=== PATIENT | female | born 1955 | race Caucasian/White ===

== ENCOUNTER 2022-01-27 00:52 | Day surgery (SDC) | payer MEDICARE, SELFPAY ==
[2022-01-13 12:48] VITALS: BMI 32.5
[2022-01-27 12:08] VITALS: BP 142/48; PULSE 66; RESP 18; TEMP 35.9; O2SAT 100; BMI 33.1
[2022-01-27] MEDS: LACTATED RINGERS 1,000 ML 150 ML IV CONT (12:32)
--- NOTE | 2022-01-27 12:32 | P.PNAN_ITS ---
Anes - Initial Pre Proc Eval Procedure: Operation Date: 01/27/22 13:30 Proposed Procedures p Screening Colonoscopy - Kehinde Broussard MD Date/Time: 01/27/22 12:32 Surgeon: Kehinde Broussard MD Pre Op Diagnosis: hx of colon polyps Patient Data Age: 66 Gender: F Height: 1.65 m Weight: 90.3 kg Last Vital Signs Temp 96.7 F L 01/27/22 12:08 Pulse 66 01/27/22 12:08 Resp 18 01/27/22 12:08 BP 142/48 H 01/27/22 12:08 Pulse Ox 100 01/27/22 12:08 O2 Del Method Room Air 01/27/22 12:08 Allergies Allergy/AdvReac Type Severity Reaction Status Date / Time nitrofurantoin Allergy Severe Swelling Verified 01/27/22 12:15 [From Macrodantin] of Lip/Tongue/Throat Sulfa (Sulfonamide Allergy Severe Swelling Verified 01/27/22 12:15 Antibiotics) of Lip/Tongue/Throat Home Medications Medication Instructions Recorded Confirmed Type alendronate 70 mg tablet 70 mg PO WEEKLY 01/13/22 01/27/22 History atorvastatin 10 mg tablet 10 mg PO DAILY 01/13/22 01/27/22 History brimonidine 0.2 % eye drops 1 drp EACH EYE BID 01/13/22 01/27/22 History bupropion HCl 300 mg 24 hr tablet, 300 mg PO DAILY 01/13/22 01/27/22 History extended release empagliflozin 25 mg tablet 25 mg PO DAILY 01/13/22 01/27/22 History (Jardiance) latanoprost 0.005 % eye drops 1 drp EACH EYE HS 01/13/22 01/27/22 History lisinopril 10 0.5 tablet PO DAILY 01/13/22 01/27/22 History mg-hydrochlorothiazide 12.5 mg tablet metformin 1,000 mg tablet 1,000 mg PO DAILY 01/13/22 01/27/22 History omega-3 fatty acids 1,000 mg PO DAILY 01/13/22 01/27/22 History omeprazole 40 mg capsule,delayed 40 mg PO DAILY 01/13/22 01/27/22 History release timolol maleate 0.5 % eye drops 1 drp EACH EYE BID 01/13/22 01/27/22 History trazodone 50 mg tablet 25 - 50 mg PO HS 01/13/22 01/27/22 History vitamin B complex 1 cap PO DAILY 01/13/22 01/27/22 History Patient hx anesthesia problems: none Family hx anesthesia problems: none Results Review: All pre-operative results and documents have been reviewed as part of the pre- operative evaluation. [facility] Social History Social History Smoking status: Never smoker Alcohol intake: never Substance use: never Substance use type: does not use Living arrangements: with family Spiritual care concerns: No Anes - Eval Final PreProcedure Day of Procedure 01/27/22 12:32 Patient weight: obese Heart: regular rate and rhythm Lungs: clear to auscultation Airway: Mallampati scale class II Neurological: alert and oriented Last oral intake: >/= 8 hours ASA classification: II Emergent: no Anesthetic plan: proceed Anesthesia type and monitoring: general GIVS and standard monitoring Results Review: All pre-operative results and documents have been reviewed as part of the pre- operative evaluation. Informed Consent: The patient's anesthetic plan and its attendant risks and benefits were discussed with the patient/family/POA. Questions were solicited and answers provided to the satisfaction of the patient/family/POA.
[2022-01-27 12:34] LABS: Glucose Point of Care 221 mg/dl (65-105)
--- NOTE | 2022-01-27 12:46 | PM.HPGS ---
History of Present Illness History of Present Illness Consent: Risks, benefits, and alternatives have been discussed and questions answered. Patient agrees to proceed with procedure. Chief complaint: hx of colon polyps Narrative: Maine Calvo is a 66 year old female referred for colon cancer screening. She had a polyp removed about 5 years ago. Review of Systems Review of Systems: All systems reviewed & are unremarkable except as noted in HPI and below PMFSH Social History Social History Smoking status: Never smoker Alcohol intake: never Substance use: never Substance use type: does not use Living arrangements: with family Spiritual care concerns: No Meds Home Medications and Allergies Home Medications Medication Instructions Recorded Confirmed Type alendronate 70 mg tablet 70 mg PO WEEKLY 01/13/22 01/27/22 History atorvastatin 10 mg tablet 10 mg PO DAILY 01/13/22 01/27/22 History brimonidine 0.2 % eye drops 1 drp EACH EYE BID 01/13/22 01/27/22 History bupropion HCl 300 mg 24 hr tablet, 300 mg PO DAILY 01/13/22 01/27/22 History extended release empagliflozin 25 mg tablet 25 mg PO DAILY 01/13/22 01/27/22 History (Jardiance) latanoprost 0.005 % eye drops 1 drp EACH EYE HS 01/13/22 01/27/22 History lisinopril 10 0.5 tablet PO DAILY 01/13/22 01/27/22 History mg-hydrochlorothiazide 12.5 mg tablet metformin 1,000 mg tablet 1,000 mg PO DAILY 01/13/22 01/27/22 History omega-3 fatty acids 1,000 mg PO DAILY 01/13/22 01/27/22 History omeprazole 40 mg capsule,delayed 40 mg PO DAILY 01/13/22 01/27/22 History release timolol maleate 0.5 % eye drops 1 drp EACH EYE BID 01/13/22 01/27/22 History trazodone 50 mg tablet 25 - 50 mg PO HS 01/13/22 01/27/22 History vitamin B complex 1 cap PO DAILY 01/13/22 01/27/22 History Allergies Allergy/AdvReac Type Severity Reaction Status Date / Time nitrofurantoin Allergy Severe Swelling Verified 01/27/22 12:15 [From Macrodantin] of Lip/Tongue/Throat Sulfa (Sulfonamide Allergy Severe Swelling Verified 01/27/22 12:15 Antibiotics) of Lip/Tongue/Throat Vital Signs Vital Signs - 24 hr 01/27/22 12:08 Temperature 35.9 C L Pulse Rate 66 Respiratory Rate 18 Blood Pressure 142/48 H Pulse Oximetry 100 Oxygen Delivery Room Air Exam Const: General: alert Orientation/consciousness: patient oriented x3 Resp: Auscultation: clear to auscultation bilaterally Cardio: Rhythm: regular rhythm GI: GI Palp: Yes Soft to palpation and No Tenderness to palpation present (GI) Neuro: General: patient oriented x3 Assessment and Plan Assessment and plan (1) Colon cancer screening: Code(s): Z12.11 - Encounter for screening for malignant neoplasm of colon Status: Acute Assessment and Plan: Colonoscopy with possible biopsy or polypectomy or cautery or injection of substances.
[2022-01-27] MEDS: SIMETHICONE ORAL SUSPENSION 20 MG/0.3 ML 30 ML BOTTLE 0.6 ML IRRIGATION (13:03)
[2022-01-27 13:13] VITALS: BP 130/53; PULSE 62; RESP 21; O2SAT 100
[2022-01-27 13:23] VITALS: BP 131/63; PULSE 60; RESP 17; O2SAT 100
[2022-01-27 13:33] VITALS: BP 135/54; PULSE 57; RESP 16; O2SAT 100
== END 2022-01-27 13:40 | disposition home or self-care (01) ==
PROVIDERS: Visit Provider Internal Medicine Gastroenterology
PROC: 0DJD8ZZ Inspection of Lower Intestinal Tract, Via Natural or Artificial Opening Endoscopic (ICD-10-PCS; CPT 45378; principal; 2022-01-27 13:30)
DX: Z12.11 Encounter for screening for malignant neoplasm of colon (principal); Z86.010 Personal history of colon polyps; E66.9 Obesity, unspecified; Z68.33 Body mass index [BMI] 33.0-33.9, adult
CPT/HCPCS: G0105; 82948; J2704; J7120

== ENCOUNTER 2022-11-23 13:50 | Emergency (ER) | payer MEDICARE, SELFPAY ==
--- NOTE | ~2022-11-23 | XR_ITS ---
EXAMINATION: XR lumbar spine 2-3V DATE: 11/23/2022 14:50 INDICATION: Low back pain. TECHNIQUE: 3 views of lumbar spine including standing views were obtained. COMPARISON: CT abdomen and pelvis 09/14/2006. FINDINGS: There is 5 mm anterolisthesis of L4 on L5. There is a compression fracture of L2 with less than 1/5 loss of height. There is mildly decreased disc height at L1-L2, L3-L4, and L4-L5. There is m ultilevel facet joint osteoarthritis, severe bilaterally at L4-L5 and L5-S1. IMPRESSION: 1. Age-indeterminate L2 compression fracture. 2. Moderate lumbar spondylosis. Reviewed, dictated and finalized at location A.
--- NOTE | ~2022-11-23 | CT_ITS ---
EXAMINATION: CT lumbar spine wo con DATE: 11/23/2022 15:46 INDICATION: Fall. Low back pain. TECHNIQUE: Computed tomography (CT) of the lumbar spine was performed without intravenous contrast. A utomated exposure control and iterative reconstruction technique were employed. The dose-length produ ct was 1193.86 mGy-cm. COMPARISON: Lumbar spine radiographs 11/23/2022 FINDINGS: There is 3 degrees levocurvature of lumbar spine. There is 5 mm anterolisthesis of L4 on L5 . There is an acute compression fracture of L2 with 1/5 loss of height. There is mildly decreased dis c height at L3-L4 and L4-L5. The following disc levels are specifically discussed: L1-L2: The disc does not extend beyond the endplate margin. There is severe right and moderate left f acet joint osteoarthritis. There is no neural foraminal stenosis. There is no central canal stenosis. L2-L3: The disc is bulging. There is severe bilateral facet joint osteoarthritis. There is mild bilat eral neural foraminal stenosis. There is mild central canal stenosis. L3-L4: The disc is bulging. There is severe bilateral facet joint osteoarthritis. There is mild bilat eral neural foraminal stenosis. There is mild central canal stenosis. L4-L5: The disc is bulging. There is severe bilateral facet joint osteoarthritis. There is mild bilat eral neural foraminal stenosis. There is mild central canal stenosis. L5-S1: The disc is bulging. There is severe bilateral facet joint osteoarthritis. There is mild bilat eral neural foraminal stenosis. There is mild central canal stenosis. IMPRESSION: 1. Acute L2 compression fracture. 2. Mild lumbar spondylosis. Reviewed, dictated and finalized at location A.
--- NOTE | ~2022-11-23 | CT_ITS ---
EXAMINATION: CT pelvis wo con DATE: 11/23/2022 15:47 INDICATION: Fall. TECHNIQUE: Computed tomography (CT) of the pelvis was performed without intravenous contrast. Automat ed exposure control and iterative reconstruction technique were employed. The dose-length product was 898.94 mGy-cm. COMPARISON: None FINDINGS: Subtle oblique lucency in the right inferior pubic ramus (axial image 96 and 97/122). No di slocation. No other potential fracture identified. Degenerative changes in the lumbar spine, bilatera l hips, bilateral SI joints, and pubic symphysis. The uterus is absent. Remaining pelvic organs are w ithin normal limits. Normal appendix. Small uncomplicated fat-containing umbilical hernia. IMPRESSION: Suspected, subtle, nondisplaced right inferior pubic ramus fracture. If consistent with the clinical picture, MR of the pelvis would be helpful for confirmation/exclusion and the identification of addit ional subtle injury, if present. Reviewed, dictated and finalized at location K. IMPRESSION: Suspected, subtle, nondisplaced right inferior pubic ramus fracture. If consist ent with the clinical picture, MR of the pelvis would be helpful for confirmati on/exclusion and the identification of additional subtle injury, if present.
[2022-11-23 13:54] VITALS: BP 156/80; PULSE 60; RESP 16; TEMP 36.2; O2SAT 100
--- NOTE | 2022-11-23 15:29 | ED.GENADULT ---
HPI - General Adult General Chief complaint: Back Pain/Injury Stated complaint: fall-back pain Time Seen by Provider: 11/23/22 15:07 History of Present Illness HPI narrative: Maine Calvo is a 67 y/o female with PMHx HLD, HTN, DM who presents today after a mechaincal ground level fall. She states that she was getting out of the car at about 1130 and was walking backwards to shut the door and her heals hit a curb and she fell right down on her bottom/ lower back. She was ambulatory immediately after the fall but comes in now due to having continued low back pain. Denies any numbness tingling to her extremities or loss of bowel or bladder. Although she does state that she has felt like she might have a UTI that started a few days ago. She denies hitting her head no LOC. Fall witnessed by her who is here with her today. Related Data Home Medications Medication Instructions Recorded Confirmed atorvastatin 10 mg tablet 10 mg PO DAILY 01/13/22 09/22/22 brimonidine 0.2 % eye drops 1 drp EACH EYE BID 01/13/22 09/22/22 bupropion HCl 300 mg 24 hr tablet, 300 mg PO DAILY 01/13/22 09/22/22 extended release empagliflozin 25 mg tablet 25 mg PO DAILY 01/13/22 09/22/22 (Jardiance) latanoprost 0.005 % eye drops 1 drp EACH EYE HS 01/13/22 09/22/22 lisinopril 10 0.5 tablet PO DAILY 01/13/22 09/22/22 mg-hydrochlorothiazide 12.5 mg tablet metformin 1,000 mg tablet 1,000 mg PO DAILY 01/13/22 09/22/22 omega-3 fatty acids 1,000 mg PO DAILY 01/13/22 09/22/22 omeprazole 40 mg capsule,delayed 40 mg PO DAILY 01/13/22 09/22/22 release timolol maleate 0.5 % eye drops 1 drp EACH EYE BID 01/13/22 09/22/22 vitamin B complex 1 cap PO DAILY 01/13/22 09/22/22 empagliflozin 25 mg tablet 25 mg PO DAILY 09/22/22 09/22/22 (Jardiance) Allergies Allergy/AdvReac Type Severity Reaction Status Date / Time ciprofloxacin [From Cipro] Allergy Severe Swelling Verified 09/22/22 15:06 of Lip/Tongue/Throat nitrofurantoin Allergy Severe Swelling Verified 09/22/22 15:06 [From Macrodantin] of Lip/Tongue/Throat Sulfa (Sulfonamide Allergy Severe Swelling Verified 09/22/22 15:06 Antibiotics) of Lip/Tongue/Throat dulaglutide [From Trulicity] AdvReac Intermediate Vomiting Verified 09/22/22 15:06 Review of Systems Review of Systems: CONSTITUTIONAL: Denies fever, chills, or sweats. EYES: Denies visual changes, redness, or discharge. ENT: Denies rhinorrhea, congestion, sore throat, or otalgia. CARDIOVASCULAR: Denies chest pain, palpitations, or edema. RESPIRATORY: Denies cough or dyspnea. GASTROINTESTINAL: Denies abdominal pain, nausea, vomiting, or diarrhea. GENITOURINARY: Denies dysuria or hematuria. SKIN: Denies rash or itching. MUSCULOSKELETAL: Reports lower back pain, and some lower pelvic pain NEUROLOGIC: Denies headache, numbness, dizziness, or weakness. PSYCHIATRIC: Denies anxiety or depression. [facility] Past Medical History Medical History Depression Glaucoma High blood pressure High cholesterol Type 2 diabetes mellitus Surgical History Surgical History H/O knee surgery H/O: hysterectomy History of delivery Family History Family History Sibling Thyroid disease Father Acute myocardial infarction Social History Social History Smoking status: Never smoker Alcohol intake: never Substance use: never Substance use type: does not use Lack of Transportation: No Lack of Food: Never True Current Housing: I Have Housing Concerned About Future Housing: No Difficulty Paying Gas/Electric Bills: No Difficulty Paying for Meds: No Currently Unemployed: No Education: Decline to Answer Difficulty w/ Childcare or Family Care: Decline to Answer Living arrangements: with fami
[2022-11-23] MEDS: KETOROLAC 30 MG/ML VIAL (*BKC) IM (15:55)
[2022-11-23 16:31] LABS: Appearance Urine Cloudy (Clear); Bacteria Urine 2+ /hpf; Bilirubin Urine Negative (Negative); Blood Urine Trace (Negative); Color Urine Dark Yellow (Yellow); Glucose Urine UA 3+ mg/dL (Negative); Ketones Urine Negative (Negative); Leukocyte Esterase Ur 2+ LEU/UL (Negative); Need Manual Microscopic Reviewed; Nitrate Urine Negative (Negative); Protein Urine Negative (Negative); RBC Urine 0-2 /hpf (0-2); Specific Grav Ur 1.022 (1.001-1.035); Squamous Epithelial Cell Urine Moderate /hpf (Few); Urobilinogen Urine 0.2 mg/dL (<2.0); WBC Clumps Urine Present /HPF; WBC Urine >100 /hpf; pH Urine 5.5 (5.0-9.0)
[2022-11-23 16:35] LABS: Add Urine Microscopic? YES
--- NOTE | 2022-11-23 17:21 | PC.NURSE ---
[facility] here to size and place patient in TLSO brace.
[2022-11-23] MEDS: LIDOCAINE HCL 1% LOCAL INJ 10 ML VIAL INFILTRATE (17:36)
[2022-11-23] MEDS: cefTRIAXone 1 GM VIAL IM (17:36)
[2022-11-23 18:12] VITALS: BP 148/78; PULSE 64; RESP 17; O2SAT 99
== END 2022-11-23 18:13 | disposition home or self-care (01) ==
PROVIDERS: Emergency Provider Nurse Practitioner Family
DX: N39.0 Urinary tract infection, site not specified (principal); S32.020A Wedge compression fracture of second lumbar vertebra, initial encounter for closed fracture; S32.591A Other specified fracture of right pubis, initial encounter for closed fracture; F32.A Depression, unspecified; I10 Essential (primary) hypertension; E78.5 Hyperlipidemia, unspecified; E11.9 Type 2 diabetes mellitus without complications; Z79.84 Long term (current) use of oral hypoglycemic drugs; V48.4XXA Person boarding or alighting a car injured in noncollision transport accident, initial encounter
CPT/HCPCS: 72100; 72131; 72192; 81001; 87077; 87086; 87147; 87186; 96372; 99284; J0696; J1885

== ENCOUNTER 2022-11-26 20:24 | Observation (INO) | payer MEDICARE, SELFPAY ==
--- NOTE | ~2022-11-26 | CT_ITS ---
EXAMINATION: CT abdomen pelvis w con DATE: 11/27/2022 02:17 INDICATION: Abdominal pain. Bloating. Nausea and vomiting. TECHNIQUE: Computed tomography (CT) of the abdomen and pelvis was performed with 100 mL Omnipaque 350 intravenous contrast. Automated exposure control and iterative reconstruction technique were employe d. The dose-length product was 1384.08 mGy-cm. COMPARISON: CT pelvis 11/23/2022, CT lumbar spine 11/23/2022, CT abdomen and pelvis 09/14/06 FINDINGS: The visualized portions of the lung bases demonstrate minimal atelectasis. No pleural effus ion. The heart size is normal. No pericardial effusion. There is a 5 mm cyst in the liver. The gallbl adder, spleen, pancreas, and left adrenal gland are normal. There is a 10 mm mass in right adrenal gl and measuring soft tissue attenuation, new from 09/14/2006. The kidneys are normal. There are no dilat ed loops of bowel. The appendix is normal. There are no pathologically enlarged lymph nodes. There is trace pelvic ascites. There is a compression fracture of L2 with less than 1/5 loss of height. There is mild lumbar and thoracic spondylosis. IMPRESSION: 1. 10 mm right adrenal mass. In the absence of known malignancy, this finding is likely an adenoma. 2. L2 compression fracture, stable from 11/23/2022. Reviewed, dictated and finalized at location E. IMPRESSION: 1. 10 mm right adrenal mass. In the absence of known malignancy, this finding i s likely an adenoma. 2. L2 compression fracture, stable from 11/23/2022.
[2022-11-26 20:26] VITALS: BP 105/63; PULSE 65; RESP 18; TEMP 36.3; O2SAT 100
[2022-11-26 20:27] VITALS: BP 187/71; PULSE 62; RESP 19; TEMP 36.4; O2SAT 100
[2022-11-26 20:38] LABS: Basophils Percent Auto 0.5 % (0.2-1.2); Eosinophils Absolute Auto 0.2 K/mm3 (0-0.3); Eosinophils Percent Auto 2.9 % (0-4.4); Hematocrit 38.3 % (37.0-47.0); Hemoglobin 13.6 g/dL (12.0-15.0); Immature Granulocyte Absolute 0.03 K/mm3 (0.00-0.031); Immature Granulocyte Percent A 0.4 % (0-0.5); Lymphocytes Absolute Auto 2.11 K/mm3 (0.9-3.2); Lymphocytes Percent Auto 26.2 % (18.3-44.2); Mean Corpuscular HGB Conc 35.5 g/dl (32-36); Mean Corpuscular Hemoglobin 30.5 pg (26-34); Mean Corpuscular Volume 85.9 fl (80-100); Mean Platelet Volume 11.3 fl (7.4-10.4); Monocytes Absolute Auto 0.8 K/mm3 (0.1-0.6); Monocytes Percent Auto 9.4 % (2.6-8.5); Neutrophils Absolute Auto 4.9 K/mm3 (1.3-6.7); Neutrophils Percent Auto 60.6 % (45.5-73.1); Platelet Count Result 210 k/mm3 (150-375); Red Blood Count 4.46 M/mm3 (4.2-5.4); Red Cell Distribution Width 11.8 % (11.5-14.5); White Blood Count 8.1 K/mm3 (4.5-10.0)
[2022-11-26 21:02] LABS: Alanine Aminotransferase 27 U/L (6-35); Albumin Level 4.1 g/dL (3.5-5.1); Alkaline Phosphatase 131 U/L (38-126); Anion Gap 12 mmol/L (8-16); Aspartate Amino Transferase 34 U/L (14-36); Bilirubin,Total 0.6 mg/dL (0.2-1.3); Blood Urea Nitrogen 12 mg/dL (7-17); Carbon Dioxide 18 mmol/L (22-30); Chloride 87 mmol/L (98-107); Estimated CRCL calculation 61 ml/min; Estimated Glomerular Filt Rate > 60; Glucose 144 mg/dL (65-110); Lipase 94 U/L (23-300); Potassium 4.2 mmol/L (3.4-5.0); Sodium 117 mmol/L (137-145)
--- NOTE | 2022-11-26 21:58 | PC.NURSE ---
Pt reports urinary retention since around 11AM today. Pt bladder scanned by this RN. 611mL scanned.
[2022-11-26 21:59] VITALS: BP 151/48; PULSE 60; RESP 13; O2SAT 100
[2022-11-26 22:39] LABS: Glucose Point of Care 148 mg/dl (65-105)
--- NOTE | 2022-11-26 22:41 | PC.NURSE ---
Pt reported urinary retention, after bladder scanning pt this RN asked pt to attempt to urinate. Pt able to void 500mL of urine
[2022-11-26 22:42] LABS: Appearance Urine Clear (Clear); Bilirubin Urine Negative (Negative); Blood Urine Negative (Negative); Color Urine Yellow (Yellow); Glucose Urine UA 3+ mg/dL (Negative); Ketones Urine 1+ mg/dL (Negative); Leukocyte Esterase Ur Negative LEU/UL (Negative); Nitrate Urine Negative (Negative); Protein Urine Negative (Negative); Specific Grav Ur 1.011 (1.001-1.035); Urobilinogen Urine 0.2 mg/dL (<2.0)
[2022-11-26 23:05] LABS: Add Urine Microscopic? NO
[2022-11-27] VITALS (8 sets, daily range): BP systolic 128–155; BP diastolic 29–89; PULSE 58–86; RESP 12–18; TEMP 36.3–36.7; O2SAT 97–100; BMI 34.7
--- NOTE | 2022-11-27 00:20 | ED.GENADULT ---
HPI - General Adult General Chief complaint: Unspecified Stated complaint: vomiting, dirrhea, weakness Time Seen by Provider: 11/26/22 23:22 History of Present Illness HPI narrative: this is a 67-year-old female presenting ED with a chief complaint of abdominal pain. Patient was seen here several days ago and diagnosed with a lumbar compression fracture and a UTI was placed on Keflex. Since then she has been taking the Keflex but says she has had difficulty urinating. Patient notes that she has been drinking large quantities of water per day. Patient is also complaining of crampy abdominal pain and feels like she has a urinary tract infection. Patient is complaining of feeling weak and generally unwell but denies fevers chest pain difficulty breathing nausea vomiting or diarrhea. Related Data Home Medications Medication Instructions Recorded Confirmed atorvastatin 10 mg tablet 10 mg PO DAILY 01/13/22 09/22/22 brimonidine 0.2 % eye drops 1 drp EACH EYE BID 01/13/22 09/22/22 bupropion HCl 300 mg 24 hr tablet, 300 mg PO DAILY 01/13/22 09/22/22 extended release empagliflozin 25 mg tablet 25 mg PO DAILY 01/13/22 09/22/22 (Jardiance) latanoprost 0.005 % eye drops 1 drp EACH EYE HS 01/13/22 09/22/22 lisinopril 10 0.5 tablet PO DAILY 01/13/22 09/22/22 mg-hydrochlorothiazide 12.5 mg tablet metformin 1,000 mg tablet 1,000 mg PO DAILY 01/13/22 09/22/22 omega-3 fatty acids 1,000 mg PO DAILY 01/13/22 09/22/22 omeprazole 40 mg capsule,delayed 40 mg PO DAILY 01/13/22 09/22/22 release timolol maleate 0.5 % eye drops 1 drp EACH EYE BID 01/13/22 09/22/22 vitamin B complex 1 cap PO DAILY 01/13/22 09/22/22 empagliflozin 25 mg tablet 25 mg PO DAILY 09/22/22 09/22/22 (Jardiance) Allergies Allergy/AdvReac Type Severity Reaction Status Date / Time ciprofloxacin [From Cipro] Allergy Severe Swelling Verified 09/22/22 15:06 of Lip/Tongue/Throat nitrofurantoin Allergy Severe Swelling Verified 09/22/22 15:06 [From Macrodantin] of Lip/Tongue/Throat Sulfa (Sulfonamide Allergy Severe Swelling Verified 09/22/22 15:06 Antibiotics) of Lip/Tongue/Throat dulaglutide [From Trulicity] AdvReac Intermediate Vomiting Verified 09/22/22 15:06 PMFSH Past Medical History Medical History Depression Glaucoma High blood pressure High cholesterol Type 2 diabetes mellitus Surgical History Surgical History H/O knee surgery H/O: hysterectomy History of delivery Family History Family History (Updated 11/25/22 @ 11:50 by Wendy Santiago MA) Sibling Thyroid disease Father Acute myocardial infarction Mother Alcoholism Social History Social History Smoking status: Never smoker Alcohol intake: never Substance use: never Substance use type: does not use Lack of Transportation: No Lack of Food: Never True Current Housing: I Have Housing Concerned About Future Housing: No Difficulty Paying Gas/Electric Bills: No Difficulty Paying for Meds: No Currently Unemployed: No Education: Decline to Answer Difficulty w/ Childcare or Family Care: Decline to Answer Living arrangements: with family Occupation/Education: retired Gender identity (if verbalized by the patient): Female Sexual Orientation (if Verbalized by the Patient): Straight or Heterosexual Spiritual care concerns: No Agree to blood products: Yes Exam Narrative: APPEARANCE: No apparent distress. Head: atraumatic. EYES: EOMI, NOSE: Atraumatic NECK: Trachea midline RESPIRATORY: No increased rate of breathing CARDIOVASCULAR: RRR, symmetric bilateral lower extremity edema ABDOMINAL: mild tenderness to palpation in the suprapubic area without guarding or rebound MUSCULOSKELETAl: No obvious deformities NEURO: Alert. Moving 4/4 extremities SKI
[2022-11-27] MEDS: HYDROcodone/acetaminophen (*CRX) 5-325 MG TABLET 1 TAB PO (03:28)
[2022-11-27] MEDS: ONDANSETRON INJ 4 MG/2 ML VIAL IV PUSH (06:36)
--- NOTE | 2022-11-27 06:48 | ADMGEN ---
This patient, Maine Calvo, was admitted to 2 Medical Room 259-01. Patient/family oriented to hospital policies and general routines including ID bracelet, bed and alarms, visiting hours, pain management, procedures, bathroom and other care routines, personal items, smoking policy, room service/diet, and visiting hours. Information on how to activate the Rapid Response Team has been discussed. Patient/Family are encouraged to report perceived risks to care and to ask questions if they do not understand what they are told or what they should do.
[2022-11-27 08:27] LABS: Glucose Point of Care 119 mg/dl (65-105)
[2022-11-27 08:53] LABS: Sodium 121 mmol/L (137-145)
[2022-11-27 09:51] LABS: Sodium Urine Random 17 meq/L
[2022-11-27] MEDS: PANTOPRAZOLE 40 MG TABLET PO (10:50)
[2022-11-27] MEDS: SODIUM CHLORIDE 0.9% IV 1,000 ML 100 ML IV CONT (10:50)
[2022-11-27] MEDS: EMPAGLIFLOZIN 25 MG TABLET PO (10:50)
[2022-11-27] MEDS: buPROPion HCL XL (24 HR) 150 MG TABCR 300 MG PO (10:50)
[2022-11-27] MEDS: ATORVASTATIN 10 MG TABLET PO (10:50)
[2022-11-27 11:51] LABS: Glucose Point of Care 223 mg/dl (65-105)
--- NOTE | 2022-11-27 12:33 | PM.CNNEP ---
Assessment and Plan Assessment and plan (1) Hyponatremia: Code(s): E87.1 - Hypo-osmolality and hyponatremia Status: Acute Assessment and Plan: presumably acute risk factors for low sodium recent excessive free water intake possible prerenal factors HCTZ use PPI use NSAID use acute pain (from #3) some improvement in sodium already (without specific intervention) check TSH, cortisol, SPE and UPEP as well as urine electrolytes trial of normal saline seems reasonable for now goal of therapy is rate of change in sodium of 6 - 8mmol/L over 24 hours (hence, no higher than 125mmol/L by 8:30pm today) follow trend of repeat sodium levels (2) Urinary tract infection: Code(s): N39.0 - Urinary tract infection, site not specified Status: Acute Assessment and Plan: previous urine culture results noted on antibiotics (3) Lumbar compression fracture: Code(s): S32.000A - Wedge compression fracture of unspecified lumbar vertebra, initial encounter for closed fracture Status: Acute Assessment and Plan: as noted by previous and current imaging following with Neurosurgery as an outpatient no surgical intervention needed I will continue to follow the patient with you while she remains hospitalized and make further recommendations as needed. Thank you for allowing me present care this patient. History of Present Illness Reason for Consult Consult date: 11/27/22 Reason for consult: hyponatremia Chief Complaint Chief complaint: hyponatremia History of Present Illness Narrative: The patient is a 67-year-old female with a past medical history as outlined below who presented to [facility] Emergency room with abdominal pain. The patient was seen a few days ago at [facility] emergency room after she suffered a fall. She was apparently getting out of her car and walking backwards when her heels got stuck in the curb resulting in the fall where she landed on her bottom/back. She immediately had pain but was able to get up and walk. Further evaluation during that ER visit noted a lumbar compression fracture by imaging as well as a urinary tract infection. She was discharged to follow up with neuro surgery regarding her lumbar compression fracture and was prescribed Keflex for her urinary tract infection. She did see neurosurgery recently in the office with recommendations for a back brace for comfort and supportive therapy as no operative intervention was needed. She reports compliance with taking her Keflex a but is noted increasing difficulty urinating. In effort to promote urine output, she has been drinking large quantities of water in the hope that this would resolve the situation/problem. However, in spite of her increased fluid intake, she has not noted any increase in urine output and now has a crampy abdominal pain that feels like a urinary tract infection despite the ongoing antibiotic therapy. She also reports feeling generalized weakness and not feeling well but denies any other subjective symptoms. She presented to the ER for further assessment. Workup and evaluation emergency room demonstrated the patient to be hemodynamically stable and in no acute distress. Routine blood test demonstrated no significant abnormalities aside from significant hyponatremia with a sodium level of 117. on her previous ER evaluation a few days ago, no blood work was done and there are no other previous labs to compare to. Her repeat urine testing did not show any evidence of infection but she did undergo a CT scan of the abdomen pelvis given her abdominal pain which demonstrated a 10 mm right adrenal mass thought to be at adenoma and the previous we known L2 compression fracture but no other intra-abdominal pathology. Given her significant hyponatremia, she was admitted to the hospital for further evaluation and therapy. Since her admission, her sodium level has
[2022-11-27 12:34] LABS: Sodium 123 mmol/L (137-145)
--- NOTE | 2022-11-27 14:21 | PM.IMHP ---
H&P: HPI History of Present Illness Date/Time: 11/27/22 14:21 Chief Complaint: abdominal pain Narrative: 67-year-old female present to the ED with chief complaint of abdominal pain. CT was in the ER after a fall few days back and sustained a lumbar compression fracture and UTI. She has been placed on Keflex. She states she has been taking keep legs but still has difficulty urination. She has been drinking large amount of water to get to urinate. She started having crampy abdominal pain and started having generalized weakness and not feeling well no fever shortness of breath cough chest pain. No nausea vomiting or diarrhea. The ED evaluation her vitals were stable 3rd her sodium level came back at 117. For abdominal pain CT abdomen pelvis was done showed 10 mm right adrenal mass likely an adenoma with L2 compression fractures stable from 11/23/2022. Given the hyponatremia has been admitted for further treatment. Review of Systems Review of Systems: All systems reviewed & are unremarkable except as noted in HPI and below PMFSH Past Medical History Medical History Depression Glaucoma High blood pressure High cholesterol Type 2 diabetes mellitus Surgical History Surgical History H/O knee surgery H/O: hysterectomy History of delivery Family History Family History (Updated 11/25/22 @ 11:50 by Wendy Santiago MA) Sibling Thyroid disease Father Acute myocardial infarction Mother Alcoholism Social History Social History Smoking status: Never smoker Alcohol intake: never Substance use: never Substance use type: does not use Lack of Transportation: No Lack of Food: Never True Current Housing: I Have Housing Concerned About Future Housing: No Difficulty Paying Gas/Electric Bills: No Difficulty Paying for Meds: No Currently Unemployed: No Education: Associate Degree Difficulty w/ Childcare or Family Care: No Living arrangements: with family Occupation/Education: retired Gender identity (if verbalized by the patient): Female Sexual Orientation (if Verbalized by the Patient): Straight or Heterosexual Spiritual care concerns: No Agree to blood products: Yes Meds Home Medications and Allergies Home Medications Medication Instructions Recorded Confirmed Type atorvastatin 10 mg tablet 10 mg PO DAILY 01/13/22 11/27/22 History brimonidine 0.2 % eye drops 1 drp EACH EYE BID 01/13/22 11/27/22 History bupropion HCl 300 mg 24 hr tablet, 300 mg PO DAILY 01/13/22 11/27/22 History extended release latanoprost 0.005 % eye drops 1 drp EACH EYE HS 01/13/22 11/27/22 History lisinopril 10 0.5 tablet PO DAILY 01/13/22 11/27/22 History mg-hydrochlorothiazide 12.5 mg tablet metformin 1,000 mg tablet 1,000 mg PO DAILY 01/13/22 11/27/22 History omeprazole 40 mg capsule,delayed 40 mg PO DAILY 01/13/22 11/27/22 History release timolol maleate 0.5 % eye drops 1 drp EACH EYE BID 01/13/22 11/27/22 History empagliflozin 25 mg tablet 25 mg PO DAILY 09/22/22 11/27/22 History (Jardiance) estradiol 0.01% (0.1 mg/gram) 1 g vaginal 3XW #42.5 grams 09/27/22 11/27/22 Rx vaginal cream cephalexin 500 mg capsule 500 mg PO Q12H #14 caps 11/23/22 11/27/22 Rx cyclobenzaprine 10 mg tablet 10 mg PO TID PRN muscle spasm #30 11/23/22 11/27/22 Rx tabs naproxen 500 mg tablet 500 mg PO BID #14 tabs 11/23/22 11/27/22 Rx dicyclomine 10 mg capsule 10 mg PO TID PRN Abdominal 11/27/22 11/27/22 History Discomfort Allergies Allergy/AdvReac Type Severity Reaction Status Date / Time ciprofloxacin [From Cipro] Allergy Severe Swelling Verified 09/22/22 15:06 of Lip/Tongue/Throat nitrofurantoin Allergy Severe Swelling Verified 09/22/22 15:06 [From Macrodantin] of Lip/Tongue/Throat Sulfa (Sulfonamide
[2022-11-27 16:25] LABS: Sodium 129 mmol/L (137-145)
[2022-11-27 16:54] LABS: Glucose Point of Care 183 mg/dl (65-105)
[2022-11-27] MEDS: NAPROXEN 500 MG TABLET PO (18:30)
[2022-11-27] MEDS: DESMOPRESSIN ACETATE 4 MCG/ML AMP 1 MCG SUB-Q (18:31)
[2022-11-27] MEDS: TIMOLOL MALEATE 0.5% OP SOLN 5 ML BOTTLE 1 DROP EACH EYE (18:31)
[2022-11-27] MEDS: BRIMONIDINE TARTRATE 0.2% OP SOLN 5 ML BTL 1 DROP EACH EYE (18:31)
[2022-11-27] MEDS: DEXTROSE 5% IN WATER 500 ML 250 ML IV CONT (18:32)
[2022-11-27] MEDS: CYCLOBENZAPRINE HCL 10 MG TABLET PO (18:42)
[2022-11-27 20:23] LABS: Glucose Point of Care 259 mg/dl (65-105)
[2022-11-27] MEDS: AMOXICILLIN/CLAVULANATE K 875-125 MG TAB 1 TABLET PO (21:02)
[2022-11-27] MEDS: LATANOPROST 0.005% OP SOLN 2.5 ML BTL 1 DROP EACH EYE (21:03)
[2022-11-27 22:13] LABS: Sodium 123 mmol/L (137-145)
[2022-11-28] MEDS: MELATONIN 5 MG TABLET PO ×2 (00:19→20:21)
[2022-11-28] MEDS: SODIUM CHLORIDE 0.9% IV 1,000 ML 50 ML IV CONT (01:45)
[2022-11-28 02:21] VITALS: BP 138/42
[2022-11-28 05:26] LABS: Basophils Absolute Auto 0.1 K/mm3 (0.0-0.1); Basophils Percent Auto 0.9 % (0.2-1.2); Eosinophils Absolute Auto 0.3 K/mm3 (0-0.3); Eosinophils Percent Auto 4.4 % (0-4.4); Hematocrit 35.1 % (37.0-47.0); Immature Granulocyte Absolute 0.02 K/mm3 (0.00-0.031); Immature Granulocyte Percent A 0.3 % (0-0.5); Lymphocytes Absolute Auto 1.79 K/mm3 (0.9-3.2); Lymphocytes Percent Auto 28.2 % (18.3-44.2); Mean Corpuscular HGB Conc 34.2 g/dl (32-36); Mean Corpuscular Hemoglobin 30.9 pg (26-34); Mean Corpuscular Volume 90.5 fl (80-100); Mean Platelet Volume 11.7 fl (7.4-10.4); Monocytes Absolute Auto 0.9 K/mm3 (0.1-0.6); Monocytes Percent Auto 14.5 % (2.6-8.5); Neutrophils Absolute Auto 3.3 K/mm3 (1.3-6.7); Neutrophils Percent Auto 51.7 % (45.5-73.1); Platelet Count Result 184 k/mm3 (150-375); Red Blood Count 3.88 M/mm3 (4.2-5.4); White Blood Count 6.4 K/mm3 (4.5-10.0)
[2022-11-28 05:39] LABS: Alanine Aminotransferase 22 U/L (6-35); Albumin Level 3.3 g/dL (3.5-5.1); Alkaline Phosphatase 101 U/L (38-126); Anion Gap 5 mmol/L (8-16); Aspartate Amino Transferase 24 U/L (14-36); Bilirubin,Total 0.4 mg/dL (0.2-1.3); Blood Urea Nitrogen 10 mg/dL (7-17); Calcium 8.8 mg/dL (8.4-10.2); Carbon Dioxide 21 mmol/L (22-30); Chloride 100 mmol/L (98-107); Estimated CRCL calculation 61 ml/min; Estimated Glomerular Filt Rate > 60; Glucose 110 mg/dL (65-110); Potassium 3.8 mmol/L (3.4-5.0); Sodium 126 mmol/L (137-145)
[2022-11-28 05:57] VITALS: BP 142/44; PULSE 60; RESP 18; TEMP 36.3; O2SAT 99
[2022-11-28 08:16] LABS: Glucose Point of Care 133 mg/dl (65-105)
[2022-11-28] MEDS: PANTOPRAZOLE 40 MG TABLET PO (09:35)
[2022-11-28] MEDS: AMOXICILLIN/CLAVULANATE K 875-125 MG TAB 1 TABLET PO ×2 (09:35→20:21)
[2022-11-28] MEDS: ATORVASTATIN 10 MG TABLET PO (09:35)
[2022-11-28] MEDS: NAPROXEN 500 MG TABLET PO ×2 (09:35→17:49)
[2022-11-28] MEDS: buPROPion HCL XL (24 HR) 150 MG TABCR 300 MG PO (09:35)
[2022-11-28] MEDS: EMPAGLIFLOZIN 25 MG TABLET PO (09:35)
[2022-11-28] MEDS: BRIMONIDINE TARTRATE 0.2% OP SOLN 5 ML BTL 1 DROP EACH EYE ×2 (09:35→17:48)
[2022-11-28] MEDS: TIMOLOL MALEATE 0.5% OP SOLN 5 ML BOTTLE 1 DROP EACH EYE ×2 (09:36→17:48)
[2022-11-28 11:20] LABS: Sodium 126 mmol/L (137-145)
--- NOTE | 2022-11-28 11:46 | PM.PNNEP ---
Progress Note: A&P Assessment and Plan (1) Hyponatremia: Code(s): E87.1 - Hypo-osmolality and hyponatremia Status: Acute Assessment and Plan: presumably acute risk factors for low sodium recent excessive free water intake possible prerenal factors HCTZ use PPI use NSAID use acute pain (from #3) evaluation to date: TSH okay urine electrolytes prerenal will hold off on cortisol, SPEP, UPEP...etc since sodium improving with current interventiosn continue normal saline IVFs for now goal of therapy is rate of change in sodium of 6 - 8mmol/L over 24 hours evidence of overcorrection yesterday so s/p DDAVP and D5W IVFs follow trend of repeat sodium levels (2) Urinary tract infection: Code(s): N39.0 - Urinary tract infection, site not specified Status: Acute Assessment and Plan: previous urine culture results noted on antibiotics (3) Lumbar compression fracture: Code(s): S32.000A - Wedge compression fracture of unspecified lumbar vertebra, initial encounter for closed fracture Status: Acute Assessment and Plan: as noted by previous and current imaging following with Neurosurgery as an outpatient no surgical intervention needed Will continue to follow. Subjective Date/time seen: 11/28/22 11:46 Interval history: Follow-up for acute hyponatremia. Sodium overcorrected yesterday so given D5W IVF and DDAVP to slow down sodium correction; otherwise, she feels reasonably well at this time; no apparent distress voiced; no other issues/events overnight or earlier this morning. Exam Narrative: General: WD/WN female in NAD Heart: normal S1 and S2; no rub Lungs: clear to auscultation Abdomen: soft, nontender, nondistended, positive bowel sounds Extremities: no cyanosis or clubbing; no edema Skin: warm and dry Objective Data Vital Signs Vital Signs: Vital Signs Temp Pulse Resp BP Pulse Ox O2 Del Method 11/28/22 11:30 97.6 F 64 18 135/45 L 100 11/28/22 05:57 97.4 F L 60 18 142/44 H 99 11/28/22 02:21 138/42 L 11/27/22 20:00 Room Air 11/27/22 20:05 97.9 F 75 18 135/29 L 97 Intake/Output Intake/Output: Intake & Output 08/02/0711/26/22 11/27/22 11/28/22 23:59 23:59 23:59 23:59 Intake Total 1580 950 Output Total 0 1400 900 Balance 0 180 50 Meds/Results Medications: Active Medications Generic Name Dose Route Start Last Admin Trade Name Freq PRN Reason Stop Dose Admin Amoxicillin/Clavulanate Potassium 1 tablet 11/27/22 21:00 11/28/22 09:35 Amoxicillin/Clavulanate K 875-125 Mg Tab PO 1 tablet Q12HR SANTINO Administration Atorvastatin Calcium 10 mg 11/27/22 09:00 11/28/22 09:35 Atorvastatin 10 Mg Tablet PO 10 mg DAILY SANTINO Administration Brimonidine Tartrate 1 drop 11/27/22 17:00 11/28/22 09:35 Brimonidine Tartrate 0.2% Op Soln 5 Ml Btl EACH EYE 1 drop BID SANTINO Administration Bupropion HCl 300 mg 11/27/22 09:00 11/28/22 09:35 Bupropion Hcl Xl (24 Hr) 150 Mg Tabcr PO 300 mg DAILY SANTINO Administration Cyclobenzaprine HCl 10 mg 11/27/22 09:18 11/27/22 18:42 Cyclobenzaprine Hcl 10 Mg Tablet PO 10 mg TID PRN Administration muscle spasm Dextrose 12.5 gm 11/27/22 12:08 Dextrose 50% 25 Gm/50 Ml Syringe IV PUSH PRN PRN Hypoglycemia Protocol Dicyclomine HCl 10 mg 11/27/22 09:18 Dicyclomine Hcl 10 Mg Capsule PO TID PRN Abdominal Discomfort Empagliflozin 25 mg 11/27/22 09:00 11/28/22 09:35 Empagliflozin 25 Mg Tablet PO 25 mg DAILY SANTINO Administration Estradiol 1 applic 11/29/22 09:00 Estradiol Vaginal Cream 42.5 Gm VAGINAL [id number] SANTINO Glucagon 1 mg 11/27/22 12:08 Glucagon For Inj 1 Mg Vial IM PRN PRN Hypoglycemia Protocol Glucose 15 gm 11/27/22 12:08 Glucose Oral Gel 15 Gm Of Glucse In 37.5 Gm Tube PO PRN PRN H
--- NOTE | 2022-11-28 11:46 | P.PNNP_ITS ---
Progress Note: A&P Assessment and Plan (1) Hyponatremia: Code(s): E87.1 - Hypo-osmolality and hyponatremia Status: Acute Assessment and Plan: * presumably acute * risk factors for low sodium * recent excessive free water intake * possible prerenal factors * HCTZ use * PPI use * NSAID use * acute pain (from #3) * evaluation to date: * TSH okay * urine electrolytes prerenal * will hold off on cortisol, SPEP, UPEP...etc since sodium improving with current interventiosn * continue normal saline IVFs for now * goal of therapy is rate of change in sodium of 6 - 8mmol/L over 24 hours * evidence of overcorrection yesterday so s/p DDAVP and D5W IVFs * follow trend of repeat sodium levels (2) Urinary tract infection: Code(s): N39.0 - Urinary tract infection, site not specified Status: Acute Assessment and Plan: * previous urine culture results noted * on antibiotics (3) Lumbar compression fracture: Code(s): S32.000A - Wedge compression fracture of unspecified lumbar vertebra, initial encounter for closed fracture Status: Acute Assessment and Plan: * as noted by previous and current imaging * following with Neurosurgery as an outpatient * no surgical intervention needed Will continue to follow. Subjective Date/time seen: 11/28/22 11:46 Interval history: Follow-up for acute hyponatremia. Sodium overcorrected yesterday so given D5W IVF and DDAVP to slow down sodium correction; otherwise, she feels reasonably well at this time; no apparent distress voiced; no other issues/events overnight or earlier this morning. Exam Narrative: General: WD/WN female in NAD Heart: normal S1 and S2; no rub Lungs: clear to auscultation Abdomen: soft, nontender, nondistended, positive bowel sounds Extremities: no cyanosis or clubbing; no edema Skin: warm and dry Objective Data Vital Signs Vital Signs: Vital Signs Temp Pulse Resp BP Pulse Ox O2 Del Method 11/28/22 11:30 97.6 F 64 18 135/45 L 100 11/28/22 05:57 97.4 F L 60 18 142/44 H 99 11/28/22 02:21 138/42 L 11/27/22 20:00 Room Air 11/27/22 20:05 97.9 F 75 18 135/29 L 97 Intake/Output Intake/Output: Intake & Output 11/25/22 11/26/22 11/27/22 11/28/22 23:59 23:59 23:59 23:59 Intake Total 1580 950 Output Total 0 1400 900 Balance 0 180 50 Meds/Results Medications: Active Medications Generic Name Dose Route Start Last Admin Trade Name Freq PRN Reason Stop Dose Admin Amoxicillin/Clavulanate Potassium 1 tablet 11/27/22 21:00 11/28/22 09:35 Amoxicillin/Clavulanate K 875-125 Mg Tab PO 1 tablet Q12HR SANTINO Administration Atorvastatin Calcium 10 mg 11/27/22 09:00 11/28/22 09:35 Atorvastatin 10 Mg Tablet PO 10 mg DAILY SANTINO Administration Brimonidine Tartrate 1 drop 11/27/22 17:00 11/28/22 09:35 Brimonidine Tartrate 0.2% Op Soln 5 Ml Btl EACH EYE 1 drop BID SANTINO Administration Bupropion HCl 300 mg 11/27/22 09:00 11/28/22 09:35 Bupropion Hcl Xl (24 Hr) 150 Mg Tabcr PO 300 mg DAILY SANTINO Administration Cyclo
[2022-11-28 11:50] LABS: Glucose Point of Care 227 mg/dl (65-105)
--- NOTE | 2022-11-28 12:25 | PM.IMPN ---
Progress Note: A&P Assessment and Plan (1) Hypo-osmolar hyponatremia: Code(s): E87.1 - Hypo-osmolality and hyponatremia Status: Acute (2) Adrenal mass: Code(s): E27.8 - Other specified disorders of adrenal gland Status: Acute (3) Lumbar compression fracture: Code(s): S32.000A - Wedge compression fracture of unspecified lumbar vertebra, initial encounter for closed fracture Status: Acute Plan 67-year-old female present to the ED with chief complaint of abdominal pain. CT was in the ER after a fall few days back and sustained a lumbar compression fracture and UTI. She has been placed on Keflex. She states she has been taking keep legs but still has difficulty urination. She has been drinking large amount of water to get to urinate. She started having crampy abdominal pain and started having generalized weakness and not feeling well no fever shortness of breath cough chest pain. No nausea vomiting or diarrhea. The ED evaluation her vitals were stable 3rd her sodium level came back at 117. For abdominal pain CT abdomen pelvis was done showed 10 mm right adrenal mass likely an adenoma with L2 compression fractures stable from 11/23/2022. Given the hyponatremia has been admitted for further treatment. Hyponatremia likely hypovolemic though component of excessive intake of water is also possible. she clinically looks hypovolemic will give normal saline infusion and monitor sodium level every 4 hours. Repeat sodium level this a.m. at 121. goal rate of correction 8-10 mEq per day. will check her TSH level. Nephrology consultation. On water restriction calculated osmolality 246. Urine studies sent. Sodium level slowly improving. Continue current management Urinary symptoms her UA came back negative for any infection. Due to her recent fall her pelvic CT also showed suspected subtle nondisplaced right inferior pubic ramus fracture. Urine culture growing Klebsiella and group B Streptococcus sensitive to Augmentin. initiated that. Improving L2 compression fracture seen Neurosurgery as an outpatient on TLSO brace type 2 diabetes on Jardiance and metformin. Add SSI however refusing her insulin Incidental adrenal adenoma follow-up as an outpatient basis DVT prophylaxis: Lovenox Subjective Date/time seen: 11/28/22 12:25 Interval history: no overnight events, no abdominal pain, nausea, vomiting. feeling better. no fever, chills. Review of Systems Review of Systems: All systems reviewed & are unremarkable except as noted in HPI and below Exam Narrative: APPEARANCE: No apparent distress. Head: atraumatic.normocephalic EYES:? EOMI, NOSE: Atraumatic NECK: Trachea midline RESPIRATORY: No increased rate of breathing CARDIOVASCULAR: RRR, symmetric bilateral lower extremity edema ABDOMINAL:? ? mild tenderness to palpation in the suprapubic area without guarding or rebound MUSCULOSKELETAl: No obvious deformities NEURO: Alert. Moving 4/4 extremities SKIN:: Warm, dry. Normal color PSYCHIATRIC: Normal affect Objective Data Vital Signs Vital Signs: Vital Signs - 24 hr 11/27/22 14:00 11/27/22 20:05 11/27/22 20:00 Temperature 97.6 F 97.9 F Pulse Rate 86 75 Respiratory Rate 18 18 Blood Pressure 155/36 H 135/29 L Pulse Oximetry 100 97 Oxygen Delivery Room Air 11/28/22 02:21 11/28/22 05:57 Temperature 97.4 F L Pulse Rate 60 Respiratory Rate 18 Blood Pressure 138/42 L 142/44 H Pulse Oximetry 99 Oxygen Delivery Intake/Output Intake/Output: Intake & Output 11/25/22 11/26/22 11/27/22 11/28/22 23:59 23:59 23:59 23:59 Intake Total 1580 590 Output Total 0 1400 900 Balance 0 180 -310 Meds/Results Medications: Active Medications Generic Name Dose Route Start Last Admin Trade Name Freq PRN Reason Stop Dose Admin Amoxicillin/Clavulanate Potassium 1 tablet 11/27/22 21:00 11/28/22 09:35 Amoxicillin/Clavulanate K 875-125 Mg Tab PO 1 tablet
[2022-11-28 14:00] VITALS: BP 135/45; PULSE 64; RESP 18; TEMP 36.4; O2SAT 100
--- NOTE | 2022-11-28 14:06 | PC.NURSE ---
com writer reviewed Roxanne Fernández charting/ assessments and agree with findings
[2022-11-28 17:03] LABS: Glucose Point of Care 143 mg/dl (65-105)
[2022-11-28 18:57] LABS: Sodium 132 mmol/L (137-145)
[2022-11-28 20:06] LABS: Glucose Point of Care 246 mg/dl (65-105)
[2022-11-28] MEDS: LATANOPROST 0.005% OP SOLN 2.5 ML BTL 1 DROP EACH EYE (20:21)
[2022-11-28 20:38] VITALS: BP 148/53; PULSE 72; RESP 17; TEMP 36.8; O2SAT 99
[2022-11-29 05:21] LABS: Basophils Absolute Auto 0.1 K/mm3 (0.0-0.1); Basophils Percent Auto 0.8 % (0.2-1.2); Eosinophils Absolute Auto 0.4 K/mm3 (0-0.3); Eosinophils Percent Auto 6.1 % (0-4.4); Hematocrit 36.3 % (37.0-47.0); Immature Granulocyte Absolute 0.02 K/mm3 (0.00-0.031); Immature Granulocyte Percent A 0.3 % (0-0.5); Lymphocytes Absolute Auto 1.89 K/mm3 (0.9-3.2); Lymphocytes Percent Auto 31.8 % (18.3-44.2); Mean Corpuscular HGB Conc 33.1 g/dl (32-36); Mean Corpuscular Hemoglobin 30.2 pg (26-34); Mean Corpuscular Volume 91.2 fl (80-100); Mean Platelet Volume 11.3 fl (7.4-10.4); Monocytes Absolute Auto 0.7 K/mm3 (0.1-0.6); Monocytes Percent Auto 12.4 % (2.6-8.5); Neutrophils Absolute Auto 2.9 K/mm3 (1.3-6.7); Neutrophils Percent Auto 48.6 % (45.5-73.1); Platelet Count Result 190 k/mm3 (150-375); Red Blood Count 3.98 M/mm3 (4.2-5.4); Red Cell Distribution Width 12.2 % (11.5-14.5)
[2022-11-29 05:33] VITALS: BP 152/55; PULSE 74; RESP 17; TEMP 36.9; O2SAT 98
[2022-11-29 05:50] LABS: Alanine Aminotransferase 28 U/L (6-35); Albumin Level 3.5 g/dL (3.5-5.1); Alkaline Phosphatase 106 U/L (38-126); Anion Gap 6 mmol/L (8-16); Aspartate Amino Transferase 29 U/L (14-36); Bilirubin,Total 0.4 mg/dL (0.2-1.3); Blood Urea Nitrogen 10 mg/dL (7-17); Calcium 8.7 mg/dL (8.4-10.2); Carbon Dioxide 21 mmol/L (22-30); Chloride 102 mmol/L (98-107); Estimated CRCL calculation 61 ml/min; Estimated Glomerular Filt Rate > 60; Glucose 124 mg/dL (65-110); Magnesium 2.1 mg/dL (1.6-2.3); Potassium 3.7 mmol/L (3.4-5.0); Sodium 129 mmol/L (137-145)
[2022-11-29] MEDS: SODIUM CHLORIDE 0.9% IV 1,000 ML 75 ML IV CONT (06:40)
[2022-11-29 08:11] LABS: Glucose Point of Care 144 mg/dl (65-105)
[2022-11-29] MEDS: ATORVASTATIN 10 MG TABLET PO (09:41)
[2022-11-29] MEDS: buPROPion HCL XL (24 HR) 150 MG TABCR 300 MG PO (09:41)
[2022-11-29] MEDS: AMOXICILLIN/CLAVULANATE K 875-125 MG TAB 1 TABLET PO (09:41)
[2022-11-29] MEDS: TIMOLOL MALEATE 0.5% OP SOLN 5 ML BOTTLE 1 DROP EACH EYE (09:41)
[2022-11-29] MEDS: BRIMONIDINE TARTRATE 0.2% OP SOLN 5 ML BTL 1 DROP EACH EYE (09:41)
[2022-11-29] MEDS: ESTRADIOL VAGINAL CREAM 42.5 GM 1 APPLIC VAGINAL (09:42)
[2022-11-29] MEDS: EMPAGLIFLOZIN 25 MG TABLET PO (09:42)
[2022-11-29] MEDS: PANTOPRAZOLE 40 MG TABLET PO (09:42)
[2022-11-29] MEDS: NAPROXEN 500 MG TABLET PO (09:42)
[2022-11-29 09:45] VITALS: PULSE 74; RESP 17; O2SAT 98
[2022-11-29 12:20] LABS: Glucose Point of Care 229 mg/dl (65-105)
[2022-11-29] MEDS: polyethylene glycoL 3350 17 GM POWD.PACK PO (12:34)
[2022-11-29] MEDS: INSULIN ASPART (*BKC) 100 UNITS/ML SUB-Q (12:38)
--- NOTE | 2022-11-29 12:56 | PM.DS ---
DS: Admitting Diagnosis Discharge Date 11/29/2022 Admitting Diagnosis Abdominal pain DS: Discharge Diagnosis Discharge Diagnosis (1) Hypo-osmolar hyponatremia: Code(s): E87.1 - Hypo-osmolality and hyponatremia Status: Acute (2) Adrenal mass: Code(s): E27.8 - Other specified disorders of adrenal gland Status: Acute (3) Lumbar compression fracture: Code(s): S32.000A - Wedge compression fracture of unspecified lumbar vertebra, initial encounter for closed fracture Status: Acute DS: Summary Hospital Course Hospital Course: 67-year-old female present to the ED with chief complaint of abdominal pain.? CT was in the ER after a fall few days back and sustained a lumbar compression fracture and also was diagnosed with UTI.? She has been placed on Keflex.? She states she has been taking lots of water but still has difficulty urination.? She started having crampy abdominal pain and started having generalized weakness and not feeling well no fever shortness of breath cough chest pain.? No nausea vomiting or diarrhea.? The ED evaluation her vitals were stable 3rd her sodium level came back at 117.? For abdominal pain CT abdomen pelvis was done showed 10 mm right adrenal mass likely an adenoma with L2 compression fractures stable from 11/23/2022.? ? Given the hyponatremia has been admitted for further treatment. Hyponatremia likely hypovolemic? though component of excessive intake of water is also possible. she clinically looks hypovolemic treated with normal saline infusion. To maintain the sodium rise not more than 6-8 per day she received DDAVP and also dextrose infusion during the hospital stay. She had a steady rise in her sodium level with this treatment with her discharge sodium level of 129. Nephrology was following and okay for discharge. She was also on hydrochlorothiazide which was recently started and has discontinued. He was also drinking excessive water and suggested to limit on water use. Repeat labs for a week after discharge his ordered. Her thyroid function was normal. For her urinary symptoms, urinalysis was done which came back negative for infection.? Due to her? recent fall her pelvic CT also showed suspected subtle nondisplaced right inferior? pubic ramus fracture.? Urine culture growing? Klebsiella and group B Streptococcus sensitive to Augmentin. She was started on Augmentin which improved her urinary symptoms as well. L2 compression fracture seen Neurosurgery as an outpatient on TLSO brace as needed and will follow up with Neurosurgery as an outpatient basis ?type 2 diabetes on Jardiance and metformin.? Add SSI however refusing her insulin. Resume home medication at discharge Incidental adrenal adenoma follow-up as an outpatient basis DVT? prophylaxis: Lovenox Time Spent with Patient Time attestation: Total time spent providing and/or coordinating discharge services: 40 minutes Exam Narrative: APPEARANCE: No apparent distress. Head: atraumatic.normocephalic EYES:? EOMI, NOSE: Atraumatic NECK: Trachea midline RESPIRATORY: No increased rate of breathing CARDIOVASCULAR: RRR, symmetric bilateral lower extremity edema ABDOMINAL:? ? mild tenderness to palpation in the suprapubic area without guarding or rebound MUSCULOSKELETAl: No obvious deformities NEURO: Alert. Moving 4/4 extremities SKIN:: Warm, dry. Normal color PSYCHIATRIC: Normal affect DS: Data Data Completed and Pending Labs on day of discharge: Labs from last 24 hours 11/29/22 11/29/22 11/29/22 12:16 08:05 04:54 WBC 6.0 RBC 3.98 L Hgb 12.0 Hct 36.3 L MCV 91.2 MCH 30.2 MCHC 33.1 RDW 12.2 Plt Count 190 MPV 11.3 H Immature Gran % (Auto) 0.3 Neut % (Auto) 48.6 Lymph % (Auto) 31.8 Bryan % (Auto) 12.4 H Eos % (Auto) 6.1 H Baso % (Auto) 0.8 Lymph # (Auto) 1.89 Bryan # (Auto) 0.7 H Eos # (Auto) 0.4 H Baso # (Auto) 0.1 Abs Immat Gran (auto) 0.02 Absolut
[2022-12-01 13:23] LABS: Osmolality, Urine 265 mOsm/kg (50-1200)
== END 2022-11-29 14:10 | disposition home or self-care (01) ==
LOC: ANHED 11-27 05:40 → ANH2MED 11-27 07:30
PROVIDERS: Chiropractor; Internal Medicine Nephrology; Admitting Provider Internal Medicine; Emergency Provider Emergency Medicine; Visit Provider Internal Medicine
DX: E87.1 Hypo-osmolality and hyponatremia (principal); N39.0 Urinary tract infection, site not specified; E27.8 Other specified disorders of adrenal gland; S32.000D Wedge compression fracture of unspecified lumbar vertebra, subsequent encounter for fracture with routine healing; W01.0XXD Fall on same level from slipping, tripping and stumbling without subsequent striking against object, subsequent encounter; I10 Essential (primary) hypertension; E78.00 Pure hypercholesterolemia, unspecified; E11.9 Type 2 diabetes mellitus without complications; H40.9 Unspecified glaucoma; F32.A Depression, unspecified; Z79.84 Long term (current) use of oral hypoglycemic drugs
CPT/HCPCS: 36415; 74177; 80053; 81003; 82948; 83690; 83735; 83930; 83935; 84295; 84300; 84443; 85025; 96361; 96365; 96366; 99285; A9270; G0378; J1815; J2405; J2597; J7030; J7060; Q9967

== ENCOUNTER 2024-10-16 20:09 | Emergency (ER) | payer MEDICARE, SELFPAY ==
[2024-10-16] VITALS (7 sets, daily range): BP systolic 133–201; BP diastolic 62–106; PULSE 71–80; RESP 12–20; TEMP 36.6; O2SAT 96–100
--- NOTE | ~2024-10-16 | CT_ITS ---
CT ANGIOGRAM NECK AND HEAD History: Headache, paresthesias. Technique: Axial noncontrast imaging of the brain was performed. Serial spiral axial images through t he head and neck were then obtained during arterial phase IV injection of 100 cc of Omnipaque 350. 3- D postprocessing and MIP images were then reconstructed on the remote workstation. Dose reduction boogie hnique was used on this scan by utilizing automated exposure control and iterative reconstruction boogie hnique. The dose-length product (DLP) was 1618.80 mGy-cm. CTA neck findings: Bilateral vertebral arteries are patent. Bilateral common carotid, internal carot id, and external carotid arteries are patent. There are calcified plaques the bilateral internal hylton tid artery origin regions without significant stenosis on either side. The proximal right internal ca rotid artery demonstrates 0% stenosis relative to the normal distal artery lumen diameter. The proxim al left internal carotid artery demonstrates 0% stenosis relative to the normal distal artery lumen d iameter. CTA head findings: Distal vertebral arteries, basilar artery, and posterior cerebral arteries are pat ent. Distal internal carotid arteries, middle cerebral arteries, and anterior cerebral arteries are p atent. No large vessel occlusion or stenosis. No aneurysm. Axial noncontrast imaging of the brain is unremarkable. No acute infarct, intracranial hemorrhage, or mass lesion identified. No mass effect or midline shift. Minimal chronic white matter changes are pr esent in the periventricular white matter. Ruiz-white differentiation is otherwise intact. Paranasal sinuses and mastoid air cells are clear. Calvarium intact. Impression: No significant abnormality. Reviewed, dictated and finalized at location . Impression: No significant abnormality.
--- OUTSIDE RECORDS SUMMARY | 2024-10-16 20:11 | XMS_ITS | Data Portability ---
Author Organization [place] [facility], Main Office Address [address] [place] [address] Care Team Providers Care Under Cutting Machine Operator Name Role Phone MIMADEANDREH Primary Care Provider Assessment Encounter Date Assessment Date Assessment LastModified by Organization Details LastModified Time 09/27/2022 09/27/2022 This note is dictated and transcribed by [employer] Direct [employer]. Picker Tender variances may occur. Despite proofreading, typographical errors may occur. [email or web address] Not available 09/29/2022 14:02:55 Plan of Treatment Reminders Order Date Submit Date Provider Last Modified By Organization Details Last Modified Time Details Appointments None record ed. Lab None record ed. Referral None record ed. Procedures None record ed. Surgeries None record ed. Imaging XR, foot, 3 or more view 023 09/30/19 23 [email or web address] [facility] [place], [address], [place], [address], 3 14:06:15 XR, foot, 3 or more view 023 09/30/19 23 [email or web address] [facility] [place], [address], [place], [address], 3 14:06:15 Medication Orders None record ed. Patient TargetsNo targets recorded. Patient InstructionsNo instructions recorded. Reason for Referral None Reported. Results Created Date Observation Date Name Description Value Unit Range Abnormal Flag Note LastModifiedBy Organization Detail LastModifiedTime 06/14/20 23 XR, foot, 3 or more view No observ ation record ed. [email or web address] [facility] [place] [address], [place], [address], 09/29/2022 14:05:17 09/30/19 23 XR, foot, 3 or more view No observ ation record ed. [email or web address] [facility] [place] [address], [place], [address], 09/29/2022 14:06:17 Result Notes None recorded. Problems Name Problem SNOMED Code Status Onset Date Resolution Date Notes Provider Name and Address Organization Details Recorded Time Atypical chest pain 361785671 Active Not Available [facility] 3 07:31:56 Increased frequency of urination 395721060 Active Not Available [facility] 3 07:31:57 Urinary incontinen ce 732709838 Active Not Available [facility] 3 07:31:57 Abdominal pain 18765514 Active Not Available [facility] 3 07:31:57 Gastroesop hageal reflux disease 128475575 Active Not Available [facility] 3 07:31:57 Flank pain 646961178 Active Not Available [facility] 3 07:31:57 Edema 264756635 Active Not Available [facility] 3 07:31:57 Anemia 606846441 Active Not Available [facility] 3 07:31:57 Type 2 diabetes mellitus without complicati on 016150447 Active Not Available [facility] 3 07:31:57 Depressive disorder 44843700 Active Not Available [facility] 3 07:31:57 Atrophic vaginitis 84698723 Active Not Available [facility] 3 07:31:57 Alopecia 19303830 Active Not Available [facility] 3 07:31:57 Essential hypertensi on 41706376 Active Not Available [facility] 3 07:31:57 Dyspareuni a 24377347 Active Not Available [facility] 3 07:31:58 Retinal tear 16495768 Active Not Available [facility] 3 07:31:58 Seasonal allergy 536236676 Active 2022 Maria M Jung null, [place] [facility] 3 16:19:46 Anxiety 77776548 Active 2022 Maria M Jugn null, [place] [facility] 3 16:19:56 Arthritis 6355759 Active 2022 Maria M Jung null, [place] [facility] 3 16:20:03 Bowel problem 449638221 Active 2022 Maria M Jung null, [place] [facility] 3 16:20:18 Excessive sweating 40295747 Active 2022 Maria M Jung null, [place] [facility] 3 16:20:36 Disorder of eye 331730338 Active 2022 Maria M Jung null, [place] [facility] 3 16:20:47 Injury of head 09105800 Active 2022 Maria M Jung null, [place] [facility] 3 16:20:57 Heartburn 18721721 Active 2022 Maria M Jung null, [place] [facility] 3 16:21:06 Migraine 08146468 Active 2022 Maria M Jung null, [place] [facility] 3 16:21:40 Obesity 379420677 Active 2022 Maria M Jung null, [place] [facility] 3 16:21:47 Sleep disorder 27472060 Active 2022 Maria M Jung null, [place] [facility] 3 16:21:56 Bunion 492474549 Active 2022 Pk Laura, [place] [address] [facility] [place] [address], [place], [address] , [place] [facility] [place] [facility] 3 14:03:00 Hammer toe 170876821 Active 2022 Pk Laura DPM [address], [place], [address] , [facility] [employer] [facility] 3 14:03:17 Bunion 337492969 Active 2022 Pk Laura DPM [address], [place], [address] , [facility] [employer] [facility] 3 14:03:41 Acquired pes planus of left foot 0421917767565 08 Active 2022 Pk Laura DPM [address] [facility] [address], [place], [address] , [facility] [employer] [facility] 3 14:03:45 Notes:BACK/NECK PROBLEM, FEM KAMERON PROBLEMS/INFCTIONS, URINARY/BLADDER/KIDNEY PROBLEMS Problem Notes None recorded. Procedures Surgical History Date Name Laterality Status Provider Name and Address Organization Details Recorded Time section completed Maria M [employer] [facility] [employer] [facility] 09/27/2022 16:29:04 section completed Maria M [employer] [facility] [employer] [facility] 09/27/2022 16:29:05 Hysterectomy completed Maria M Jung [facility] [employer] [facility] 09/27/2022 16:29:31 Imaging Results None recorded. Procedure Notes None recorded. Medical Equipment None Reported. Allergies Allergen ID Allergen Name Allergen Category Reaction Reaction Severity Criticality Documentation Date Start Date Code Code System Note Provider Name and Address Organization Details Recorded Time 54649 Substance with sulfonami de structure and antibacte rial mechanism of action (substanc e) medicatio n Not available Not available Not available 06/16/2022 10547 8003 SNOMED Not Available [employer] 07:37:13 Medications Name Sig Start Date Stop Date Status Note LastModified by Organization Details LastModified Time cyclobenzap rine 10 mg tablet Take 1 tablet 3 times a day by oral route as needed. active Not Available Not Available No t Available latanoprost 0.005 % eye drops INSTILL 1 DROP INTO BOTH EYES EVERY NIGHT AT BEDTIME active Not Available Not Available No t Available metformin 500 mg tablet Take 2 tablets every day by oral route in the morning for 90 days. 09/27 completed Not Available Not Available Not Available trazodone 50 mg tablet TAKE 1/2 TO 1 TABLET BY MOUTH DAILY AT NIGHT 09/27 completed Not Available Not Available Not Available atorvastati n 10 mg tablet TAKE 1 TABLET BY MOUTH EVERY DAY active Not Available Not Available No t Available azithromyci n 250 mg tablet TAKE 2 TABLETS (500 MG) BY ORAL ROUTE ONCE DAILY FOR 1 DAY THEN 1 TABLET (250 MG) BY ORAL ROUTE ONCE DAILY FOR 4 DAYS active Not Available Not Available No t Available ampicillin 500 mg capsule TAKE 1 CAPSULE BY MOUTH THREE TIMES DAILY 09/27 completed Not Available Not Available Not Available doxepin 25 mg capsule active Not Available Not Available N ot Available hydrocodone 5 mg-acetamin ophen 325 mg tablet active Not Available Not Available No t Available sucralfate 1 gram tablet active Not Available Not Available Not Available lisinopril 20 mg tablet Take 1 tablet every day by oral route for 90 days. 09/27 completed Not Available Not Available Not Available alendronate 70 mg tablet TAKE 1 TABLET BY MOUTH 1 TIME EVERY WEEK 09/27 completed Not Available Not Available Not Available permethrin 5 % topical cream active Not Available Not Available Not Available Diflucan 150 mg tablet Take 1 tablet by oral route for 1 day. 12/16 completed Not Available Not Available Not Available doxepin 10 mg capsule active Not Available Not Available N ot Available omeprazole 40 mg capsule,del ayed release TAKE 1 CAPSULE BY MOUTH EVERY DAY active Not Available Not Available No t Available triamcinolo ne acetonide 0.1 % topical cream active Not Available Not Available Not Available prednisolon e acetate 1 % eye drops,suspe nsion 09/27 completed Not Available Not Available Not Available trazodone 100 mg tablet TAKE 1 TABLET BY MOUTH DAILY AT NIGHT 09/27 completed Not Available Not Available Not Available ciprofloxac in 0.3 % eye drops 09/27 completed Not Available Not Available Not Available OneTouch Ultra Test strips Take 1 strip twice a day by miscell. route. 09/27 completed Not Available Not Available Not Available benzonatate 100 mg capsule TAKE 1 CAPSULE BY MOUTH THREE TIMES DAILY NEEDED FOR COUGH 09/27 completed Not Available Not Available Not Available cephalexin 500 mg capsule TAKE 1 CAPSULE BY MOUTH EVERY 12 HOURS FOR 7 DAYS 09/27 completed Not Available Not Available Not Available metformin 1,000 mg tablet TAKE 1 TABLET BY MOUTH TWICE DAILY active Not Available Not Available No t Available Cipro 500 mg tablet Take 1 tablet every 12 hours by oral route as directed for 7 days. 12/31 completed Not Available Not Available Not Available bumetanide 0.5 mg tablet Take 1 tablet twice a day by oral route in the morning for 30 days. active Not Available Not Available No t Available brimonidine 0.2 % eye drops INSTILL 1 DROP INTO BOTH EYES TWICE DAILY. THIS DROP ALONG WITH TIMOLOL active Not Available Not Available No t Available bumetanide 1 mg tablet take one half tablet twice daily active Not Available Not Available No t Available montelukast 10 mg tablet take 1 po qd active Not Available Not Available No t Available hydrochloro thiazide 25 mg tablet Take 1 tablet every day by oral route for 90 days. active Not Available Not Available No t Available furosemide 20 mg tablet Take 1 tablet every day by oral route for 30 days. active Not Available Not Available No t Available clobetasol 0.05 % topical ointment APPLY TOPICALLY TO THE AFFECTED AREA TWICE DAILY FOR 2 WEEKS. CONTINUE USING AT LEAST 1-2 TIME WEEKLY THEREAFTE R active Not Available Not Available No t Available lisinopril 10 mg-hydrochl orothiazide 12.5 mg tablet TAKE 1/2 TABLET BY MOUTH EVERY DAY active Not Available Not Available No t Available estradiol 0.01% (0.1 mg/gram) vaginal cream active Not Available Not Available Not Available methylpredn isolone 4 mg tablets in a dose pack Take by oral route. active Not Available Not Available No t Available timolol maleate 0.5 % eye drops INSTILL 1 DROP INTO BOTH EYES TWICE DAILY. THIS DROP ALONG WITH BRIMONIDI NE active Not Available Not Available No t Available hydroxyzine HCl 10 mg tablet active Not Available Not Available Not Available fluticasone propionate 50 mcg/actuati on nasal spray,suspe nsion Inhale 2 sprays every day by intranasa l route. 09/27 completed Not Available Not Available Not Available naproxen 500 mg tablet TAKE 1 TABLET BY MOUTH TWICE DAILY WITH FOOD 09/27 completed Not Available Not Available Not Available amoxicillin 500 mg-potassiu m clavulanate 125 mg tablet TAKE 1 TABLET BY MOUTH TWICE DAILY active Not Available Not Available No t Available bupropion HCl XL 300 mg 24 hr tablet, extended release TAKE 1 TABLET BY MOUTH EVERY DAY active Not Available Not Available No t Available biotin 09/27 completed Not Available Not Available Not Available Sudafed OTC 09/27 completed Not Available Not Available Not Available vitamin F43-pynnl acid 2015 active Not Available Not Available Not Avai lable Combigan 0.2 %-0.5 % eye drops 09/27 completed Not Available Not Available Not Available Novofine 32 32 gauge x 1/4 needle USE ONE NEEDLE DIRECTED THREE TIMES A DAY NEEDED 09/27 completed Not Available Not Available Not Available OneTouch Delica Lancets 33 gauge 09/27 completed Not Available Not Available Not Available Lumigan 0.01 % eye drops 09/27 completed Not Available Not Available Not Available [facility] OT 2014 active Not Available Not Available Not Avai lable Levemir FlexTouch U-100 Insulin 100 unit/mL (3 mL) subcutaneou s pen INJECT 18 UNITS UNDER THE SKIN TWO TIMES A DAY DIRECTED 09/27 completed Not Available Not Available Not Available Jardiance 25 mg tablet TAKE 1 TABLET BY MOUTH EVERY DAY active Not Available Not Available No t Available Vitals Date Recorded Body height Body mass index (BMI) Body weight Provider Name and Address Organization Details Last Updated DateTime 09/27/2022 165.1 cm 33.3 kg/m2 53051.47 g Maria M Jung [employer] 09/27/2022 16:16:00 Date Recorded Heart rate Respiratory rate Oxygen saturation Oxygen saturation in Arterial blood by Pulse oximetry Systolic blood pressure Diastolic blood pressure Provider Name and Address Organization Details Last Updated DateTime 71 /min 14 /min 98 % 98 % 147 mm[Hg] 72 mm[Hg] Sameera Perales [employer] [facility] 16:25:49 Social History None recorded. Functional Status Question Answer Note LastModified by Organizat ion Details LastModified Time What is your level of alcohol consumption? Occasional [email or web address] Information not available 09/27/2022 Mental Status None recorded. Family History Relationship Description Onset Age of this Age Resolved Age Notes LastModified by Organization Details LastModified Time Father Heart disease [email or web address] Not available 2022 16:23:20 Notes:MOTHER OF CIRROSI S OF LIVER IN 60'S Medical History Condition Response ALLERGIES/HAYFEVER Y HIGH CHOLESTEROL / HYPERLIPIDEMIA Y BOWEL PROBLEMS Y BACK / NECK PROBLEMS Y OBESITY Y URINARY/BLADDER/KIDNEY PROBLEMS Y ARTHRITIS Y DIABETES, TYPE Y HEARTBURN / REFLUX Y HEADACHES/MIGRAINES Y HYPERTENSION Y ANXIETY DISORDER Y Gynecological HistoryNo gynecological history recorded. Obstetrics History GPAL:G 0 P 0 0 0 0 Past Encounters Encounter ID Performer Location Encounter Start Date Encounter Closed Date Diagnosis/Indication Diagnosis SNOMED-CT Code Diagnosis ICD10 Code Diagnosis Note [id number] Pk Laura DPM [facility] [place] [address] [place] [address] 09/27/2022 16:10:22 09/30/2022 09:22:08 Bunion 141871631 M21.619 reviewed treatment options in detail patient defers surgeryCon tinue conservati ve therapy reviewed conservati ve options including sleeves, wide shoe gear, extra-dept h shoesx-ray s reviewed with the patientFol low-up as needed Hammer toe 453941535 M20 .41 M20.42 reviewed treatment options in detail patient defers surgeryCon tinue conservati ve therapy reviewed conservati ve options including sleeves, wide shoe gear, extra-dept h shoesFollo w-up as needed Acquired p es planus of left foot 7708312098 98699 M21.42 recommend orthotics over-the-c ounter, power step pro toe Health Concerns Section Related Observation LastModified by Organization Detai ls LastModified Time None Recorded Concern Status LastModified by Organization Details LastModified Time None Recorded Advance Directives Directive None Recorded Payers Insurance Date Sequence Insurance Name Policy Number Policy Escalera Covered Member ID Escalera Member ID Guarantor Name 09/27/2022 1 [facility] (PPO) [place] [id number] [place] 09/30/2022 1 [facility] (MEDICARE REPLACEMENT/A DVANTAGE - PPO) [id number] [place] [id number] Kryspee Ramirez Umesh Notes Date Note Type Note Provider Name and Address Organization Details Recorded Time 09/27/2022 text/html . Patient is a 67-year-old female who presents the office with complaints of bilateral foot pain. Patient states that she has pain at both bunions and along her right dorsal 2nd and 3rd metatarsophalangeal joints. Patient states she has had no injury of the area. Patient denies any wounds or infection. Patient describes the pain as 10 10 when walking. Patient states that it is sudden onset that is intermittent sharp burning stabbing and shooting pains. Patient denies any other pedal complaints. Pk Laura DPM [address] [facility], [place], [address], [facility] Private Practice 09/29/2022 14:07:10 OBGyn Episode No OBEpisode recorded.
--- OUTSIDE RECORDS SUMMARY | 2024-10-16 20:11 | XMS_ITS | Clinical Summary ---
Author Organization [facility] Administrative Offices Address [address] [place] [address] Care Team Providers Care Securities Teller Name Role Phone Denny Crawley MD Primary Care Provider [phone] Encounters Date Type Department Care Team Description 09/05/2024 External Device Data ST[facility] ABSTRACTION Provider, Abstract 09/04/2024 External Device Data [facility] ABSTRACTION Provider, Abstract from Last 3 Months Social History Tobacco Use Types Packs/Day Years Used Date Smoking Tobacco: Never Assessed Comments Unknown Sex and Gender Information Value Date Recorded Sex Assigned at Not on file 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 Gender Identity Not on file Sexual Orientation Not on file Plan of Treatment Health Maintenance Due Date Last Done Comments DIABETES ANNUAL FOOT EXAM 1974 DIABETES HBA1C Q 6 MONTHS 1974 DIABETES MICROALBUMIN ANNUAL SCREEN 1974 LDL CHOLESTEROL ANNUAL 1974 PNEUMOCOCCAL VACCINE 50+ YEA RS (1 of 2 - PCV) 07/26/1975 COLORECTAL SCREENING 2001 Colorectal Cancer Screening 2001 FIT-DNA Q 3 years 2001 FIT/FOBT Q 1 year 2001 Flex Sig/CT Colonography Q 5 years 2001 ZOSTER VACCINE (1 of 2) 2006 OSTEOPOROSIS SCREENING 2021 DIABETES ANNUAL RETINAL EXAM 09/09/2022, 02/18/2021, 01/07/2021 INFLUENZA VACCINE (#1) 2023 01/03/2020 BREAST CANCER SCREENING 06/19/2025 06/20/19, 05/10/2023, 05/04/2022, Additional history exists DTAP/TDAP/TD VACCINES (2 - T d or Tdap) 12/20/2030 12/20/2020 RSV VACCINE (60+ or ) (1 - 1-dose 75+ series) 07/26/2031 Procedures Procedure Name Priority Date/Time Associated Diagnosis Comments MAMMO 3D SOLITARIO SCREEN BILAT W OR WO CAD Routine 06/19/2024 1:06 PM SCROLL SAW OPERATOR Visit for screening mammogram from Last 3 Months or Most Recently Relevant to Health Maintenance Results * MAMMO 3D SOLITARIO SCREEN BILAT W OR WO CAD (06/19/2024 1:06 PM SCROLL SAW OPERATOR) Anatomical Region Laterality Modality Breast Bilateral Mammography 06/19/2024 1:06 PM SCROLL SAW OPERATOR Impressions 06/19/2024 1:42 PM SCROLL SAW OPERATOR IMPRESSION: No mammographic evidence of malignancy. RECOMMENDATIONS: Routine screening mammogram in one year. DICTATION LOCATION: [facility], [place] Narrative 06/19/2024 1:42 PM SCROLL SAW OPERATOR MAMMO 3D SOLITARIO SCREEN BILAT W OR WO CAD DATE: 06/19/2024 1:06 PM HISTORY: Routine screening. TECHNIQUE: Full-field digital craniocaudal and mediolateral oblique projections of both breasts were obtained. Low-dose full-field digital breast tomosynthesis examination was performed with 3D acquisitions. Examination is read in conjunction with computer aided detection. COMPARISON: Mammograms dating back to 2019 BREAST COMPOSITION: The breasts are heterogeneously dense, which may obscure small masses. FINDINGS: No suspicious mass, suspicious microcalcifications, or architectural distortion in either breast is identified. Since the prior study, there has been no significant interval change. The computer aided diagnosis detects no significant abnormality. OVERALL FINAL ASSESSMENT: BI-RADS CATEGORY 1 : Negative Denny Crawley MD MAMMO ORDERABLES Final Result from Last 3 Months or Most Recently Relevant to Health Maintenance Insurance [facility] DUAL COMPLETE PPO DSNP [facility] [id number] Care Teams Securities Teller Relationship Specialty Start Date End Date Denny Crawley MD PCP - General Internal Medicine 04/24/21
--- NOTE | 2024-10-16 22:17 | PC.NURSE ---
Pt. states she has no nausea. Given a warm blanket. Requesting B.S. be checked. Brought into triage room for B.S. check and V.S.
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
--- OUTSIDE RECORDS SUMMARY | 2024-10-16 23:38 | XMS_ITS | Encounter Summary ---
Author Organization [facility] Healthcare Address [address] [place] [address] Care Team Providers Care Boiling House Oiler Name Role Phone Denny Crawley MD Primary Care Provider [phone] Jose Hale MD Unavailable + Encounter Details Date Type Department Care Team (Latest Contact Info) Description 12/20/2020 Ophth Exam Ophthalmology Arash Moon MD PhD [address] [facility] [address] [facility] [place] [phone] [place], [place] [id number] Social History Tobacco Use Types Packs/Day Years Used Date Smoking Tobacco: Never Smokeless Tobacco: Never Alcohol Use Standard Drinks/Week Comments No 0 (1 standard drink = 0.6 oz pur e alcohol) PHQ-2 Answer Date Recorded PHQ-2 Score 0 06/22/2018 Comments Unknown Sex and Gender Information Value Date Recorded Sex Assigned at Not on file 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 [employer] Gender Identity Not on file Sexual Orientation Not on file 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 file Not on file documented as of this encounter Plan of Treatment Not on file documented as of this encounter Visit Diagnoses Not on filedocumented in this encounter Eye Exam Visual Acuity (Numbers - Linear) Right eye Left eye Near sc 20/20 20/50 ph 20/30-2 Correction: Glasses Tonometry (Tonopen, 8:13 PM) Right eye Left eye Pressure 18 18 Pupils Dark Light Shape React APD Right eye 3 2 Round Brisk None Left eye 3 2 Round Brisk None Visual Nair Right eye Left eye Full Full Extraocular Movement Right eye Left eye Full Full Dilation Both eyes: 1.0% Mydriacyl, 2 .5% Phenylephrine @ 10:32 PM External Exam Right eye Left eye External several facial lacerations sever al facial lacerations Slit Lamp Exam Right eye Left eye Lids/Lashes Normal Normal Conjunctiva/Sclera White and quiet, no staining White and quiet, no staining Cornea Clear, no staining Clear, no sta ining Anterior Chamber Deep and quiet, no hyphema Deep and quiet, no hyphema Iris Round and reactive Round and kate ctive Lens PCIOL no lens nor IOL present Vitreous Normal, no Kecia's sign no Shaf er's sign, s/p vitrectomy Fundus Exam Right eye Left eye Disc large area of PPA, no disc edema large area of PPA, no disc edema. displaced 3-piece IOL overlying nerve head and posterior pole C/D Ratio 0.5 0.5 Macula Normal Normal Vessels Normal Normal Periphery Normal, DOPER OPERATOR with no RT/RDs. No h gideon Normal, DOPER OPERATOR with no RT/RDs. No heme Care Teams Boiling House Oiler Relationship Specialty Start Date End Date Denny Crawley MD [address] [address] PCP - General Internal Medicine 06/14/17 Jose Hale MD [address] [address] Orthopedic Surgery 12/30/20 documented as of this encounter
--- OUTSIDE RECORDS SUMMARY | 2024-10-16 23:38 | XMS_ITS | Clinical Summary ---
Author Organization [facility] Administrative Offices Address [address] [place] [id number] Care Team Providers Care Logistician Name Role Phone Denny Crawley MD Primary Care Provider [phone] Encounters Date Type Department Care Team Description 09/05/2024 External Device Data [facility] ABSTRACTION Provider, Abstract 09/04/2024 External Device Data [facility] ABSTRACTION Provider, Abstract from Last 3 Months Social History Tobacco Use Types Packs/Day Years Used Date Smoking Tobacco: Never Assessed Comments Unknown Sex and Gender Information Value Date Recorded Sex Assigned at Not on file Legal Sex Female 2:52 PM AUDIO VISUAL DIRECTOR Gender Identity Not on file Sexual Orientation [...] OR WO CAD Routine 06/19/2024 1:06 PM AUDIO VISUAL DIRECTOR Visit for screening mammogram from Last 3 Months or Most Recently Relevant to Health Maintenance Results * MAMMO 3D SOLITARIO SCREEN BILAT W OR WO CAD (06/19/2024 1:06 PM AUDIO VISUAL DIRECTOR) Anatomical Region Laterality Modality Breast Bilateral Mammography 06/19/2024 1:06 PM AUDIO VISUAL DIRECTOR Impressions 06/19/2024 1:42 PM AUDIO VISUAL DIRECTOR IMPRESSION: No mammographic evidence of malignancy. RECOMMENDATIONS: Routine screening mammogram in one year. DICTATION LOCATION: [facility] Narrative 06/19/2024 1:42 PM AUDIO VISUAL DIRECTOR MAMMO 3D SOLITARIO SCREEN BILAT W OR [...] Most Recently Relevant to Health Maintenance Insurance [facility] [employer] PPO DSNP [facility] [id number] Care Teams Logistician Relationship Specialty Start Date End Date Denny Crawley MD PCP - General Internal Medicine 04/24/21
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
[2024-10-16] MEDS: ACETAMINOPHEN 500 MG TABLET 1000 MG PO (23:53)
[2024-10-17] VITALS (49 sets, daily range): BP systolic 135–215; BP diastolic 44–85; PULSE 63–108; RESP 9–24; TEMP 36.5; O2SAT 89–100
[2024-10-17 00:29] LABS: Hematocrit 45.6 % (37.0-47.0); Hemoglobin 14.7 g/dL (12.0-15.0); Immature Granulocyte Percent A 0.2 % (0-0.5); Lymphocytes Absolute Auto 1.94 K/mm3 (0.9-3.2); Mean Corpuscular HGB Conc 32.2 g/dl (32-36); Mean Corpuscular Hemoglobin 29.0 pg (26-34); Mean Corpuscular Volume 89.9 fl (80-100); Nucleated Red Blood Cells Absolute Auto 0.000 K/mm3 (0.0-0.012); Nucleated Red Blood Cells Perc 0.0 % (0.0-0.2); Platelet Count Result 240 k/mm3 (150-375); Red Blood Count 5.07 M/mm3 (4.2-5.4); White Blood Count 12.2 K/mm3 (4.5-10.0)
[2024-10-17 00:42] LABS: Alanine Aminotransferase 33 U/L (6-35); Albumin Level 4.4 g/dL (3.5-5.1); Alkaline Phosphatase 132 U/L (38-126); Anion Gap 9 mmol/L (4-12); Aspartate Amino Transferase 33 U/L (14-36); Bilirubin,Total 0.7 mg/dL (0.2-1.3); Blood Urea Nitrogen 18 mg/dL (7-17); Calcium 10.3 mg/dL (8.4-10.2); Carbon Dioxide 22 mmol/L (22-30); Chloride 102 mmol/L (98-107); Estimated CRCL calculation 65 ml/min; Estimated Glomerular Filt Rate > 60; Glucose 183 mg/dL (65-110); Magnesium 1.6 mg/dL (1.6-2.3); Potassium 4.4 mmol/L (3.4-5.0); Sodium 133 mmol/L (137-145); Total Protein 8.5 g/dL (6.3-8.2)
[2024-10-17 01:25] LABS: Add Urine Microscopic? YES; Appearance Urine Clear (Clear); Glucose Urine UA Negative (Negative); Leukocyte Esterase Ur Negative LEU/UL (Negative); Nitrate Urine Negative (Negative); Non Pathogenic Casts 0-2; Specific Grav Ur 1.015 (1.001-1.035)
[2024-10-17] MEDS: HYDROmorphone HCL INJ (*CRX) 2 MG/ML VIAL 0.5 MG IV PUSH (01:50)
[2024-10-17] MEDS: KETOROLAC 15 MG/ML VIAL (*BKC) IV PUSH (03:38)
[2024-10-17] MEDS: PROCHLORPERAZINE EDISYLATE 10 MG/2 ML VIAL 5 MG IV PUSH (03:38)
[2024-10-17] MEDS: SODIUM CHLORIDE 0.9% IV 500 ML 999 ML IV CONT (03:38)
[2024-10-17] MEDS: SODIUM CHLORIDE 0.9% IV 200 ML (03:39)
--- NOTE | 2024-10-17 06:15 | PC.NURSE ---
pt attempting to get ahold of family to find a ride home.
== END 2024-10-17 06:44 | disposition home or self-care (01) ==
PROVIDERS: Emergency Provider Student in an Organized Health Care Education/Training Program
DX: R51.9 Headache, unspecified (principal); R19.7 Diarrhea, unspecified; R80.9 Proteinuria, unspecified; D72.829 Elevated white blood cell count, unspecified; E11.39 Type 2 diabetes mellitus with other diabetic ophthalmic complication; H42 Glaucoma in diseases classified elsewhere; H40.9 Unspecified glaucoma; E78.00 Pure hypercholesterolemia, unspecified; I10 Essential (primary) hypertension; F32.A Depression, unspecified; Z79.84 Long term (current) use of oral hypoglycemic drugs; Z79.899 Other long term (current) drug therapy
CPT/HCPCS: 36415; 70496; 70498; 80053; 81001; 82948; 83735; 85025; 96374; 96375; 99284; A9270; J0780; J1171; J1200; J1885; J7040; Q9967

== ENCOUNTER 2024-10-20 19:37 | Emergency (ER) | payer MEDICARE, SELFPAY ==
[2024-10-20] VITALS (40 sets, daily range): BP systolic 119–233; BP diastolic 55–94; PULSE 65–78; RESP 10–30; TEMP 36.4; O2SAT 94–100
--- NOTE | ~2024-10-20 | XR_ITS ---
EXAMINATION: XR chest 1V portable Exam Date/Time: 10/20/2024 20:31 CDT HISTORY: neuro symptoms . Comparison: None. RESULT: Lines, tubes, and devices: None. Lungs and pleura: Low volumes with crowding. Diffuse reticular opacities. Cardiomediastinal silhouette: Stable. Other: No acute osseous or upper abdominal finding. IMPRESSION: Mild interstitial edema. Reviewed, dictated and finalized at location K. IMPRESSION: Mild interstitial edema.
--- NOTE | ~2024-10-20 | CT_ITS ---
EXAMINATION: CT brain wo con DATE: 10/20/2024 20:03 INDICATION: neuro symptoms . TECHNIQUE: Computed tomography (CT) of the head was performed without intravenous contrast. The mA wa s adjusted according to patient size. Iterative reconstruction technique was employed. The dose-lengt h product was 681.00 mGy-cm. COMPARISON: CTA brain carotid 10/17/2024. FINDINGS: No acute intracranial hemorrhage or extra-axial fluid collection. No hydrocephalus, mass, or herniation. No acute ischemic infarct. Unremarkable dural venous sinus attenuation. No acute osseous abnormality. Mild bilateral maxillary sinus mucosal thickening, the remaining aerated spaces are clear. Mild atrophy and chronic white matter change. Atherosclerotic intracranial calcification. Bilateral l ens replacements. 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 IMPRESSION: No acute intracranial process. Results reported telephonically to Dr. Beltran by Dr. Nick at 8:07 PM on 10/20/2024. Reviewed, dictated and finalized at location K.
--- NOTE | ~2024-10-20 | CT_ITS ---
EXAMINATION: CTA brain carotid DATE: 10/20/2024 20:14 INDICATION: CVA TECHNIQUE: Computed tomographic angiography (CTA) of the head and neck was performed with 100 mL Omni paque-350 intravenous contrast. Automated exposure control and iterative reconstruction technique wer e employed. The dose-length product was 1099.31 mGy-cm. Maximum intensity projection and volume rende red 3D-reconstructions were created by the technologist on a separate workstation. COMPARISON: CT brain, same date; CTA brain carotid 10/17/2024. FINDINGS: CTA HEAD: No large vessel occlusion, aneurysm, high flow vascular malformation, nidus or extravasation. CTA NECK: Aortic arch and proximal great vessels: Normal arch anatomy. Atherosclerotic calcifications at the vi sualized aortic arch and proximal great vessels. Calcified plaque at the origin of the subclavian art izaiah, with moderate stenosis. Right common carotid, carotid bifurcation, and internal carotid artery: Calcified atherosclerotic joycelyn que at the carotid bifurcation.There is 0% stenosis of the proximal right internal carotid artery rel ative to normal distal artery lumen diameter (NASCET criteria). Left common carotid, carotid bifurcation, and internal carotid artery: Calcified atherosclerotic plaq ue at the carotid bifurcation.There is 0% stenosis of the proximal left internal carotid artery relat tres to normal distal artery lumen diameter (NASCET criteria). Vertebral arteries: No significant plaque or stenosis. Vertebral arteries co-dominant. Other findings: Degenerative changes in the cervical spine.. IMPRESSION: No large vessel intracranial occlusion, high-grade intracranial stenosis, or aneurysm. No carotid or vertebral artery occlusion, dissection, or significant stenosis. Reviewed, dictated and finalized at location K. IMPRESSION: No large vessel intracranial occlusion, high-grade intracranial stenosis, or an eurysm. No carotid or vertebral artery occlusion, dissection, or significant stenosis.
--- NOTE | 2024-10-20 19:39 | ECG_ITS ---
Test Date: 2024-10-20 20:20:00 Measurements Intervals [place] Rate: 76 P: 38 IA: 207 QRS: -39 QRSD: 85 T: 10 QT: 378 QTc: 425 Interpretive Statements SINUS RHYTHM LEFT AXIS DEVIATION [QRS AXIS < -30] PATTERN CONSISTENT WITH PULMONARY DISEASE VOLTAGE CRITERIA FOR LVH [MEETS CRITERIA IN ONE OF: R(aVL), S(V1), R(V5), R(V5/V6)+S(V1)] No previous ECG available for comparison Electronically Signed On 10-21-2024 13:41:40 CDT by Gavin Bradley M.D.
--- OUTSIDE RECORDS SUMMARY | 2024-10-20 19:40 | XMS_ITS | Clinical Summary ---
Author Organization [facility] Administrative Offices Address [address] [place] [id number] Care Team Providers Care Laborer [employer] Name Role Phone Denny Crawley MD Primary Care Provider [phone] Encounters Date Type Department Care Team Description 09/05/2024 External Device Data [facility] ABSTRACTION Provider, Abstract 09/04/2024 External Device Data [facility] ABSTRACTION Provider, Abstract from Last 3 Months Social History Tobacco Use Types Packs/Day Years Used Date Smoking Tobacco: Never Assessed Comments Unknown Sex and Gender Information Value Date Recorded Sex Assigned at Not on file Legal Sex Female 2:52 PM TELEGRAPHIC INSTRUMENT SUPERVISOR Gender Identity Not on file Sexual Orientation [...] EXAM 09/09/2022, 02/18/2021, 01/07/2021 INFLUENZA VACCINE (#1) 2024 01/03/2020 BREAST CANCER SCREENING 06/19/2025 06/20/19, 05/10/2023, 05/04/2022, Additional history exists DTAP/TDAP/TD VACCINES (2 - T d or Tdap) 12/20/2030 12/20/2020 RSV VACCINE (60+ or ) (1 - 1-dose 75+ series) 07/26/2031 Procedures Procedure Name Priority Date/Time Associated Diagnosis Comments MAMMO 3D SOLITARIO SCREEN BILAT W OR WO CAD Routine 06/19/2024 1:06 PM TELEGRAPHIC INSTRUMENT SUPERVISOR Visit for screening mammogram from Last 3 Months or Most Recently Relevant to Health Maintenance Results * MAMMO 3D SOLITARIO SCREEN BILAT W OR WO CAD (06/19/2024 1:06 PM TELEGRAPHIC INSTRUMENT SUPERVISOR) Anatomical Region Laterality Modality Breast Bilateral Mammography 06/19/2024 1:06 PM TELEGRAPHIC INSTRUMENT SUPERVISOR Impressions 06/19/2024 1:42 PM TELEGRAPHIC INSTRUMENT SUPERVISOR IMPRESSION: No mammographic evidence of malignancy. RECOMMENDATIONS: Routine screening mammogram in one year. DICTATION LOCATION: [facility] Narrative 06/19/2024 1:42 PM TELEGRAPHIC INSTRUMENT SUPERVISOR MAMMO 3D SOLITARIO SCREEN BILAT W OR [...] Most Recently Relevant to Health Maintenance Insurance [facility] DUAL COMPLETE PPO DSNP [facility] [id number] Care Teams Laborer [employer] Relationship Specialty Start Date End Date Denny Crawley MD PCP - General Internal Medicine 04/24/21
--- OUTSIDE RECORDS SUMMARY | 2024-10-20 19:40 | XMS_ITS | Data Portability ---
Author Organization [place] [facility], Main Office Address [address] [place] [address] Care Team Providers Care Train Reservation Clerk Name Role Phone MIMADEANDREH Primary Care Provider [phone] Assessment Encounter Date Assessment Date Assessment LastModified by Organization Details LastModified Time 09/27/2022 09/27/2022 This note is dictated and transcribed by [employer]. Rectifying Attendant variances may occur. Despite proofreading, typographical errors may occur. [email or web address] Not available 09/29/2022 14:02:55 Plan of Treatment Reminders Order Date Submit Date Provider Last Modified By Organization Details Last Modified Time Details Appointments None record ed. Lab None record ed. Referral None record ed. Procedures None record ed. Surgeries None record ed. Imaging XR, foot, 3 or more view 023 09/30/19 23 [email or web address] [facility] [place], [address], [place], [address], 3 14:06:15 XR, foot, 3 or more view 023 09/30/19 23 [email or web address] [facility] [place], [address], [place], [address], 3 14:06:15 Medication Orders None record ed. Patient TargetsNo targets recorded. Patient InstructionsNo instructions recorded. Reason for Referral None Reported. Results Created Date Observation Date Name Description Value Unit Range Abnormal Flag Note LastModifiedBy Organization Detail LastModifiedTime 06/14/20 23 XR, foot, 3 or more view No observ ation record ed. [email or web address] [facility] [place] [address], [place], [address], 09/29/2022 14:05:17 09/30/19 23 XR, foot, 3 or more view No observ ation record ed. [email or web address] [facility] [place] [address], [place], [address], 09/29/2022 14:06:17 Result Notes None recorded. Problems Name Problem SNOMED Code Status Onset Date Resolution Date Notes Provider Name and Address Organization Details Recorded Time Atypical chest pain 541703074 Active Not Available [facility] 3 07:31:56 Increased frequency of urination 247469693 Active Not Available [facility] 3 07:31:57 Urinary incontinen ce 916820931 Active Not Available [facility] 3 07:31:57 Abdominal pain 13652805 Active Not Available [facility] 3 07:31:57 Gastroesop hageal reflux disease 784902727 Active Not Available [facility] 3 07:31:57 Flank pain 801105238 Active Not Available [facility] 3 07:31:57 Edema 739722484 Active Not Available [facility] 3 07:31:57 Anemia 798564317 Active Not Available [facility] 3 07:31:57 Type 2 diabetes mellitus without complicati on 882792791 Active Not Available [facility] 3 07:31:57 Depressive disorder 95007109 Active Not Available [facility] 3 07:31:57 Atrophic vaginitis 66247972 Active Not Available [facility] 3 07:31:57 Alopecia 88491442 Active Not Available [facility] 3 07:31:57 Essential hypertensi on 53950860 Active Not Available [facility] 3 07:31:57 Dyspareuni a 62701459 Active Not Available [facility] 3 07:31:58 Retinal tear 90170839 Active Not Available [facility] 3 07:31:58 Seasonal allergy 682287849 Active 2022 Maria M Jung null, [place] [facility] 3 16:19:46 Anxiety 14871697 Active 2022 Maria M Jung null, [place] [facility] 3 16:19:56 Arthritis 3691278 Active 2022 Maria M Jung null, [place] [facility] 3 16:20:03 Bowel problem 978817315 Active 2022 Maria M Jung null, [place] [facility] 3 16:20:18 Excessive sweating 93893368 Active 2022 Maria M Jung null, [place] [facility] 3 16:20:36 Disorder of eye 647678403 Active 2022 Maria M Jung null, [place] [facility] 3 16:20:47 Injury of head 21449549 Active 2022 Maria M Jung null, [place] [facility] 3 16:20:57 Heartburn 91705725 Active 2022 Maria M Jung null, [place] [facility] 3 16:21:06 Migraine 93610603 Active 2022 Maria M Jung null, [place] [facility] 3 16:21:40 Obesity 935780981 Active 2022 Maria M Jung null, [place] [facility] 3 16:21:47 Sleep disorder 11732352 Active 2022 Maria M Jung null, [place] [facility] 3 16:21:56 Bunion 593418936 Active 2022 Pk Laura, YASSINE [address] [place] [address], [place], [address] , [place] [facility] [place] [facility] 3 14:03:00 Hammer toe 660810352 Active 2022 Pk Laura DPM [address], [place], [address] , [facility] [employer] [facility] 3 14:03:17 Bunion 552999442 Active 2022 Pk Laura DPM [address], [place], [address] , [facility] [employer] [facility] 3 14:03:41 Acquired pes planus of left foot 4232325822700 08 Active 2022 Pk Laura DPM [address] [facility] [facility] [address], [facility] [address], [place], [address] , [facility] [employer] [facility] 3 14:03:45 Notes:BACK/NECK PROBLEM, FEM KAMERON PROBLEMS/INFCTIONS, URINARY/BLADDER/KIDNEY PROBLEMS Problem Notes None recorded. Procedures Surgical History Date Name Laterality Status Provider Name and Address Organization Details Recorded Time section completed Maria M JDLab [facility] [employer] [facility] 09/27/2022 16:29:04 section completed Maria M JDLab [facility] [employer] [facility] 09/27/2022 16:29:05 Hysterectomy completed Maria M Jung [facility] [employer] [facility] 09/27/2022 16:29:31 Imaging Results None recorded. Procedure Notes None recorded. Medical Equipment None Reported. Allergies Allergen ID Allergen Name Allergen Category Reaction Reaction Severity Criticality Documentation Date Start Date Code Code System Note Provider Name and Address Organization Details Recorded Time 48938 Substance with sulfonami de structure and antibacte rial mechanism of action (substanc e) medicatio n Not available Not available Not available 06/16/2022 26232 8003 SNOMED Not Available [facility] 07:37:13 Medications [...] Not Available Not Available Not Available vitamin V10-myyuu acid 2015 active Not Available Not Available [...] Updated DateTime 09/27/2022 165.1 cm 33.3 kg/m2 99016.47 g Maria M Jung [facility] [employer] 09/27/2022 16:16:00 Date Recorded Heart rate Respiratory rate Oxygen saturation Oxygen saturation in Arterial blood by Pulse oximetry Systolic And Diastolic Provider Name and Address Organization Details Last Updated DateTime 3 71 /min 14 /min 98 % 98 % 147/72 mm[Hg] Sameera Perales [facility] [employer] [facility] 16:25:49 Social History None recorded. Functional Status [...] LIVER IN 60'S Medical History Condition Response ARTHRITIS Y HEADACHES/MIGRAINES Y OBESITY Y ANXIETY DISORDER Y DIABETES, TYPE Y ALLERGIES/HAYFEVER Y URINARY/BLADDER/KIDNEY PROBLEMS Y BOWEL PROBLEMS Y BACK / NECK PROBLEMS Y HEARTBURN / REFLUX Y HYPERTENSION Y HIGH CHOLESTEROL / HYPERLIPIDEMIA Y Gynecological HistoryNo gynecological history recorded. Obstetrics History GPAL:G 0 P 0 0 0 0 Past Encounters Encounter ID Performer Location Encounter Start Date Encounter Closed Date Diagnosis/Indication Diagnosis SNOMED-CT Code Diagnosis ICD10 Code Diagnosis Note [id number] Pk Laura DPM [facility] [place] [address] [place] [address] 09/27/2022 16:10:22 09/30/2022 09:22:08 Bunion 503974434 M21.619 reviewed treatment options in detail patient defers surgeryCon tinue conservati ve therapy reviewed conservati ve options including sleeves, wide shoe gear, extra-dept h shoesx-ray s reviewed with the patientFol low-up as needed Hammer toe 139011561 M20 .41 M20.42 reviewed treatment options in detail patient defers surgeryCon tinue conservati ve therapy reviewed conservati ve options including sleeves, wide shoe gear, extra-dept h shoesFollo w-up as needed Acquired p es planus of left foot 5880589591 72343 M21.42 recommend orthotics over-the-c ounter, power step pro toe Health Concerns Section Related Observation LastModified by Organization Detai ls LastModified Time None Recorded Concern Status LastModified by Organization Details LastModified Time None Recorded Advance Directives Directive None Recorded Payers Insurance Date Sequence Insurance Name Policy Number Policy Escalera Covered Member ID Escalera Member ID Guarantor Name 09/27/2022 1 [facility] (PPO) Maine Calvo [id number] Maine Calvo 09/30/2022 1 [facility] (MEDICARE REPLACEMENT/A DVANTAGE - PPO) [id number] Maine Calvo [id number] Maine Calvo Notes Date Note Type Note Provider Name [...] other pedal complaints. Pk Laura DPM [address], [place], [address], [facility] [employer] 09/29/2022 14:07:10 OBGyn Episode No OBEpisode recorded.
[2024-10-20 20:04] LABS: Hematocrit 38.3 % (37.0-47.0); Hemoglobin 12.7 g/dL (12.0-15.0); Immature Granulocyte Percent A 0.3 % (0-0.5); Lymphocytes Absolute Auto 3.10 K/mm3 (0.9-3.2); Mean Corpuscular HGB Conc 33.2 g/dl (32-36); Mean Corpuscular Hemoglobin 29.7 pg (26-34); Mean Corpuscular Volume 89.5 fl (80-100); Nucleated Red Blood Cells Absolute Auto 0.000 K/mm3 (0.0-0.012); Nucleated Red Blood Cells Perc 0.0 % (0.0-0.2); Platelet Count Result 198 k/mm3 (150-375); Red Blood Count 4.28 M/mm3 (4.2-5.4); White Blood Count 13.1 K/mm3 (4.5-10.0)
[2024-10-20 20:21] LABS: Alanine Aminotransferase 29 U/L (6-35); Albumin Level 3.8 g/dL (3.5-5.1); Alkaline Phosphatase 118 U/L (38-126); Anion Gap 8 mmol/L (4-12); Aspartate Amino Transferase 38 U/L (14-36); Bilirubin,Total 0.2 mg/dL (0.2-1.3); Blood Urea Nitrogen 15 mg/dL (7-17); Calcium 9.5 mg/dL (8.4-10.2); Carbon Dioxide 19 mmol/L (22-30); Chloride 106 mmol/L (98-107); Estimated CRCL calculation 62 ml/min; Estimated Glomerular Filt Rate > 60; Glucose 123 mg/dL (65-110); Potassium 4.4 mmol/L (3.4-5.0); Sodium 133 mmol/L (137-145); Total Protein 7.3 g/dL (6.3-8.2)
[2024-10-20 20:22] LABS: INR 0.9; Prothrombin Time 12.1 Seconds (11.1-14.7)
[2024-10-20 20:23] LABS: Partial Thromboplastin Time 28.2 Seconds (22.3-36.8)
[2024-10-20 20:27] LABS: Troponin I < 0.012 ng/mL (0.000-0.034)
--- NOTE | 2024-10-20 21:05 | PC.NURSE ---
Nicardipine drip verified by this RN and glass cut off supervisor.
--- OUTSIDE RECORDS SUMMARY | 2024-10-20 21:14 | XMS_ITS | Clinical Summary ---
Author Organization [facility] Address [address] [place] [address] Care Team Providers Care Vice President Consulting Services Name Role Phone Unavailable Primary Care Provider Unavailabl e Source Comments [facility],non-owned Affiliates and Associated Physician Practices is amultiple site organization consisting of ambulatory clinics and hospital sitesin [place], [place], [place] and [place]. This disclosure is being madepursuant to the Care Everywhere program and may not contain all information available regarding this patient. Last updated 18.[facility] Encounters Date Type Department Care Team Description 10/20/2024 8:51 PM CDT Emergency [facility] EMERGENCY DEPARTMENT [address] [place] [address] from Last 3 Months Social History Tobacco Use Types Packs/Day Years Used Date Smoking Tobacco: Never Assessed Comments Unknown Sex and Gender Information Value Date Recorded Sex Assigned at Not on file Legal Sex Female 4:47 AM CERTIFIED OPHTHALMIC ASSISTANT Gender Identity Not on file Sexual Orientation Not on file Plan of Treatment Health Maintenance Due Date Last Done Comments BONE DENSITY TESTING 1956 COLOGUARD (AGES 45-75) - COL ON CA SCREENING 1956 COLON MONITORING 1956 COLONOSCOPY - COLON CA SCREENING 1956 CT COLONOGRAPHY - COLON CA SCREENING 1956 Colorectal Cancer Screening 1956 FIT - COLON CA SCREENING 1956 FLEX SIG - COLON CA SCREENING 1956 LIPID TESTING 1956 MAMMOGRAM 1956 HEPATITIS C SCREENING 07/21/1974 DTAP/TDAP/TD VACCINES (1 - Tdap) 07/26/1975 PNEUMOCOCCAL VACCINE 50+ (1 of 1 - PCV) 2006 ZOSTER VACCINE (1 of 2) 2006 COVID-19 VACCINE ( - 2023-2 5 season) 2023 DEPRESSION SCREENING 04/18/2024 INFLUENZA VACCINE (Season Ended) 2024 Respiratory Syncytial Virus (RSV) Vaccine Pt: or over 60 yrs (1 - 1-dose 75+ series) 07/26/2031 HEPATITIS B VACCINE Aged Out No longe r eligible based on patient's age to complete this topic HIB VACCINE Aged Out No longer eligi ble based on patient's age to complete this topic HPV VACCINE Aged Out No longer eligi ble based on patient's age to complete this topic MENINGOCOCCAL (Group B) VACC INE SHARED DECISION-MAKING Aged Out No longer eligibl e based on patient's age to complete this topic MENINGOCOCCAL GROUPS A/C/Y/W VACCINE Aged Out No longer eligible b ased on patient's age to complete this topic
--- OUTSIDE RECORDS SUMMARY | 2024-10-20 21:14 | XMS_ITS | Referral Summary ---
Author Organization [facility] Physician Office Building [address] [place] [address] Care Team Providers Care Winemaker Name Role Phone Denny Crawley MD Primary Care Provider [phone] Jose Hale MD Unavailable + Allergies Active Allergy Reactions Criticality Noted Date Comments Ciprofloxacin Swelling Medium 06/22/2017 per [facility] Penicillin Swelling Medium 03/27/2021 per [facility] Sulfa (Sulfonamide Antibiotics) Swelling Medium 06/17 [...] cervical vertebra, unspecified fracture morphology, initial encounter ([facility]) Take 2 tablets (650 mg total) by [...] PRN. Assessment & Plan (05/13/2021 4:04 PM SWEEP PRESS OPERATOR): One month status post Procedure(s): EXCHANGE INTRAOCULAR [...] level Assessment & Plan (04/08/2021 2:41 PM SWEEP PRESS OPERATOR): One week status post Procedure(s): EXCHANGE INTRAOCULAR [...] level Assessment & Plan (04/03/2021 1:13 PM SWEEP PRESS OPERATOR): One day status post Procedure(s): EXCHANGE INTRAOCULAR [...] activity. 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 file Not on file Last Filed Vital Signs Vital Sign Reading Time Taken Comments Blood Pressure 141/66 04/02/2021 1:20 PM SWEEP PRESS OPERATOR Pulse 71 04/02/2021 1:20 PM SWEEP PRESS OPERATOR Temperature 36.2 C (97.2 F) 04/02/2021 12:35 PM SWEEP PRESS OPERATOR Respiratory Rate 21 04/02/2021 1:20 PM SWEEP PRESS OPERATOR Oxygen Saturation 98% 04/02/2021 1:20 PM SWEEP PRESS OPERATOR Inhaled Oxygen Concentration - - Weight 88.5 kg (195 lb) 04/02/2021 9:09 AM SWEEP PRESS OPERATOR Height 165.1 cm (5' 5) 04/02/2021 9:09 AM SWEEP PRESS OPERATOR Body Mass Index 32.45 04/02/2021 9:09 AM SWEEP PRESS OPERATOR Plan of Treatment Not on file Medical Devices Implanted Type Area Door Cutter Device Identifier Shelf Expiration Date Model / Serial / Lot Nic Surgical [id number] Kelman Multiflex Iii 5.5mm 13mm 1 Piece Uv Absorbent Anterior - [id number] - [id number] Implanted:Qty: 1 on 04/02/2021 by Ludwin Mcdaniel MD at [facility] Lens Left: Lens [employer] [id number] 04/17/2021 [id number] / [id number] / 0 Insurance [employer] [facility] PPO [facility] CHOICE PLUS [facility] ACCESS CHOICE Member Subscriber Plan / Payer (Ef fective 2020-Present) Name:Maine Calvo Relation to Subscriber:Self Name:Maine Calvo Payer ID:[id number] ([facility]) Group ID:Not on file Type:[employer] Address: [address] [employer] ACCESS CHOICE Member Subscriber Plan / Payer (Ef fective 2019-Present) Name:Maine Calvo Relation to Subscriber:Self Name:Maine Calvo Payer ID:[id number] ([employer]IC) Type:[facility] Address: [address] CHOICE PLUS [address] Advance Directives For more information, please contact: [phone] * Full Code (Latest Code Status on File) Date Activated Date Inactivated Comments 12/21/2020 12:57 AM 12/31/2020 3:08 AM Care Teams Winemaker Relationship Specialty Start Date End Date Denny Crawley MD [address] [facility] [address] [place] [address] PCP - General Internal Medicine 06/14/17 Jose Hale MD [address] [facility] [address] [place] [address] Orthopedic Surgery 12/30/20
--- OUTSIDE RECORDS SUMMARY | 2024-10-20 21:14 | XMS_ITS | Clinical Summary ---
Author Organization [facility] Administrative Offices Address [address] [place] [address] Care Team Providers Care Plumber Apprentice Name Role Phone Denny Crawley MD Primary Care Provider [phone] Encounters Date Type Department Care Team Description 09/05/2024 External Device Data STL ABSTRACTION Provider, Abstract 09/04/2024 External Device Data [facility] ABSTRACTION Provider, Abstract from Last 3 Months Social History Tobacco Use Types Packs/Day Years Used Date Smoking Tobacco: Never Assessed Comments Unknown Sex and Gender Information Value Date Recorded Sex Assigned at Not on file Legal Sex Female 2:52 PM SALES AND PRODUCTION MANAGER Gender Identity Not on file Sexual [...] OR WO CAD Routine 06/19/2024 1:06 PM SALES AND PRODUCTION MANAGER Visit for screening mammogram from Last 3 Months or Most Recently Relevant to Health Maintenance Results * MAMMO 3D SOLITARIO SCREEN BILAT W OR WO CAD (06/19/2024 1:06 PM SALES AND PRODUCTION MANAGER) Anatomical Region Laterality Modality Breast Bilateral Mammography 06/19/2024 1:06 PM SALES AND PRODUCTION MANAGER Impressions 06/19/2024 1:42 PM SALES AND PRODUCTION MANAGER IMPRESSION: No mammographic evidence of malignancy. RECOMMENDATIONS: Routine screening mammogram in one year. DICTATION LOCATION: [facility] Narrative 06/19/2024 1:42 PM SALES AND PRODUCTION MANAGER MAMMO 3D SOLITARIO SCREEN BILAT W OR [...] Most Recently Relevant to Health Maintenance Insurance [facility] DUAL COMPLETE PPO DSNP [facility] [id number] Care Teams Plumber Apprentice Relationship Specialty Start Date End Date Denny Crawley MD PCP - General Internal Medicine 04/24/21
--- OUTSIDE RECORDS SUMMARY | 2024-10-20 21:14 | XMS_ITS | Encounter Summary ---
Author Organization [facility] Address [address] [facility] [place] [address] Care Team Providers Care Willower Name Role Phone Unavailable Primary Care Provider Unavailabl e Encounter Details Date Type Department Care Team (Late st Contact Info) Description 10/20/2024 8:51 PM CDT Emergency [facility] EMERGENCY DEPARTMENT [address] [place] [address] Social History Tobacco Use Types Packs/Day Years Used Date Smoking Tobacco: Never Assessed Comments Unknown Sex and Gender Information Value Date Recorded Sex Assigned at Not on file Legal Sex Female 4:47 AM INSTRUCTIONAL DESIGN TECHNOLOGIST Gender Identity Not on file Sexual Orientation Not on file documented as of this encounter Plan of Treatment Not on file documented as of this encounter Visit Diagnoses Not on filedocumented in this encounter
--- OUTSIDE RECORDS SUMMARY | 2024-10-20 21:14 | XMS_ITS | Clinical Summary ---
Author Organization [facility] Physician Office Building [address] [place] [address] Care Team Providers Care Warehouse Shipping Receiving Clerk Name Role Phone Denny Crawley MD Primary Care Provider [phone] Jose Hale MD Unavailable + Allergies Active Allergy Reactions Criticality Noted Date Comments Ciprofloxacin Swelling Medium 06/22/2017 per [facility] Penicillin Swelling Medium 03/27/2021 per [facility] Sulfa (Sulfonamide Antibiotics) Swelling Medium 06/17 [...] cervical vertebra, unspecified fracture morphology, initial encounter ([facility]) Take 2 tablets (650 mg total) by [...] PRN. Assessment & Plan (05/13/2021 4:04 PM RAIL TRANSIT OPERATOR): One month status post Procedure(s): EXCHANGE [...] level Assessment & Plan (04/08/2021 2:41 PM RAIL TRANSIT OPERATOR): One week status post Procedure(s): EXCHANGE [...] level Assessment & Plan (04/03/2021 1:13 PM RAIL TRANSIT OPERATOR): One day status post Procedure(s): EXCHANGE [...] activity. 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 file Not on file Obstetrics History Last Filed Vital Signs Vital Sign Reading Time Taken Comments Blood Pressure 141/66 04/02/2021 1:20 PM RAIL TRANSIT OPERATOR Pulse 71 04/02/2021 1:20 PM RAIL TRANSIT OPERATOR Temperature 36.2 C (97.2 F) 04/02/2021 12:35 PM RAIL TRANSIT OPERATOR Respiratory Rate 21 04/02/2021 1:20 PM RAIL TRANSIT OPERATOR Oxygen Saturation 98% 04/02/2021 1:20 PM RAIL TRANSIT OPERATOR Inhaled Oxygen Concentration - - Weight 88.5 kg (195 lb) 04/02/2021 9:09 AM RAIL TRANSIT OPERATOR Height 165.1 cm (5' 5) 04/02/2021 9:09 AM RAIL TRANSIT OPERATOR Body Mass Index 32.45 04/02/2021 9:09 AM RAIL TRANSIT OPERATOR Plan of Treatment Not on file Medical Devices Implanted Type Area Animal Trainer Supervisor Device Identifier Shelf Expiration Date Model / Serial / Lot Nic Surgical [id number] Kelman Multiflex Iii 5.5mm 13mm 1 Piece Uv Absorbent Anterior - [id number] - [id number] Implanted:Qty: 1 on 04/02/2021 by Ludwin Mcdaniel MD at [facility] Lens Left: Lens [employer] [id number] 04/17/2021 [id number] / [id number] 2 / 0 Insurance [facility] PPO [facility] CHOICE PLUS [facility] ACCESS CHOICE BLUE [employer] OOS [address] [place] [address] ACCESS CHOICE Member Subscriber Plan / Payer (Ef fective 2019-Present) Name:Maine Calvo James Relation to Subscriber:Self Name:Maine Calvo Payer ID:[id number] (NAIC) Type:[employer] Address: [address] CHOICE PLUS [facility] MEDICARE ADVANTAGE Advance Directives For more information, please contact: [phone] * Full Code (Latest Code Status on File) Date Activated Date Inactivated Comments 12/21/2020 12:57 AM 12/31/2020 3:08 AM Care Teams Warehouse Shipping Receiving Clerk Relationship Specialty Start Date End Date Denny Crawley MD [address] [address] PCP - General Internal Medicine 06/14/17 Jose Hale MD [address] [address] Orthopedic Surgery 12/30/20
--- OUTSIDE RECORDS SUMMARY | 2024-10-20 21:14 | XMS_ITS | Encounter Summary ---
Author Organization [facility] Healthcare Address [address] [place] [address] Care Team Providers Care Windshield Installer Name Role Phone Denny Crawley MD Primary Care Provider [phone] Jose Hale MD Unavailable + Encounter Details Date Type Department Care Team (Latest Contact Info) Description 12/20/2020 Ophth Exam Ophthalmology Arash Moon MD PhD [address] [facility] [address] [facility] [phone] [place], [place] [id number] Social History Tobacco Use Types Packs/Day Years Used Date Smoking Tobacco: Never Smokeless Tobacco: Never Alcohol Use Standard Drinks/Week Comments No 0 (1 standard drink = 0.6 oz pur e alcohol) PHQ-2 Answer Date Recorded PHQ-2 Score 0 06/22/2018 Comments Unknown Sex and Gender Information Value Date Recorded Sex Assigned at Not on file Legal Sex Female 11:27 PM MUCK BOSS Gender Identity Not on file Sexual Orientation [...] Normal Normal Vessels Normal Normal Periphery Normal, VICE PRESIDENT OF TALENT MANAGEMENT with no RT/RDs. No h gideon Normal, VICE PRESIDENT OF TALENT MANAGEMENT with no RT/RDs. No heme Care Teams Windshield Installer Relationship Specialty Start Date End Date Denny Crawley MD [address] [address] PCP - General Internal Medicine 06/14/17 Jose Hale MD [address] [address] Orthopedic Surgery 12/30/20 documented as of this encounter
[2024-10-20] MEDS: TENECTEPLASE 50 MG/10 ML VIAL 23.8 MG IV PUSH (21:20)
--- NOTE | 2024-10-20 21:22 | PC.NURSE ---
TNK dose verified by this RN, ERP and electrical systems design engineer.
--- NOTE | 2024-10-20 21:33 | PC.NURSE ---
2107 Nikki with [facility] transfer center calls to get triage information. 2110 This RN calls report to SHAUN Gonzalez at [facility] ER.
[2024-10-20 21:36] LABS: Add Urine Microscopic? YES; Appearance Urine Clear (Clear); Glucose Urine UA Negative (Negative); Leukocyte Esterase Ur 2+ LEU/UL (Negative); Nitrate Urine Negative (Negative); Non Pathogenic Casts 0-2; Specific Grav Ur 1.018 (1.001-1.035)
--- NOTE | 2024-10-20 21:41 | PC.NURSE ---
2139 [place] with [facility] calls to get update on transfer.
[2024-10-20 21:50] LABS: Cannabinoid Screen Urine Negative (Negative)
--- NOTE | 2024-10-20 22:09 | PC.NURSE ---
EMS here to transport patient to [facility] ER.
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
[2024-10-22 08:27] LABS: Estimated CRCL calculation 67 ml/min; Estimated Glomerular Filt Rate > 60
== END 2024-10-20 22:15 | disposition short-term general hospital (02) ==
LOC: ANHED 21:12
PROVIDERS: Emergency Medicine; Emergency Provider Student in an Organized Health Care Education/Training Program
DX: I63.9 Cerebral infarction, unspecified (principal); R47.01 Aphasia; R47.1 Dysarthria and anarthria; G81.94 Hemiplegia, unspecified affecting left nondominant side; I10 Essential (primary) hypertension; R29.705 NIHSS score 5; E78.00 Pure hypercholesterolemia, unspecified; E11.39 Type 2 diabetes mellitus with other diabetic ophthalmic complication; H42 Glaucoma in diseases classified elsewhere; F32.A Depression, unspecified; Z90.710 Acquired absence of both cervix and uterus; Z79.84 Long term (current) use of oral hypoglycemic drugs; Z79.899 Other long term (current) drug therapy
CPT/HCPCS: 36415; 37195; 70450; 70496; 70498; 71045; 80053; 80307; 81001; 82565; 82948; 84484; 85025; 85610; 85730; 87086; 87186; 93005; 96365; 96375; 99285; J2404; J3101; Q9967

== ENCOUNTER 2024-11-15 19:45 | Emergency (ER) | payer MEDICARE, SELFPAY ==
[2024-11-15 19:47] VITALS: BP 151/51; PULSE 70; RESP 20; TEMP 36.9; O2SAT 99
--- OUTSIDE RECORDS SUMMARY | 2024-11-15 19:48 | XMS_ITS | Encounter Summary ---
Author Organization [facility] Healthcare Address [address] [place] [address] Care Team Providers Care Master Glazier Name Role Phone Denny Crawley MD Primary Care Provider [phone] Jose Hale MD Unavailable + Encounter Details Date Type Department Care Team (Latest Contact Info) Description 12/20/2020 Ophth Exam Ophthalmology Arash Moon MD PhD [address] [facility] [phone] [place], [place] [id number] Social History Tobacco Use Types Packs/Day Years Used Date Smoking Tobacco: Never Smokeless Tobacco: Never Alcohol Use Standard Drinks/Week Comments No 0 (1 standard drink = 0.6 oz pur e alcohol) PHQ-2 Answer Date Recorded PHQ-2 Score 0 06/22/2018 Comments Unknown Sex and Gender Information Value Date Recorded Sex Assigned at Not on file 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 No heme Care Teams Master Glazier Relationship Specialty Start Date End Date Denny Crawley MD [address] [address] PCP - General Internal Medicine 06/14/17 Jose Hale MD [address] [address] Orthopedic Surgery 12/30/20 documented as of this encounter
--- OUTSIDE RECORDS SUMMARY | 2024-11-15 19:48 | XMS_ITS | Clinical Summary ---
Author Organization [facility] Launchr Address [facility] [place] [address] Care Team Providers Care Marketing Automation Analyst Name Role Phone Denny Crawley MD Primary Care Provider Source Comments [facility] Launchr,non-owned Affiliates and Associated Physician Practices is amultiple site organization consisting of ambulatory clinics and hospital sitesin [place], [place], [place] and [place]. This disclosure is being madepursuant to the Care Everywhere program and may not contain all information available regarding this patient. Last updated 18.[facility] Launchr Allergies Active Allergy Reactions Criticality Noted Date Comments Ciprofloxacin Unknown 10/20/2024 Sulfamethoxazole W-Trimethoprim Unknown 08/2024 Dulaglutide Unknown 10/20/2024 Medications * Be aware that medications may not be up to date on this document. Alwaysverify current medications with the patient. latanoprost 0.005% PF (Lat) eye drops Instill 1 (one) drop into both eyes at bedtime Active Acetaminophen Extra Strength 500 MG TABS Take 2 (two) tablets by mouth every 6 hours as needed For pain. Active brimonidine (Alphagan) 0.2 % ophthalmic solution Instill 1 (one) drop into both eyes 2 times daily Active timolol maleate (Timoptic) 0.5 % ophthalmic solution Instill 1 (one) drop into both eyes 2 times daily Active buPROPion XL 24hr (Wellbutrin-XL) 300 MG tablet Take 1 (one) tablet by mouth once daily Active clobetasol (Temovate) 0.05 % ointment Apply to affected area 2 times daily Active cyclobenzaprine (Flexeril) 10 MG tablet Take 1 (one) tablet by mouth 3 times daily as needed for Muscle Spasms Active glimepiride (Amaryl) 2 MG tablet Take 1 (one) tablet by mouth once daily 5 Active aspirin (Aspirin) 81 MG chew tablet Take 1 (one) tablet by mouth once daily (chew and swallow) 30 tablet 3 10/25/2024 2:32 PM CDT 5 10/27/19 26 Active atorvastatin (Lipitor) 40 MG tablet Take 1 (one) tablet by mouth at bedtime 30 tablet 3 10/25/2024 2:32 PM CDT 5 Active carvedilol (Coreg) 25 MG tablet Take 1 (one) tablet by mouth 2 times daily with morning and evening meal 60 tablet 3 10/25/2024 2:32 PM CDT 5 10/26/19 26 Active chlorthalidone (Hygroton) 25 MG tablet Take 1 (one) tablet by mouth once daily 30 tablet 3 10/25/2024 2:32 PM CDT 5 Active lisinopril (Prinivil; Zestril) 40 MG tablet Take 1 (one) tablet by mouth once daily 30 tablet 3 10/25/2024 2:32 PM CDT 5 10/27/19 26 Active metFORMIN (Glucophage) 1000 MG tablet Take 1 (one) tablet by mouth 2 times daily Active omeprazole (PriLOSEC) 40 MG capsule Take 1 (one) capsule by mouth once daily Active ibuprofen (Motrin) 600 MG tablet Take 1 (one) tablet by mouth 3 times daily as needed For pain. 5 Active OneTouch Verio test strip Use 1 (one) strip 2 times daily 5 Active NIFEdipine CR 24hr (Adalat CC) 30 MG tablet Take 1 (one) tablet by mouth 2 times daily Take on an empty stomach. 60 tablet 5 Active gabapentin (Neurontin) 100 MG capsule Take 1 (one) capsule by mouth at bedtime 30 capsule 5 Active amoxicillin-cla vulanate (Augmentin) 500-125 MG tablet Take 1 (one) tablet by mouth 2 times daily 10/26/19 25 Discontinu ed(List Clean-Up) atorvastatin (Lipitor) 20 MG tablet Take 1 (one) tablet by mouth once daily 10/26/19 25 Discontinu ed(Clinica l Decision) azithromycin (Zithromax) 250 MG tablet Take 1 (one) tablet by mouth once daily 10/26/19 25 Discontinu ed(List Clean-Up) benzonatate (Tessalon) 100 MG capsule Take 1 (one) capsule by mouth 3 times daily as needed for cough 5 10/26/19 25 Discontinu ed(List Clean-Up) bumetanide (Bumex) 0.5 MG tablet 1 (one) tablet once daily 10/26/19 25 Discontinu ed(Clinica l Decision) bumetanide (Bumex) 1 MG tablet Take 0.5 (one-half) tablet by mouth 2 times daily 10/26/19 25 Discontinu ed(Clinica l Decision) empagliflozin (Jardiance) 25 MG tablet Take 1 (one) tablet by mouth once daily 10/31/19 25 Discontinu ed(List Clean-Up) furosemide (Lasix) 20 MG tablet Take 1 (one) tablet by mouth once daily 10/26/19 25 Discontinu ed(List Clean-Up) hydroCHLOROthia zide (Hydrodiuril) 25 MG tablet Take 1 (one) tablet by mouth once daily 10/26/19 25 Discontinu ed(Clinica l Decision) glimepiride (Amaryl) 4 MG tablet Take 1 (one) tablet by mouth once daily 4 10/26/19 25 Discontinu ed(List Clean-Up) NIFEdipine CR 24hr (Adalat CC) 60 MG tablet Take 1 (one) tablet by mouth 2 times daily 60 tablet 3 10/25/2024 2:32 PM CDT 5 10/31/19 Discontinu ed(Dose Adjustment ) Active Problems Problem Noted Date Diagnosed Date Urinary incontinence 10/21/2024 Retinal tear 10/21/2024 Assessment & Plan (10/25/2024 2:33 PM CDT): - Continue home Latanoprost and Timolol Assessment & Plan (10/25/2024 3:09 PM CDT): - Continue home latanoprost and timolol Assessment & Plan (10/24/2024 3:21 PM CDT): - Continue home eyedrops Increased frequency of urination 10/21/2024 Essential hypertension 10/21/2024 Assessment & Plan (10/25/2024 2:33 PM CDT): - Elevated BP up to SBP in 200s during admission - Documented history of hypertension, home regimen includes lisinopril 5mg - CTA 2021: 9mm right and 9mm left adrenal nodules likely adenomas - Nephrology consulted for hypertension management - Ddx: primary HTN vs secondary HTN 2/2 pheochromocytoma, hyperRAAS, hypercortisolism, CITLALY PLAN: - Nephrology consulted, appreciate recommendations - Obtain AM aldosterone, renin levels (ordered) - Obtain 1mg dex suppression test (ordered) - Obtain 24h urinary free cortisol (ordered) - Continue Carvedilol 25 mg BID - Continue Chlorthalidone 25 mg Qday - Continue Lisinopril 40 mg Qday - Continue Nifedipine 60 mg BID Assessment & Plan (10/25/2024 2:33 PM CDT): - Elevated BP up to SBP in 200s during admission - Documented history of hypertension, home regimen includes lisinopril 5mg. Experienced itchiness on HCTZ - CTA 2021: 9mm right and 9mm left adrenal nodules likely adenomas - US 10/23 showing diffuse increase in resistive indicis of the bilateral kidneys concerning for underlying renal parenchymal disease. - Nephrology consulted for hypertension management. - Ddx: primary HTN vs secondary HTN 2/2 pheochromocytoma, hyperRAAS, hypercortisolism, CITLALY PLAN: - Nephrology consulted, appreciate recommendations - Obtain AM aldosterone, renin levels (ordered) - Obtain 1mg dex suppression test (ordered) - Obtain 24h urinary free cortisol (ordered) - Plasma metanephrines ordered to rule out pheochromocytoma given episodes of flushing with hypertension - BP regimen: Coreg 25mg BID, lisinopril 40mg daily, increase to nifedipine 60mg BID, chlorthalidone 25mg daily - f/u hyperaldosteronism and hypercortisolism with PCP in 2-3 weeks and nephrology clinic in 6 weeks. Continue new above BP regimen on discharge Assessment & Plan (10/24/2024 3:21 PM CDT): - Elevated BP up to SBP in 200s during admission - Documented history of hypertension, home regimen includes lisinopril 5mg - CTA 2021: 9mm right and 9mm left adrenal nodules likely adenomas - Nephrology consulted for hypertension management - Ddx: primary HTN vs secondary HTN 2/2 pheochromocytoma, hyperRAAS, hypercortisolism, CITLALY PLAN: - Nephrology consulted, appreciate recommendations - Obtain AM aldosterone, renin levels (ordered) - Obtain 1mg dex suppression test (ordered) - Obtain 24h urinary free cortisol (ordered) - Coreg 25mg BID, lisinopril 40mg daily, nifedipine 30mg BID, chlorthalidone 25mg daily - Plasma metanephrines ordered to rule out pheochromocytoma given episodes of flushing with hypertension Atrophic vaginitis 10/21/2024 Anemia 10/21/2024 Cerebrovascular accident (CVA), unspecified mech anism 10/20/2024 Assessment & Plan (10/25/2024 2:33 PM CDT): - Admitted by stroke team for dysarthria and right arm numbness, given TNK at OSH - No acute stroke seen on brain MRI but possible subacute infarct - Ddx: TIA, PRES, subacute stroke, hypertensive emergency PLAN: - F/u with Neurology outpatient - MRI wwo contrast in 6-8 weeks - 30 day alarm mechanism adjuster on discharge - Follow up in stroke clinic (scheduled) - Continue Atorvastatin 40 mg Qday - Continue Aspirin 81 mg Qday Assessment & Plan (10/25/2024 2:33 PM CDT): - Admitted by stroke team for dysarthria and right arm numbness, given TNK at OSH - No acute stroke seen on brain MRI but possible subacute infarct. CTH at OSH w/o acute findings. CTA with no large occlusions. - Ddx: TIA, PRES, subacute stroke, hypertensive emergency PLAN: - F/u with Neurology outpatient - MRI wwo contrast in 6-8 weeks - 30 day alarm mechanism adjuster on discharge - Follow up in stroke clinic - Q4h vitals and neuro checks - Atorvastatin 40mg, ASA 81mg Assessment & Plan (10/24/2024 4:43 PM CDT): - Admitted by stroke team for dysarthria and right arm numbness, given TNK at OSH - No acute stroke seen on brain MRI but possible subacute infarct - Ddx: TIA, PRES, subacute stroke, hypertensive emergency PLAN: - F/u with Neurology outpatient - MRI wwo contrast in 6-8 weeks - 30 day alarm mechanism adjuster on discharge - Follow up in stroke clinic - Q4h vitals and neuro checks - Atorvastatin 40mg, ASA 81mg History of thrombolytic therapy 10/20/2024 Assessment & Plan (10/25/2024 2:33 PM CDT): - Admitted by stroke team for dysarthria and right arm numbness, given TNK at OSH - No acute stroke seen on brain MRI but possible subacute infarct - Ddx: TIA, PRES, subacute stroke, hypertensive emergency PLAN: - F/u with Neurology outpatient - MRI wwo contrast in 6-8 weeks - 30 day alarm mechanism adjuster on discharge - Follow up in stroke clinic (scheduled) - Continue Atorvastatin 40 mg Qday - Continue Aspirin 81 mg Qday Assessment & Plan (10/25/2024 2:33 PM CDT): - Admitted by stroke team for dysarthria and right arm numbness, given TNK at OSH - No acute stroke seen on brain MRI but possible subacute infarct. CTH at OSH w/o acute findings. CTA with no large occlusions. - Ddx: TIA, PRES, subacute stroke, hypertensive emergency PLAN: - F/u with Neurology outpatient - MRI wwo contrast in 6-8 weeks - 30 day alarm mechanism adjuster on discharge - Follow up in stroke clinic - Q4h vitals and neuro checks - Atorvastatin 40mg, ASA 81mg Assessment & Plan (10/24/2024 4:43 PM CDT): - Admitted by stroke team for dysarthria and right arm numbness, given TNK at OSH - No acute stroke seen on brain MRI but possible subacute infarct - Ddx: TIA, PRES, subacute stroke, hypertensive emergency PLAN: - F/u with Neurology outpatient - MRI wwo contrast in 6-8 weeks - 30 day alarm mechanism adjuster on discharge - Follow up in stroke clinic - Q4h vitals and neuro checks - Atorvastatin 40mg, ASA 81mg Dysarthria 10/20/2024 Assessment & Plan (10/25/2024 2:33 PM CDT): - Admitted by stroke team for dysarthria and right arm numbness, given TNK at OSH - No acute stroke seen on brain MRI but possible subacute infarct - Ddx: TIA, PRES, subacute stroke, hypertensive emergency PLAN: - F/u with Neurology outpatient - MRI wwo contrast in 6-8 weeks - 30 day alarm mechanism adjuster on discharge - Follow up in stroke clinic (scheduled) - Continue Atorvastatin 40 mg Qday - Continue Aspirin 81 mg Qday Assessment & Plan (10/25/2024 2:33 PM CDT): - Admitted by stroke team for dysarthria and right arm numbness, given TNK at OSH - No acute stroke seen on brain MRI but possible subacute infarct. CTH at OSH w/o acute findings. CTA with no large occlusions. - Ddx: TIA, PRES, subacute stroke, hypertensive emergency PLAN: - F/u with Neurology outpatient - MRI wwo contrast in 6-8 weeks - 30 day alarm mechanism adjuster on discharge - Follow up in stroke clinic - Q4h vitals and neuro checks - Atorvastatin 40mg, ASA 81mg Assessment & Plan (10/24/2024 4:43 PM CDT): - Admitted by stroke team for dysarthria and right arm numbness, given TNK at OSH - No acute stroke seen on brain MRI but possible subacute infarct - Ddx: TIA, PRES, subacute stroke, hypertensive emergency PLAN: - F/u with Neurology outpatient - MRI wwo contrast in 6-8 weeks - 30 day alarm mechanism adjuster on discharge - Follow up in stroke clinic - Q4h vitals and neuro checks - Atorvastatin 40mg, ASA 81mg Dysphasia 10/20/2024 Assessment & Plan (10/25/2024 2:33 PM CDT): - Admitted by stroke team for dysarthria and right arm numbness, given TNK at OSH - No acute stroke seen on brain MRI but possible subacute infarct - Ddx: TIA, PRES, subacute stroke, hypertensive emergency PLAN: - F/u with Neurology outpatient - MRI wwo contrast in 6-8 weeks - 30 day alarm mechanism adjuster on discharge - Follow up in stroke clinic (scheduled) - Continue Atorvastatin 40 mg Qday - Continue Aspirin 81 mg Qday Assessment & Plan (10/25/2024 2:33 PM CDT): - Admitted by stroke team for dysarthria and right arm numbness, given TNK at OSH - No acute stroke seen on brain MRI but possible subacute infarct. CTH at OSH w/o acute findings. CTA with no large occlusions. - Ddx: TIA, PRES, subacute stroke, hypertensive emergency PLAN: - F/u with Neurology outpatient - MRI wwo contrast in 6-8 weeks - 30 day alarm mechanism adjuster on discharge - Follow up in stroke clinic - Q4h vitals and neuro checks - Atorvastatin 40mg, ASA 81mg Assessment & Plan (10/24/2024 4:43 PM CDT): - Admitted by stroke team for dysarthria and right arm numbness, given TNK at OSH - No acute stroke seen on brain MRI but possible subacute infarct - Ddx: TIA, PRES, subacute stroke, hypertensive emergency PLAN: - F/u with Neurology outpatient - MRI wwo contrast in 6-8 weeks - 30 day alarm mechanism adjuster on discharge - Follow up in stroke clinic - Q4h vitals and neuro checks - Atorvastatin 40mg, ASA 81mg Right arm numbness 10/20/2024 Assessment & Plan (10/25/2024 2:33 PM CDT): - Admitted by stroke team for dysarthria and right arm numbness, given TNK at OSH - No acute stroke seen on brain MRI but possible subacute infarct - Ddx: TIA, PRES, subacute stroke, hypertensive emergency PLAN: - F/u with Neurology outpatient - MRI wwo contrast in 6-8 weeks - 30 day alarm mechanism adjuster on discharge - Follow up in stroke clinic (scheduled) - Continue Atorvastatin 40 mg Qday - Continue Aspirin 81 mg Qday Assessment & Plan (10/25/2024 2:33 PM CDT): - Admitted by stroke team for dysarthria and right arm numbness, given TNK at OSH - No acute stroke seen on brain MRI but possible subacute infarct. CTH at OSH w/o acute findings. CTA with no large occlusions. - Ddx: TIA, PRES, subacute stroke, hypertensive emergency PLAN: - F/u with Neurology outpatient - MRI wwo contrast in 6-8 weeks - 30 day alarm mechanism adjuster on discharge - Follow up in stroke clinic - Q4h vitals and neuro checks - Atorvastatin 40mg, ASA 81mg Assessment & Plan (10/24/2024 4:43 PM CDT): - Admitted by stroke team for dysarthria and right arm numbness, given TNK at OSH - No acute stroke seen on brain MRI but possible subacute infarct - Ddx: TIA, PRES, subacute stroke, hypertensive emergency PLAN: - F/u with Neurology outpatient - MRI wwo contrast in 6-8 weeks - 30 day alarm mechanism adjuster on discharge - Follow up in stroke clinic - Q4h vitals and neuro checks - Atorvastatin 40mg, ASA 81mg DM (diabetes mellitus) 10/20/2024 Assessment & Plan (10/25/2024 2:33 PM CDT): - A1c 7.1 on 10/23/24 - Home regimen: Glimepiride 2mg daily - Resume Glimepiride after discharge Assessment & Plan (10/25/2024 10:05 AM CDT): - A1c 7.1 on 10/23/24 - Home regimen glimeperide 2mg daily - Seen by DM educator on 10/23 PLAN: - SSI, TIDAC ACC Assessment & Plan (10/24/2024 2:45 PM CDT): - A1c 7.1 on 10/23/24 - Home regimen glimeperide 2mg daily PLAN: - SSI, TIDAC ACC Type 2 diabetes mellitus treated with insulin Assessment & Plan (10/25/2024 2:33 PM CDT): - A1c 7.1 on 10/23/24 - Home regimen: Glimepiride 2mg daily - Resume Glimepiride after discharge Assessment & Plan (10/25/2024 10:05 AM CDT): - A1c 7.1 on 10/23/24 - Home regimen glimeperide 2mg daily - Seen by DM educator on 10/23 PLAN: - SSI TIDAC ACC Assessment & Plan (10/24/2024 2:45 PM CDT): - A1c 7.1 on 10/23/24 - Home regimen glimeperide 2mg daily PLAN: - SSI, TIDAC ACC Gastroesophageal reflux disease 07/20/2024 Polyneuropathy due to type 2 diabetes mellitus 0 07/19/2024 Acquired hallux valgus 07/19/2024 Bunion 09/29/2022 Acquired pes planus of left foot 09/29/2022 Migraine 09/27/2022 Assessment & Plan (10/25/2024 2:33 PM CDT): - Admitted by stroke team for dysarthria and right arm numbness, given TNK at OSH - No acute stroke seen on brain MRI but possible subacute infarct - Ddx: TIA, PRES, subacute stroke, hypertensive emergency PLAN: - F/u with Neurology outpatient - MRI wwo contrast in 6-8 weeks - 30 day alarm mechanism adjuster on discharge - Follow up in stroke clinic (scheduled) - Continue Atorvastatin 40 mg Qday - Continue Aspirin 81 mg Qday Assessment & Plan (10/25/2024 2:33 PM CDT): - Admitted by stroke team for dysarthria and right arm numbness, given TNK at OSH - No acute stroke seen on brain MRI but possible subacute infarct. CTH at OSH w/o acute findings. CTA with no large occlusions. - Ddx: TIA, PRES, subacute stroke, hypertensive emergency PLAN: - F/u with Neurology outpatient - MRI wwo contrast in 6-8 weeks - 30 day alarm mechanism adjuster on discharge - Follow up in stroke clinic - Q4h vitals and neuro checks - Atorvastatin 40mg, ASA 81mg Assessment & Plan (10/24/2024 4:43 PM CDT): - Admitted by stroke team for dysarthria and right arm numbness, given TNK at OSH - No acute stroke seen on brain MRI but possible subacute infarct - Ddx: TIA, PRES, subacute stroke, hypertensive emergency PLAN: - F/u with Neurology outpatient - MRI wwo contrast in 6-8 weeks - 30 day alarm mechanism adjuster on discharge - Follow up in stroke clinic - Q4h vitals and neuro checks - Atorvastatin 40mg, ASA 81mg Seasonal allergies 09/27/2022 Obesity 09/27/2022 Heartburn 09/27/2022 Anxiety 09/27/2022 Assessment & Plan (10/25/2024 2:33 PM CDT): - Continue home Bupropion 300 mg Qday Assessment & Plan (10/25/2024 8:01 AM CDT): - Continue home buproprion Assessment & Plan (10/24/2024 4:43 PM CDT): - Continue home buproprion Arthritis 09/27/2022 Assessment & Plan (10/25/2024 2:33 PM CDT): - Continue to monitor Assessment & Plan (10/25/2024 8:01 AM CDT): - CTM Assessment & Plan (10/24/2024 2:45 PM CDT): - CTM Lens dislocation and subluxation, left 1 Closed fracture of right tibial plateau 12/30/19 21 Closed fracture of multiple ribs of right side 0 12/29/2020 Closed fracture of head of left fibula 1 Closed nondisplaced fracture of second cervical vertebra 12/20/2020 Encounters Date Type Department Care Team Description 10/30/2024 2:30 PM CDT Office Visit Transitional Care at [address] [phone] Janet Kaye, PYTHON PROGRAMMER-FINANCIAL SERVICES SALES REPRESENTATIVE Hospital discharge follow-up (Primary Dx); Essential hypertension; Type 2 diabetes mellitus without complication, without long-term current use of insulin (HCC); Cerebrovascular accident (CVA), unspecified mechanism (HCC); Neuropathy 10/30/2024 Travel 10/29/2024 Telephone Transitional Care at [address] [phone] Stephanie Park, photography colorist 10/26/2024 Telephone Transitional Care at [address] [phone] Stephanie Park, photography colorist 10/20/2024 10:47 PM CDT - 10/25/2024 4:03 PM CDT Hospital Encounter [facility] [address] [place] [address] Matt Ferguson MD Esechie, Aimalohi, MD Archuleta, Lydia, MD Bhalla, MD [facility] Discharge Disposition: Home or Self Care 10/20/2024 Travel from Last 3 Months Social History Tobacco Use Types Packs/Day Years Used Date Smoking Tobacco: Unknown Tobacco Cessation:Counseling Given: No Alcohol Use Standard Drinks/Week Comments Not Currently 0 (1 standard drink = 0.6 oz pur e alcohol) AUDIT-C Answer Date Recorded Q1: How often do you have a drink containing alc ohol? Patient declined 10/21/2024 Q2: How many drinks containi ng alcohol do you have on a typical day when you are drinking? Patient declined 10/21/2024 Q3: How often do you have si x or more drinks on one occasion? Patient declined 10/21/2024 Overall Financial Resource Strain (CARDIA) Answe r Date Recorded How hard is it for you to pa y for the very basics like food, housing, medical care, and heating? Patient unable to answer 10/21/2024 [facility] - Occupational Stress Questionnaire Answer Date Recorded Do you feel stress - tense, restless, nervous, or anxious, or unable to sleep at night because your mind is troubled all the time - these days? Patient declined 10/21/2024 Hunger Vital Sign Answer Date Recorded Within the past 12 months, y ou worried that your food would run out before you got the money to buy more. Patient declined Within the past 12 months, t he food you bought just didn't last and you didn't have money to get more. Patient declined 09/2024 PRAPARE - Transportation Answer Date Re corded In the past 12 months, has l ack of transportation kept you from medical appointments or from getting medications? Patient unable to answer 10/21/2024 In the past 12 months, has l ack of transportation kept you from meetings, work, or from getting things needed for daily living? Patient unable to answer 10/21/2024 Housing Stability Vital Sign Answer Ananda e Recorded In the last 12 months, was t here a time when you were not able to pay the mortgage or rent on time? Patient unable to answer 10/21/2024 In the past 12 months, how m any times have you moved where you were living? 0 10/21/2024 At any time in the past 12 m [facility], were you homeless or living in a prison (including now)? Patient unable to answer 10/21/2024 Comments No Sex and Gender Information Value Date Recorded Sex Assigned at Not on file Legal Sex Female 4:47 AM HEEL PACKER Gender Identity Not on file Sexual Orientation Not on file Last Filed Vital Signs Vital Sign Reading Time Taken Comments Blood Pressure 121/54 10/30/2024 2:17 PM CDT Pulse 68 10/30/2024 2:17 PM CDT Temperature 36.6 C (97.9 F) 10/30/2024 2:17 PM CDT Respiratory Rate 18 10/30/2024 2:17 PM CDT Oxygen Saturation 97% 10/30/2024 2:17 PM CDT Inhaled Oxygen Concentration - - Weight 93.5 kg (206 lb 3.2 oz) 10/30/2024 2:17 P M CDT Height 165.1 cm (5' 5) 10/30/2024 2:17 PM CDT Body Mass Index 34.31 10/30/2024 2:17 PM CDT Plan of Treatment Upcoming Encounters Date Type Department Care Team (Late st Contact Info) Description 11/29/2024 10:00 AM CDT Office Visit [facility] - Neurology [address] [place] [address], [place] [phone] Galilea Joseph PA-C [address] [place] [address] [address] [place] [phone] 03/01/2025 1:30 PM HEEL PACKER Appointment [facility] MRI [address] [place] [phone] Elsie Chapman MD [address] [place] [address] 03/27/2025 12:30 PM HEEL PACKER Office Visit [facility] - Nephrology [address] [place] [address], [place] [phone] Alexandria Garrison APRN-GEORGETTE [address] [place] [phone] Clarence Willson MD [address] [place] [address] [address] [place] [phone] Health Maintenance Due Date Last Done Comments BONE DENSITY TESTING 1955 COLOGUARD (AGES 45-75) - COLON CA SCREENING 1956 COLON MONITORING 1956 COLONOSCOPY - COLON CA SCREENING 1956 CT COLONOGRAPHY - COLON CA SCREENING 1956 Colorectal Cancer Screening 1956 FIT - COLON CA SCREENING 1956 FLEX SIG - COLON CA SCREENING 1956 HEPATITIS C SCREENING 07/21/1974 DTAP/TDAP/TD VACCINES (1 - Tdap) 07/26/1975 PNEUMOCOCCAL VACCINE 50+ (1 of 2 - PCV) 07/26/1975 ZOSTER VACCINE (1 of 2) 2006 Respiratory Syncytial Virus (RSV) Vaccine Pt: or over 60 yrs (1 - Risk 60-74 years 1-dose series) 2016 COVID-19 VACCINE (2023- season) 2023 03/26/2022, 05/12/2021, 07/23/2020, Additional history exists DEPRESSION SCREENING 04/18/2024 DIABETES - URINE PROTEIN SCREENING 04/18/2024 MEDICARE AWV CALENDAR YEAR 2024 DIABETES RETINOPATHY SCREENING 10/20/2024 02/18/2021, 01/07/2021 DIABETES-FOOT EXAM WITH MONOFILAMENT 10/20/2024 INFLUENZA VACCINE (#1) 2024 01/29/2022, 2019 DIABETES-HGB A1C 04/25/2025 10/23/2024, 10/21/2024 DIABETES-SERUM CREATININE 10/25/20252024, 10/24/2024, 10/23/2024, Additional history exists MAMMOGRAM 06/19/2026 06/19/2024, 0307/2024, 05/10/2023, Additional history exists HEPATITIS B VACCINE Aged Out No longe r eligible based on patient's age to complete this topic HIB VACCINE Aged Out No longer eligi ble based on patient's age to complete this topic HPV VACCINE Aged Out No longer eligi ble based on patient's age to complete this topic MENINGOCOCCAL (Group B) VACCINE SHARED DECISION-MAKING Aged Out No longer eligible based on patient's age to complete this topic MENINGOCOCCAL GROUPS A/C/Y/W VACCINE Aged Out No longer eligible based on patient's age to complete this topic Procedures Procedure Name Priority Date/Time Associated Diagnosis Comments GLUCOSE - POINT OF CARE Routine 10/25/2024 12:22 PM CDT RENIN ACTIVITY AM Draw 10/25/2024 10:48 AM CDT ALDOSTERONE BLOOD AM Draw 10/25/2024 10: 48 AM CDT METANEPHRINES FRACTIONATED PLASMA AM Draw 10/25/2024 10:48 AM CDT PHOSPHORUS BLOOD Routine 10/25/2024 10:4 8 AM CDT MAGNESIUM BLOOD Routine 10/25/2024 10:48 AM CDT COMPREHENSIVE METABOLIC PANEL AM Draw 10/25/2024 10:48 AM CDT CBC W/O DIFFERENTIAL Routine 10/25/2024 10:48 AM CDT GLUCOSE - POINT OF CARE Routine 10/25/2024 8:18 AM CDT GLUCOSE - POINT OF CARE Routine 10/25/2024 8:14 AM CDT GLUCOSE - POINT OF CARE Routine 10/24/2024 10:59 PM CDT GLUCOSE - POINT OF CARE Routine 10/24/2024 6:11 PM CDT CORTISOL BLOOD AM Timed 10/24/2024 5:0 5 PM CDT GLUCOSE - POINT OF CARE Routine 10/24/2024 12:25 PM CDT GLUCOSE - POINT OF CARE Routine 10/24/2024 8:02 AM CDT PHOSPHORUS BLOOD Routine 10/24/2024 5:48 AM CDT MAGNESIUM BLOOD Routine 10/24/2024 5:48 AM CDT COMPREHENSIVE METABOLIC PANEL AM Draw 10/24/2024 5:48 AM CDT CBC W/O DIFFERENTIAL Routine 10/24/2024 5:48 AM CDT GLUCOSE - POINT OF CARE Routine 10/23/2024 8:45 PM CDT GLUCOSE - POINT OF CARE Routine 10/23/2024 4:38 PM CDT US KIDNEY WITH DOPPLER Routine 10/23/2024 3:03 PM CDT Essential hypertension GLUCOSE - POINT OF CARE Routine 10/23/2024 12:12 PM CDT GLUCOSE - POINT OF CARE Routine 10/23/2024 8:40 AM CDT TSH REFLEX FREE T4 Routine 10/23/2024 6: 10 AM CDT PHOSPHORUS BLOOD Routine 10/23/2024 6:10 AM CDT MAGNESIUM BLOOD Routine 10/23/2024 6:10 AM CDT COMPREHENSIVE METABOLIC PANEL AM Draw 10/23/2024 6:10 AM CDT CBC W/O DIFFERENTIAL Routine 10/23/2024 6:10 AM CDT HEMOGLOBIN A1C Add on 10/23/2024 6:10 AM CDT GLUCOSE - POINT OF CARE Routine 10/22/2024 7:49 PM CDT GLUCOSE - POINT OF CARE Routine 10/22/2024 5:48 PM CDT MRI BRAIN WO CONTRAST Routine 10/22/2024 5:10 PM CDT Cerebrovascular accident (CVA), unspecified mechanism (HCC) ECHO COMPLETE W CONTRAST W BUBBLE STUDY Routine 10/22/2024 1:10 PM CDT Cerebrovascular accident (CVA), unspecified mechanism (HCC) GLUCOSE - POINT OF CARE Routine 10/22/2024 12:13 PM CDT CARDIAC EKG ORDER 10/22/2024 11: 27 AM CDT GLUCOSE - POINT OF CARE Routine 10/22/2024 7:41 AM CDT CBC W/O DIFFERENTIAL Routine 10/22/2024 1:09 AM CDT PHOSPHORUS BLOOD Routine 10/22/2024 12:1 9 AM CDT MAGNESIUM BLOOD Routine 10/22/2024 12:19 AM CDT COMPREHENSIVE METABOLIC PANEL AM Draw 10/22/2024 12:[address] HEAD WO CONTRAST Routine 10/21/2024 1 1:24 PM CDT Cerebrovascular accident (CVA), unspecified mechanism (HCC) GLUCOSE - POINT OF CARE Routine 10/21/2024 9:24 PM CDT GLUCOSE - POINT OF CARE Routine 10/21/2024 4:06 PM CDT GLUCOSE - POINT OF CARE Routine 10/21/2024 11:24 AM CDT URINALYSIS REFLEX TO MICROSCOPIC NO CULTURE STAT 10/21/2024 10:00 AM CDT HEMOGLOBIN A1C Add on 10/21/2024 9:08 AM CDT EKG 12-LEAD Routine 10/21/2024 1:01 AM CDT Cerebrovascular accident (CVA), unspecified mechanism (HCC) TROPONIN-I HIGH SENSITIVE REFLEX 1HOUR Timed 10/20/2024 11:56 PM CDT PHOSPHORUS BLOOD STAT 10/20/2024 11:5 6 PM CDT MAGNESIUM BLOOD STAT 10/20/2024 11:56 PM CDT COMPREHENSIVE METABOLIC PANEL STAT 10/20/2024 11:56 PM CDT LIPID PROFILE STAT 10/20/2024 11:22 PM CDT CBC W/O DIFFERENTIAL STAT 10/20/2024 11:[address] ANGIO BRAIN NECK STROKE STAT 10/20/2024 11:15 PM CDT Cerebrovascular accident (CVA), unspecified mechanism (HCC) TROPONIN-I HIGH SENSITIVE BASELINE + 1HR STAT 10/20/2024 11:13 PM CDT XR CHEST 1VW PORTABLE STAT 10/20/2024 11:10 PM CDT Cerebrovascular accident (CVA), unspecified mechanism (HCC) ISTAT CREATININE Routine 10/20/2024 11:0 3 PM CDT INR WHOLE BLOOD - POINT OF CARE (IP) STROKE Routine 10/20/2024 11:[address] BRAIN STROKE STAT 10/20/2024 10:57 PM CDT Cerebrovascular accident (CVA), unspecified mechanism (HCC) GLUCOSE - POINT OF CARE Routine 10/20/2024 10:50 PM CDT from Last 3 Months Results * (ABNORMAL) GLUCOSE - POINT OF CARE (10/25/2024 12:22 PM CDT) Only the most recent of19 resultswithin the time period is included. Pathologist [facility] Glucose WB/POC 270(H) 70 - 99 mg/dL 10/25/2024 12:24 PM CDT [facility] Specimen Type Arterial/C apillary 10/25/2024 12:24 PM CDT [facility] Blood BLOOD SPECIMEN / Unknown 10/25/2024 12:22 PM CDT 10/25/2024 12:24 PM CDT us Memo Costa MD LAB - POINT OF CARE ORDERABLES Final Result [facility] [address] [place] [address], [facility] [phone] * METANEPHRINES FRACTIONATED PLASMA (10/25/2024 10:48 AM CDT) [facility] Metanephrine <0.10 0.00 - 0.49 nmol/L 10/30/2024 1:23 PM CDT [facility] ([facility]) Normetanephrine 0.61 0.00 - 0.89 nmol/L 10/30/2024 1:23 PM CDT [facility] ([facility]) Interpretation Metanephrine See Note 10/30/2024 1:23 PM CDT [facility] ([facility]) Comment: INTERPRETIVE INFORMATION: Metanephrines, Plasma (Free) This test is useful in the detection of pheochromocytoma, a rare neuroendocrine tumor. The majority of patients with pheochromocytoma have a plasma normetanephrine concentration in excess of 2.2 nmol/L and/or a metanephrine concentration in excess of 1.1 nmol/L. Increased concentrations of these analytes serve as confirmation for diagnosis. Patients with essential hypertension and plasma concentrations of normetanephrine below 0.9 nmol/L and a metanephrine concentration below 0.5 nmol/L, can be excluded from further testing. If clinical suspicion remains, repeat testing or testing for metanephrines in a 24-hr. urine specimen should be considered. This test was developed and its performance characteristics determined by [facility]. It has not been cleared or approved by the US Food and Drug Administration. This test was performed in a CLIA certified laboratory and is intended for clinical purposes. Performed By: [facility] [address] [place] [address] Bench Worker: Bennett Singleton MD, PhD IA Number: [id number] Blood BLOOD SPECIMEN / Unknown Lab Venipuncture / Unknown 10/25/2024 10:48 AM CDT 10/25/2024 10:55 AM CDT Marixa Arroyo MD LAB - CHEMISTRY ORDERABLES nal Result [facility]) [address] [place] [address], [facility] * RENIN ACTIVITY (10/25/2024 10:48 AM CDT) Renin 1.1 ng/mL/hr 10/28/2024 5:50 PM CDT [facility] ([facility]) Comment: INTERPRETIVE INFORMATION: Renin Activity Adult, Normal sodium diet: Supine ................. 0.2-1.6 ng/mL/hr Upright ................ 0.5-4.0 ng/mL/hr Children, Normal sodium diet, Supine: [place] (1-7 days) ..... 2.0-35.0 ng/mL/hr Cord blood ............. 4.0-32.0 ng/mL/hr 1-12 mos ............... 2.4-37.0 ng/mL/hr 13 mos-3 yrs ........... 1.7-11.2 ng/mL/hr 4-5 yrs ................ 1.0- 6.5 ng/mL/hr 6-10 yrs ............... 0.5- 5.9 ng/mL/hr 11-15 yrs .............. 0.5- 3.3 ng/mL/hr Children, normal sodium diet, Upright: 0-3 yrs ................ Not Available 4-5 yrs ................ Less than or equal to 15 ng/mL/hr 6-10 yrs ............... Less than or equal to 17 ng/mL/hr 11-15 yrs .............. Less than or equal to 16 ng/mL/hr Plasma renin activity measures enzyme ability to convert angiotensinogen to angiotensin I and is limited by the availability of angiotensinogen. Plasma renin activity is not an accurate indicator of enzyme activity when angiotensinogen is decreased. This test was developed and its performance characteristics determined by [facility]. It has not been cleared or approved by the US Food and Drug Administration. This test was performed in a CLIA certified laboratory and is intended for clinical purposes. Performed By: [facility] [address] [place] [address] Bench Worker: Bennett Singleton MD, PhD CLIA Number: [id number] Blood BLOOD SPECIMEN / Unknown Lab Venipuncture / Unknown 10/25/2024 10:48 AM CDT 10/25/2024 11:19 AM CDT Marixa Arroyo MD LAB - CHEMISTRY ORDERABLES Fi nal Result Performing Organization Address [facility] Co de Phone Number [facility] ([facility]) [address] [place] [address] * ALDOSTERONE BLOOD (10/25/2024 10:48 AM CDT) Aldosterone <3.0 ng/dL 10/28/2024 12:34 AM CDT [facility] [employer] [facility] ([facility]) Comment: INTERPRETIVE INFORMATION: Aldosterone, Serum Reference intervals for age 15 and older: Upright ......... 4.0 - 31.0 ng/dL Supine .......... Less than or equal to 16.0 ng/dL Unspecified ..... Less than or equal to 31.0 ng/dL Normal serum levels of aldosterone are dependent on the sodium intake and whether the patient is upright or supine. High sodium intake will tend to suppress serum aldosterone, whereas low sodium intake will elevate serum aldosterone. The reference intervals for serum aldosterone are based on normal sodium intake. Access complete set of age- and/or gender-specific reference intervals for this test in the [facility] Laboratory Test Directory ([facility]). Performed By: [facility] [address] [place] [address] Bench Worker: Bennett Singleton MD, PhD CLIA Number: [id number] Blood BLOOD SPECIMEN / Unknown Lab Venipuncture / Unknown 10/25/2024 10:48 AM CDT 10/25/2024 10:55 AM CDT Marixa Arroyo MD LAB - CHEMISTRY ORDERABLES Fi nal Result Performing Organization Address City/[facility]/ZIP Co de Phone Number [facility] ([facility]) [address] * (ABNORMAL) CBC W/O DIFFERENTIAL (10/25/2024 10:48 AM CDT) Only the most recent of5 resultswithin the time period is included. Pathologist [facility] WBC 8.3 4.0 - 10.7 x10E9/L 10/25/2024 11:27 AM [facility] RBC Count 3.78(L) 3.90 - 5.20 x10E12/L 10/25/2024 11:27 AM [facility] Hemoglobin 11.3(L) 11.9 - 15.8 g/dL 10/25/2024 11:27 AM [facility] Hematocrit 31.9(L) 34.8 - 46.1 % 10/25/2024 11:27 AM [facility] MCV 84.4 80.0 - 98.0 fL 10/25/2024 11:27 AM [facility] MCH 29.9 26.7 - 33.6 pg 10/25/2024 11:27 AM [facility] MCHC 35.4 31.7 - 36.3 g/dL 10/25/2024 11:27 AM [facility] RDW-CV 12.1 11.3 - 14.8 % 10/25/2024 11:27 AM [facility] Platelet Count 196 150 - 420 x10E9/L 10/25/2024 11:27 AM [facility] MPV 12.6(H) 7.8 - 11.4 fL 10/25/2024 11:27 AM [facility] Blood BLOOD SPECIMEN / Unknown Lab Venipuncture / Unknown 10/25/2024 10:48 AM CDT 10/25/2024 11:19 AM CDT us Marixa Arroyo MD LAB - HEMATOLOGY ORDERABLES F inal Result [facility] [address] [place] [phone], [facility] [phone] * (ABNORMAL) COMPREHENSIVE METABOLIC PANEL (10/25/2024 10:48 AM CDT) Only the most recent of5 resultswithin the time period is included. Pathologist [facility] BUN 15 7 - 26 mg/dL 10/25/2024 12:17 PM [facility] Creatinine 0.83 0.56 - 0.96 mg/dL 10/25/2024 12:17 PM [facility] Sodium 130(L) 136 - 145 mmol/L 10/25/2024 12:17 PM [facility] Potassium 4.5 3.5 - 4.5 mmol/L 10/25/2024 12:17 PM [facility] Chloride 103 98 - 107 mmol/L 10/25/2024 12:17 PM [facility] CO2 19(L) 22 - 29 mmol/L 10/25/2024 12:17 PM [facility] Glucose 365(H) 70 - 99 mg/dL 10/25/2024 12:17 PM [facility] Calcium 8.6 8.4 - 10.2 mg/dL 10/25/2024 12:17 PM [facility] Protein Total 6.5 6.0 - 8.3 g/dL 10/25/2024 12:17 PM [facility] Albumin 3.2(L) 3.4 - 5.0 g/dL 10/25/2024 12:17 PM [facility] Bilirubin Total 0.5 0.2 - 1.2 mg/dL 10/25/2024 12:17 PM [facility] Alkaline Phosphatase 117 40 - 150 U/L 10/25/2024 12:17 PM [facility] ALT 34 5 - 55 U/L 10/25/2024 12:17 PM [facility] AST 32 5 - 34 U/L 10/25/2024 12:17 PM [facility] Anion Gap 8 6 - 16 10/25/2024 12:17 PM [facility] BUN/Creatinine Ratio 18 7 - 23 10/25/2024 12:17 PM [facility] Osmolality Calculated 286 275 - 295 mOsm/kg 10/25/2024 12:17 PM [facility] Albumin/Globulin Ratio 1.0(L) 1.1 - 2.3 10/25/2024 12:17 PM [facility] eGFR by CKD-EPI 77(L) >=90 mL/min/1.7 3 m2 10/25/2024 12:17 PM CDT [facility] Comment:Estimated Glomerular Filtration Rate (eGFR) calculated using the CKD-EPI Creatinine Equation (2020), per the National Kidney Foundation and [place] Society of Nephrology recommendations. Blood BLOOD SPECIMEN / Unknown Lab Venipuncture / Unknown 10/25/2024 10:48 AM CDT 10/25/2024 11:08 AM CDT us Marixa Arroyo MD LAB - CHEMISTRY ORDERABLES Fi nal Result Performing Organization Address City/[facility]/ZIP Co de Phone Number [address] [address], [place] [phone] * PHOSPHORUS BLOOD (10/25/2024 10:48 AM CDT) Only the most recent of5 resultswithin the time period is included. Phosphorus 3.2 2.9 - 5.1 mg/dL 10/25/2024 12:09 PM CDT [facility] Blood BLOOD SPECIMEN / Unknown Lab Venipuncture / Unknown 10/25/2024 10:48 AM CDT 10/25/2024 11:08 AM CDT us Marixa Arroyo MD LAB - CHEMISTRY ORDERABLES Fi nal Result Performing Organization Address [facility] Co de Phone Number [address] [address], [place] [phone] * MAGNESIUM BLOOD (10/25/2024 10:48 AM CDT) Only the most recent of5 resultswithin the time period is included. Magnesium 1.8 1.6 - 2.6 mg/dL 10/25/2024 12:09 PM CDT [facility] Blood BLOOD SPECIMEN / Unknown Lab Venipuncture / Unknown 10/25/2024 10:48 AM CDT 10/25/2024 11:08 AM CDT us Marixa Arroyo MD LAB - CHEMISTRY ORDERABLES Fi nal Result [address] [address], [facility] [phone] * CORTISOL BLOOD AM (10/24/2024 5:05 PM CDT) Cortisol AM 9.3 3.7 - 19.4 ug/dL 10/24/2024 7:01 PM CDT [facility] Blood BLOOD SPECIMEN / Unknown Lab Venipuncture / Unknown 10/24/2024 5:05 PM CDT 10/24/2024 6:13 PM CDT Narrative [facility] - 10/24/2024 7:01 PM CDT Normal cortisol levels are generally highest in the morning hours and lowest from late evening through the skip tracer hours (8 PM to 4 AM). The PM measurements of cortisol run approximately one-half to one-third of the AM values. us Marixa Arroyo MD LAB - CHEMISTRY ORDERABLES Fi nal Result Performing Organization Address [facility] de Phone Number [address] [address], [facility] [phone] * US Kidney With Doppler Complete (10/23/2024 3:03 PM CDT) Anatomical Region Laterality Modality Abdomen Ultrasound 10/23/2024 11:1 0 PM CDT Impressions 10/23/2024 11:22 PM CDT IMPRESSION: Unremarkable ultrasound examination of the kidneys and urinary bladder. Color Doppler examination shows diffuse increase in resistive indicis of the bilateral kidneys concerning for underlying renal parenchymal disease. Correlate findings with clinical and lab data. 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 Right kidney: Size:11.0 x 4.8 x 4.2 cm. Echogenicity:Normal echotexture. Calculus:None. Hydronephrosis:None. Focal lesions:None. Perinephric space:Unremarkable. Upper ureter:Nondilated. Color Doppler examination:Renal artery and veins are patent. Doppler parameters of the renal arteries are: Proximal renal artery: Monophasic waveform . Peak systolic velocity: 150 cm/sec; RI 0.88. 2 renal arteries are identified distal to origin: Renal artery 1: Mid renal artery: Monophasic waveform . Peak systolic velocity: 77 cm/sec; RI 0.8. Renal artery at hilum: Monophasic waveform . Peak systolic velocity: 57 cm/sec; RI 0.8. Renal artery 2: Mid renal artery: Monophasic waveform . Peak systolic velocity: 94 cm/sec; RI 0.8. Renal artery at hilum: Monophasic waveform . Peak systolic velocity: 68 cm/sec; RI 0.8. Superior segmental artery: Monophasic waveform . Peak systolic velocity: 54 cm/sec; RI 0.7. Mid segmental artery: Monophasic waveform . Peak systolic velocity: 42 cm/sec; RI 0.8. Inferior segmental artery: Monophasic waveform . Peak systolic velocity: 61 cm/sec; RI 0.8. Arcuate artery at interpole: Peak systolic velocity: 24 cm/sec; RI 0.8 and AT 0.03 sec. Normal waveform. Left kidney: Size:10.2 x 3.7 x 3.5 cm. Echogenicity:Normal echotexture. Calculus:None. Hydronephrosis:None. Focal lesions:None. Perinephric space:Unremarkable. Upper ureter:Nondilated. Color Doppler examination:Renal artery and veins are patent. Doppler parameters of the renal arteries are: Proximal renal artery: Monophasic waveform . Peak systolic velocity: 119 cm/sec; RI 0.8. Mid renal artery: Monophasic waveform . Peak systolic velocity: 83 cm/sec; RI 0.8. Renal artery at hilum: Monophasic waveform . Peak systolic velocity: 46 cm/sec; RI 0.8. Superior segmental artery: Monophasic waveform . Peak systolic velocity: 58 cm/sec; RI 0.8.. Mid segmental artery: Monophasic waveform . Peak systolic velocity: 36 cm/sec; RI 0.8. Inferior segmental artery: Monophasic waveform . Peak systolic velocity: 27 cm/sec; RI 0.7. Arcuate artery at interpole: Peak systolic velocity: 20 cm/sec; RI 0.7 and AT 0.03 sec. Normal waveform. Retroperitoneum: Visualized aorta shows normal caliber, normal Doppler waveform and parameters Urinary bladder:Urinary bladder was normally distended. It is unremarkable. Others: No free fluid seen in the abdomen. 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 Right kidney: Size:11.0 x 4.8 x 4.2 cm. Echogenicity:Normal echotexture. Calculus:None. Hydronephrosis:None. Focal lesions:None. Perinephric space:Unremarkable. Upper ureter:Nondilated. Color Doppler examination:Renal artery and veins are patent. Doppler parameters of the renal arteries are: Proximal renal artery: Monophasic waveform . Peak systolic velocity: 150 cm/sec; RI 0.88. 2 renal arteries are identified distal to origin: Renal artery 1: Mid renal artery: Monophasic waveform . Peak systolic velocity: 77cm/sec; RI 0.8. Renal artery at hilum: Monophasic waveform . Peak systolic velocity: 57 cm/sec; RI 0.8. Renal artery 2: Mid renal artery: Monophasic waveform . Peak systolic velocity: 94cm/sec; RI 0.8. Renal artery at hilum: Monophasic waveform . Peak systolic velocity: 68 cm/sec; RI 0.8. Superior segmental artery: Monophasic waveform . Peak systolic velocity:54 cm/sec; RI 0.7. Mid segmental artery: Monophasic waveform . Peak systolic velocity: 42 cm/sec; RI 0.8. Inferior segmental artery: Monophasic waveform . Peak systolic velocity:61 cm/sec; RI 0.8. Arcuate artery at interpole: Peak systolic velocity: 24 cm/sec; RI 0.8and AT 0.03 sec. Normal waveform. Left kidney: Size:10.2 x 3.7 x 3.5 cm. Echogenicity:Normal echotexture. Calculus:None. Hydronephrosis:None. Focal lesions:None. Perinephric space:Unremarkable. Upper ureter:Nondilated. Color Doppler examination:Renal artery and veins are patent. Doppler parameters of the renal arteries are: Proximal renal artery: Monophasic waveform . Peak systolic velocity: 119 cm/sec; RI 0.8. Mid renal artery: Monophasic waveform . Peak systolic velocity: 83cm/sec; RI 0.8. Renal artery at hilum: Monophasic waveform . Peak systolic velocity: 46 cm/sec; RI 0.8. Superior segmental artery: Monophasic waveform . Peak systolic velocity:58 cm/sec; RI 0.8.. Mid segmental artery: Monophasic waveform . Peak systolic velocity: 36 cm/sec; RI 0.8. Inferior segmental artery: Monophasic waveform . Peak systolic velocity:27 cm/sec; RI 0.7. Arcuate artery at interpole: Peak systolic velocity: 20 cm/sec; RI 0.7and AT 0.03 sec. Normal waveform. Retroperitoneum: Visualized aorta shows normal caliber, normal Doppler waveform and parameters Urinary bladder:Urinary bladder was normally distended. It isunremarkable. Others: No free fluid seen in the abdomen. IMPRESSION: Unremarkable ultrasound examination of the kidneys and urinary bladder. Color Doppler examination shows diffuse increase in resistive indicis of the bilateral kidneys concerning for underlying renal parenchymaldisease. Correlate findings with clinical and lab data. > Interpreting Provider: Renato Auguste MD on 511:22 PM us Elsie Chapman MD US ORDERABLES Final Result * TSH REFLEX FREE T4 (10/23/2024 6:10 AM CDT) TSH 2.327 0.350 - 4.940 uIU/mL 10/23/2024 7:42 AM CDT [facility] Blood BLOOD SPECIMEN / Unknown Lab Venipuncture / Unknown 10/23/2024 6:10 AM CDT 10/23/2024 6:42 AM CDT us Elsie Chapman MD LAB - CHEMISTRY ORDERABLES F inal Result [facility] [address] [place] [address], [facility] [phone] * (ABNORMAL) HEMOGLOBIN A1C (10/23/2024 6:10 AM CDT) Only the most recent of2 resultswithin the time period is included. Hemoglobin A1c 7.1(H) <=5.6 % 10/23/2024 2:39 PM CDT [facility] Estimated Average Glucose 157 mg/dL 10/23/2024 2:39 PM CDT [facility] Comment: HbA1c Interpretation: Normal : < 5.7% Pre-diabetes: 5.7-6.4% Diabetes: Equal to or greater than 6.5% Test results diagnostic of diabetes should be repeated for confirmation. Treatment target values recommended by ADA and other clinical organizations should be used to evaluate metabolic control in patients. Reference: [place] Diabetes Association, Standards of Care in Diabetes -2020 In patients 70 years and older consider HbA1c target range of 7.0-7.5% (Reference: Tripp Harry et al. JAMDA. 2012) The Sebia assay for the measurement of HbA1c is a National Glycohemoglobin Standardization Program (NGSP) certified method. Blood BLOOD SPECIMEN / Unknown Lab Venipuncture / Unknown 10/23/2024 6:10 AM CDT 10/23/2024 6:42 AM CDT us Elsie Chapman MD LAB - CHEMISTRY ORDERABLES F inal Result [facility] [id number] [place] [address], [facility] [phone] * MRI Brain Wo Contrast (10/22/2024 5:10 PM CDT) Anatomical Region Laterality Modality Head Magnetic Resonan ce 10/22/2024 7:46 PM CDT Impressions 10/23/2024 9:10 AM CDT IMPRESSION: 1.There is a small, approximately 7 mm focus of abnormal diffusion and FLAIR hyperintensity without classic restricted diffusion located in the posterior left periventricular white matter adjacent to the trigone of the left lateral ventricle, (series 4, image 17), which is a nonspecific finding and could represent T2 shine-through, possibly a subacute infarcts or other lesion. Continued attention on follow-up, perhaps without and with contrast, is recommended. 2.No midline shift. Results of this exam were communicated with closed loop confirmation to Dr. Lowry by Dr. Andino on 10/23/2024 at 9:06 AM, with read back comprehension and verification. > Interpreting Provider: Jonathon Andino MD on 10/23/2024 9:10 AM Narrative 10/23/2024 9:10 AM CDT PROCEDURE: MRI BRAIN WO CONTRAST, DATE/TIME OF EXAM: 10/22/2024 5:11 PM, LOCATION [facility] INDICATION: I63.9: Cerebrovascular accident (CVA), unspecified mechanism (HCC) ADDITIONAL CLINICAL INFORMATION: Ordering Provider Reason For Exam: Stroke Technologist Note: Does the patient have a pacemaker or defibrillator?->No Does the patient have metal implants or stents?->No Additional: None. EXAMINATION: Magnetic resonance imaging (MRI) of the brain without contrast TECHNIQUE: MRI of the brain was performed without contrast according to standard protocol. COMPARISON: CT of the head from 10/21/2024. FINDINGS: No evidence of acute or chronic hemorrhage is identified. There is a small, approximately 7 mm focus of abnormal diffusion and FLAIR hyperintensity without classic restricted diffusion located in the posterior left periventricular white matter adjacent to the trigone of the left lateral ventricle, (series 4, image 17), which is a nonspecific finding and could represent T2 shine through possibly a subacute infarcts or other lesion. Continued attention on follow-up is recommended. Otherwise, no evidence of acute cerebral infarction is seen. There is mild cerebral volume loss with associated ex vacuo ventricular dilatation. No mass effect or midline shift is seen. Periventricular and subcortical white matter FLAIR hyperintensities likely represent sequelae of chronic small vessel ischemic disease. Old lacunar infarcts are present in the bilateral periventricular white matter, perhaps with a prominent focus of encephalomalacia in the left caudate body. There is a partially empty sella. Suspected minimal thinning of the corpus callosum. The corpus callosum and sella appear otherwise grossly unremarkable. The posterior fossa, brainstem, and craniocervical junction appear grossly unremarkable of note, there is subtle ill-defined FLAIR hyperintensity dorsal to the upper aspect of the fourth ventricle, (series 5, image 10), nonspecific and could be artifactual, although attention on follow-up is recommended. The patient is status post cataract extraction. 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 There is mild paranasal sinus disease. The mastoid air cells appear grossly clear. Normal flow voids are demonstrated in the carotid arteries and basilar artery. The calvarium and visualized cervical spine appear normal. Procedure Note Jonathon Andino MD - 10/23/2024 PROCEDURE: MRI BRAIN WO CONTRAST, DATE/TIME OF EXAM: 10/22/2024 5:11 PM, [place] [facility] [place] INDICATION: I63.9: Cerebrovascular accident (CVA), unspecified mechanism (HCC) ADDITIONAL CLINICAL INFORMATION: Ordering Provider Reason For Exam: Stroke Technologist Note: Does the patient have a pacemaker ordefibrillator?->No Does the patient have metal implants or stents?->No Additional: None. EXAMINATION: Magnetic resonance imaging (MRI) of the brain withoutcontrast TECHNIQUE: MRI of the brain was performed without contrast according to standard protocol. COMPARISON: CT of the head from 10/21/2024. FINDINGS: No evidence of acute or chronic hemorrhage is identified. There is asmall, approximately 7 mm focus of abnormal diffusion and FLAIR hyperintensity without classic restricted diffusion located in the posterior left periventricular white matter adjacent to the trigone of the left lateral ventricle, (series 4, image 17), which is a nonspecific finding andcould represent T2 shine through possibly a subacute infarcts or other lesion. Continued attention on follow-up is recommended. Otherwise, no evidenceof acute cerebral infarction is seen. There is mild cerebral volume losswith associated ex vacuo ventricular dilatation. No mass effect or midlineshift is seen. Periventricular and subcortical white matter FLAIR hyperintensities likely represent sequelae of chronic small vesselischemic disease. Old lacunar infarcts are present in the bilateralperiventricular white matter, perhaps with a prominent focus of encephalomalacia in the left caudate body. There is a partially empty sella. Suspected minimal thinning of the corpus callosum. The corpus callosum and sella appear otherwise grossly unremarkable. The posterior fossa, brainstem, and craniocervical junction appear grossly unremarkable of note, there is subtle ill-defined FLAIR hyperintensity dorsal to the upper aspect ofthe fourth ventricle, (series 5, image 10), nonspecific and could be artifactual, although attention on follow-up is recommended. The patient is status post cataract extraction. 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 There is mild paranasal sinus disease. The mastoid air cells appear grossly clear.Normal flow voids are demonstrated in the carotid arteries and basilar artery.The calvarium and visualized cervical spine appear normal. IMPRESSION: 1.There is a small, approximately 7 mm focus of abnormal diffusion and FLAIR hyperintensity without classic restricted diffusion located in the posterior left periventricular white matter adjacent to the trigone ofthe left lateral ventricle, (series 4, image 17), which is a nonspecific finding and could represent T2 shine-through, possibly a subacuteinfarcts or other lesion. Continued attention on follow-up, perhaps without andwith contrast, is recommended. 2.No midline shift. Results of this exam were communicated with closed loop confirmation toDr. Lowry by Dr. Andino on 10/23/2024 at 9:06 AM, with read backcomprehension and verification. > Interpreting Provider: Jonathon Andino MD on 10/23/2024 9:10 AM us Matt Ferguson MD MR ORDERABLES Final Result * ECHO COMPLETE W CONTRAST W BUBBLE STUDY (10/22/2024 1:10 PM CDT) IVSd 2D 1.374 cm SSM CV FUJ I PACS LVIDd 4.261 cm SSM CV FUJ I PACS LVIDs 2.681 cm SSM CV FUJ I PACS LVOT diam 2.019 cm SSM CV FUJ I PACS LVPWd 1.075 cm SSM CV FUJ I PACS LV biplane EF 67.219 % SSM CV FUJI PACS LV A2C EF 67.43 % SSM CV FUJ I PACS LV A4C EF 68.089 % SSM CV FUJ I PACS LV EDV A2C 116.027 ml SSM CV FU JI PACS LV EDV A4C 108.008 ml SSM CV FU JI PACS LV ESV A2C 37.791 ml SSM CV FU JI PACS LV ESV A4C 34.466 ml SSM CV FU JI PACS LVOT pk grad 3.304 mmHg SSM CV FUJI PACS LVOT pk gurmeet 90.881 cm/s SSM CV F UJI PACS LVOT VTI 21.368 cm SSM CV FUJ I PACS RVOT pk gurmeet 90.524 cm/s SSM CV F UJI PACS RVOT VTI 19.032 cm SSM CV FUJ I PACS LA size 3.569 cm SSM CV FUJ I PACS AV area pk gurmeet 2.249 cm SSM CV FUJI PACS AV area cont VTI 2.435 cm SSM CV FUJI PACS AV pk grad 6.699 mmHg SSM CV FU JI PACS AV mn grad 3.644 mmHg SSM CV FU JI PACS AV pk gurmeet 129.417 cm/s SSM CV FUJ I PACS AV VTI 28.102 cm SSM CV FUJ I PACS MV A pk gurmeet 81.779 cm/s SSM CV F UJI PACS MV E pk gurmeet 122.109 cm/s SSM CV F UJI PACS MV E' lateral gurmeet 4.69 cm/s SS M CV FUJI PACS MV mn grad 2.662 mmHg SSM CV FU JI PACS MV VTI 32.955 cm SSM CV FUJ I PACS PV pk gurmeet 87.305 cm/s SSM CV FUJ I PACS PV VTI 18.668 cm SSM CV FUJ I PACS Ascending aorta 2.876 cm SSM CV FUJI PACS AV area index 1.146 cm /m SSM CV FUJI PACS Dimensionless Index 0.76 unitless SSM CV FUJI PACS Myocardial strain charge 2 unitless SSM CV FUJI PACS Anatomical Region Laterality Modality Ultrasound 10/22/2024 12:3 7 PM CDT Narrative 10/22/2024 4:00 PM CDT Summary * The left ventricle is normal in size, with normal systolic function and an estimated ejection fraction of 67 % by biplane method of disks. Left ventricular wall motion is normal. * The left ventricular mass is normal with concentric remodeling. * Right ventricle is normal in size with normal systolic function. * Bubble study was essentially non-diagnostic due to poor image quality. * No hemodynamically significant valve disease. Patient Info Name: Maine Calvo Age: 69 years : 1955 Gender: Female Ht: 65 in Wt: 209 lb BSA: 2.12 m2 HR: 66 bpm BP: 185 / 72 mmHg Exam Date: 10/22/2024 12:37 PM Patient Status: I/P Study Site: [facility] Primary Location: [facility] Technical Quality: Fair Exam Type: ECHO COMPLETE W CONTRAST W BUBBLE STUDY Indications I63.9 - Cerebrovascular accident (CVA), unspecified mechanism (HCC) Procedure(s) * A complete 2D, color Doppler, spectral Doppler, and M-Mode transthoracic echocardiogram was performed. * An Ultrasound Enhancing Agent (UEA) was utilized to enhance endocardial definition, opacify the left ventricle and further assess left ventricular function and wall motion. Contrast/Agitated Saline Contrast / Saline: Definity Amount: 1.50 ml Reaction to Contrast: no Contrast / Saline: Agitated Saline Amount: 10.00 ml Reaction to Contrast: no Reason for Technically Difficult Study: lung interference, body habitus Staff Referring Physician: Matt Ferguson Ordering Provider: Matt Ferguson Attending Physician: Matt Ferguson Specimen Accessioner: Vel Doyle Left Ventricle The left ventricle is normal in size. Left ventricular systolic function is normal with an estimated ejection fraction of 67 % by biplane method of disks. The left ventricular mass is normal with concentric remodeling. Left ventricular segmental wall motion is normal. The left ventricular diastolic function is indeterminate. Right Ventricle The right ventricle is normal in size. Right ventricular systolic function is normal. Left Atrium The left atrium is normal in size. Right Atrium The right atrium is not well visualized, but appears grossly normal in size. Atrial Septum Interatrial septum not well visualized by 2D and color Doppler imaging. Bubble study was essentially non-diagnostic due to poor image quality. Aortic Valve The aortic valve is trileaflet. There is no aortic valve stenosis. There is no aortic valve regurgitation. Pulmonic Valve The pulmonic valve is not well visualized, but grossly normal. There is no pulmonic valve stenosis. There is no significant pulmonic regurgitation. Mitral Valve The mitral valve is grossly normal. There is no mitral valve stenosis. There is trace mitral valve regurgitation. Tricuspid Valve The tricuspid valve is grossly normal. There is trace tricuspid valve regurgitation. Insufficient tricuspid regurgitation jet to estimate PASP. Inferior Vena Cava Normal inferior vena cava with > 50% collapse upon inspiration consistent with elevated right atrial pressure, 3 mmHg. Pericardium/Pleural There is a trivial pericardial effusion. Aorta The aortic root at the sinus of Valsalva is normal in size. The ascending aorta is normal in size. Measurements Left Ventricular Outflow Tract Name Value Normal LVOT 2D LVOT Diameter 2.0 cm LVOT Area 3.2 cm2 LVOT Doppler LVOT Peak Velocity 0.9 m/s LVOT Peak Gradient 3 mmHg LVOT Mean Velocity 64.53 cm/s LVOT Mean Gradient 2 mmHg LVOT VTI 21.4 cm LVOT VTI/AV VTI Ratio 0.8 LVOT Stroke Volume 68 ml LVOT Stroke Volume Index 32 ml/m2 35-58 LVOT CO 4.5 l/min LVOT CI 2.1 l/min/m2 Pulmonic Valve Name Value Normal RVOT Doppler RVOT Peak Velocity 0.9 m/s RVOT Peak Gradient 3 mmHg RVOT Mean Gradient 2 mmHg PV Doppler PV Peak Velocity 0.9 m/s PV Peak Gradient 3 mmHg PV Mean Gradient 2 mmHg Mitral Valve Name Value Normal MV Doppler MV Peak Gradient 7 mmHg MV Mean Gradient 3 mmHg MV DI (VTI) 1.54 MV PHT 61 ms MV Area (PHT) 3.62 cm2 4.00-5.00 MV Area (Cont Eq VTI) 2.08 cm2 MV Diastolic Function MV E Peak Velocity 1.2 m/sec MV A Peak Velocity 0.8 m/sec MV E/A 1.5 MV Decel Time (PW) 210 ms MV Annular TDI MV Septal e' Velocity 4 cm/s >=8 MV E/e' (Septal) 29 <=8 MV Lateral e' Velocity 5 cm/s >=10 MV E/e' (Lateral) 26 <=8 MV e' Average 4 cm/s MV E/e' (Average) 28 Tricuspid Valve Name Value Normal Estimated PAP/RSVP RA Pressure 3 mmHg <=5 TV Annular TDI TV Lateral Esme s' Velocity 16 cm/s 10-19 Aorta Name Value Normal Ascending Aorta Asc Ao Diameter 2.9 cm 1.9-3.5 Asc Ao Diameter Index 1.4 cm/m2 1.0-2.2 Aortic Valve Name Value Normal AV 2D/MM AV Cusp Sep (MM) 1.5 cm AV Doppler AV Peak Velocity 1.29 m/s AV Peak Gradient 7 mmHg AV Mean Gradient 4 mmHg AV VTI 28 cm AV Area (Cont Eq VTI) 2.43 cm2 >=2.00 AV Area (Cont Eq Gurmeet) 2.25 cm2 AV DI (VTI) 0.76 AV DI (Gurmeet) 0.70 AV Regurgitation 2D LVOT Area 3.20 cm2 Ventricles Name Value Normal LV Dimensions 2D/MM IVS Diastolic Thickness (2D) 1.4 cm 0.6-0.9 LVID Diastole (2D) 4.3 cm 3.8-5.2 LVPW Diastolic Thickness (2D) 1.1 cm 0.6-0.9 LVID Systole (2D) 2.7 cm 2.2-3.5 LV Mass (2D Cubed) 188 g 67-162 LV Mass Index (2D Cubed) 88 g/m2 43-95 Relative Wall Thickness (2D) 0.50 <=0.42 LV Fractional Shortening/Ejection Fraction 2D/MM LV Fractional Shortening (2D) 37 % 27-45 LV EF (2D Teicholz) 67 % 54-74 LV Diastolic Volume (4C MOD) 108 ml LV EF (4C MOD) 68 % LV Diastolic Volume (2C MOD) 116 ml LV EF (2C MOD) 67 % LV Diastolic Volume (BP MOD) 112 ml 46-106 LV Diastolic Volume Index (BP MOD) 53 ml/m2 29-61 LV Systolic Volume (BP MOD) 37 ml 14-42 LV Systolic Volume Index (BP MOD) 17 ml/m2 8-24 LV EF (BP MOD) 67 % 54-74 LV Diastolic Length (4C) 7.7 cm LV Systolic Length (4C) 6.6 cm LV Stroke Volume (4C MOD) 74 ml Atria Name Value Normal LA Dimensions LA Dimension (2D) 3.6 cm 2.7-3.8 LA Dimen Index (2D) 1.7 cm/m2 Report Signatures Finalized by Brody Andrea on 10/22/2024 04:00 PM Procedure Note Brody Andrea MD - 10/22/2024 Summary * The left ventricle is normal in size, with normal systolic functionand an estimated ejection fraction of 67 % by biplane method of disks. Left ventricular wall motion is normal. * The left ventricular mass is normal with concentric remodeling. * Right ventricle is normal in size with normal systolic function. * Bubble study was essentially non-diagnostic due to poor imagequality. * No hemodynamically significant valve disease. Patient Info Name: Maine Calvo Age: 69 years : 1955 Gender: Female Ht: 65 in Wt: 209 lb BSA: 2.12 m2 HR: 66 bpm BP: 185 / 72 mmHg Exam Date: 10/22/2024 12:37 PM Patient Status: I/P Study Site: [facility] Primary Location: [facility] [place] EStudy Info Technical Quality: Fair Exam Type: ECHO COMPLETE W CONTRAST W BUBBLE STUDY Indications I63.9 - Cerebrovascular accident (CVA), unspecified mechanism (HCC) Procedure(s) * A complete 2D, color Doppler, spectral Doppler, and M-Modetransthoracic echocardiogram was performed. * An Ultrasound Enhancing Agent (UEA) was utilized to enhanceendocardial definition, opacify the left ventricle and further assess leftventricular function and wall motion. Contrast/Agitated Saline Contrast / Saline: Definity Amount: 1.50 ml Reaction to Contrast: no Contrast / Saline: Agitated Saline Amount: 10.00 ml Reaction to Contrast: no Reason for Technically Difficult Study: lung interference, bodyhabitus Staff Referring Physician: Matt Ferguson Ordering Provider: Matt Ferguson Attending Physician: Matt Ferguson Specimen Accessioner: Vel oDyle Left Ventricle The left ventricle is normal in size. Left ventricular systolic functionis normal with an estimated ejection fraction of 67 % by biplane method ofdisks. The left ventricular mass is normal with concentric remodeling. Left ventricular segmental wall motion is normal. The left ventriculardiastolic function is indeterminate. Right Ventricle The right ventricle is normal in size. Right ventricular systolicfunction is normal. Left Atrium The left atrium is normal in size. Right Atrium The right atrium is not well visualized, but appears grossly normal insize. Atrial Septum Interatrial septum not well visualized by 2D and color Dopplerimaging. Bubble study was essentially non-diagnostic due to poor image quality. Aortic Valve The aortic valve is trileaflet. There is no aortic valve stenosis. Thereis no aortic valve regurgitation. Pulmonic Valve The pulmonic valve is not well visualized, but grossly normal. There isno pulmonic valve stenosis. There is no significant pulmonic regurgitation. Mitral Valve The mitral valve is grossly normal. There is no mitral valve stenosis.There is trace mitral valve regurgitation. Tricuspid Valve The tricuspid valve is grossly normal. There is trace tricuspid valve regurgitation. Insufficient tricuspid regurgitation jet to estimatePASP. Inferior Vena Cava Normal inferior vena cava with > 50% collapse upon inspirationconsistent with elevated right atrial pressure, 3 mmHg. Pericardium/Pleural There is a trivial pericardial effusion. Aorta The aortic root at the sinus of Valsalva is normal in size. Theascending aorta is normal in size. Measurements Left Ventricular Outflow Tract Name Value Normal LVOT 2D LVOT Diameter 2.0 cm LVOT Area 3.2 cm2 LVOT Doppler LVOT Peak Velocity 0.9 m/s LVOT Peak Gradient 3 mmHg LVOT Mean Velocity 64.53 cm/s LVOT Mean Gradient 2 mmHg LVOT VTI 21.4 cm LVOT VTI/AV VTI Ratio 0.8 LVOT Stroke Volume 68 ml LVOT Stroke Volume Index 32 ml/m2 35-58 LVOT CO 4.5 l/min LVOT CI 2.1 l/min/m2 Pulmonic Valve Name Value Normal RVOT Doppler RVOT Peak Velocity 0.9 m/s RVOT Peak Gradient 3 mmHg RVOT Mean Gradient 2 mmHg PV Doppler PV Peak Velocity 0.9 m/s PV Peak Gradient 3 mmHg PV Mean Gradient 2 mmHg Mitral Valve Name Value Normal MV Doppler MV Peak Gradient 7 mmHg MV Mean Gradient 3 mmHg MV DI (VTI) 1.54 MV PHT 61 ms MV Area (PHT) 3.62 cm2 4.00-5.00 MV Area (Cont Eq VTI) 2.08 cm2 MV Diastolic Function MV E Peak Velocity 1.2 m/sec MV A Peak Velocity 0.8 m/sec MV E/A 1.5 MV Decel Time (PW) 210 ms MV Annular TDI MV Septal e' Velocity 4 cm/s >=8 MV E/e' (Septal) 29 <=8 MV Lateral e' Velocity 5 cm/s >=10 MV E/e' (Lateral) 26 <=8 MV e' Average 4 cm/s MV E/e' (Average) 28 Tricuspid Valve Name Value Normal Estimated PAP/RSVP RA Pressure 3 mmHg <=5 TV Annular TDI TV Lateral Esme s' Velocity 16 cm/s 10-19 Aorta Name Value Normal Ascending Aorta Asc Ao Diameter 2.9 cm 1.9-3.5 Asc Ao Diameter Index 1.4 cm/m2 1.0-2.2 Aortic Valve Name Value Normal AV 2D/MM AV Cusp Sep (MM) 1.5 cm AV Doppler AV Peak Velocity 1.29 m/s AV Peak Gradient 7 mmHg AV Mean Gradient 4 mmHg AV VTI 28 cm AV Area (Cont Eq VTI) 2.43 cm2 >=2.00 AV Area (Cont Eq Gurmeet) 2.25 cm2 AV DI (VTI) 0.76 AV DI (Gurmeet) 0.70 AV Regurgitation 2D LVOT Area 3.20 cm2 Ventricles Name Value Normal LV Dimensions 2D/MM IVS Diastolic Thickness (2D) 1.4 cm 0.6-0.9 LVID Diastole (2D) 4.3 cm 3.8-5.2 LVPW Diastolic Thickness (2D) 1.1 cm 0.6-0.9 LVID Systole (2D) 2.7 cm 2.2-3.5 LV Mass (2D Cubed) 188 g 67-162 LV Mass Index (2D Cubed) 88 g/m2 43-95 Relative Wall Thickness (2D) 0.50 <=0.42 LV Fractional Shortening/Ejection Fraction 2D/MM LV Fractional Shortening (2D) 37 % 27-45 LV EF (2D Teicholz) 67 % 54-74 LV Diastolic Volume (4C MOD) 108 ml LV EF (4C MOD) 68 % LV Diastolic Volume (2C MOD) 116 ml LV EF (2C MOD) 67 % LV Diastolic Volume (BP MOD) 112 ml 46-106 LV Diastolic Volume Index (BP MOD) 53 ml/m2 29-61 LV Systolic Volume (BP MOD) 37 ml 14-42 LV Systolic Volume Index (BP MOD) 17 ml/m2 8-24 LV EF (BP MOD) 67 % 54-74 LV Diastolic Length (4C) 7.7 cm LV Systolic Length (4C) 6.6 cm LV Stroke Volume (4C MOD) 74 ml Atria Name Value Normal LA Dimensions LA Dimension (2D) 3.6 cm 2.7-3.8 LA Dimen Index (2D) 1.7 cm/m2 Report Signatures Finalized by Brody Andrea on 10/22/2024 04:00 PM us Matt Ferguson MD ECHO CUPID Final Result * CARDIAC EKG ORDER (10/22/2024 11:27 AM CDT) Narrative 10/22/2024 11:27 AM CDT Ordered by an unspecified provider. us Scanned Document CARDIAC SERVICES ORDERABLES Fin al Result * CT HEAD NON CONTRAST (10/21/2024 11:24 PM CDT) Anatomical Region Laterality Modality Head Computed Tomogra phy 10/22/2024 12:2 8 AM CDT Impressions 10/22/2024 12:37 AM CDT IMPRESSION: 1. Accounting for the presence of intravenous contrast, no definite evidence of acute intracranial process. 2. Chronic small vessel ischemic disease of the brain with cerebral volume loss. Small chronic lacunar infarcts in the caudate nucleus bilaterally. The report was drafted by Perla Bueno MD (educational institution president) 10/22/2024 12:29 AM. I, Cullen Pro MD have personally reviewed and interpreted this examination/study. > Interpreting Provider: Cullen Pro MD on 10/22/2024 12:37 AM Narrative 10/22/2024 12:37 AM CDT PROCEDURE: CT HEAD WO CONTRAST, DATE/TIME OF EXAM: 10/21/2024 11:24 PM, LOCATION [facility] [place] INDICATION: I63.9: Cerebrovascular accident (CVA), unspecified mechanism (HCC) ADDITIONAL CLINICAL INFORMATION: Ordering Provider Reason For Exam: TNK follow up TECHNIQUE: CT of the head was performed without contrast according to standard protocol. CONTRAST: None COMPARISON: CT head brain stroke from 10/20/2024. FINDINGS: The study is degraded by the residual intravenous contrast. Accounting for the presence of intravascular contrast which reduces the sensitivity to detect subtle intracranial hemorrhage, no distinct acute intracranial hemorrhage, or intra- or extra-axial fluid collections are identified. There is mild to moderate cerebral volume loss with associated ex vacuo ventricular dilatation. Small chronic lacunar infarcts in the caudate nucleus bilaterally. The basal cisterns are patent. No mass effect or midline shift is seen. The last-white matter differentiation is normal. Other than mild paranasal sinus disease, the visualized portions of the orbits, paranasal sinuses, and mastoids appear normal. No acute calvarial fracture is identified. Procedure Note Cullen Pro MD - 10/22/2024 PROCEDURE: CT HEAD WO CONTRAST, DATE/TIME OF EXAM: 10/21/2024 11:24 PM, LOCATION [facility] [place] INDICATION: I63.9: Cerebrovascular accident (CVA), unspecified mechanism (HCC) ADDITIONAL CLINICAL INFORMATION: Ordering Provider Reason For Exam: TNK follow up TECHNIQUE: CT of the head was performed without contrast according to standard protocol. CONTRAST: None COMPARISON: CT head brain stroke from 10/20/2024. FINDINGS: The study is degraded by the residual intravenous contrast. Accounting for the presence of intravascular contrast which reduces the sensitivity to detect subtle intracranial hemorrhage, no distinct acute intracranial hemorrhage, or intra- or extra-axial fluid collections are identified. There is mild to moderate cerebral volume loss withassociated ex vacuo ventricular dilatation. Small chronic lacunar infarcts in the caudate nucleus bilaterally. The basal cisterns are patent. No masseffect or midline shift is seen. The last-white matter differentiation isnormal. Other than mild paranasal sinus disease, the visualized portions of the orbits, paranasal sinuses, and mastoids appear normal. No acute calvarial fracture is identified. IMPRESSION: 1. Accounting for the presence of intravenous contrast, no definite evidence of acute intracranial process. 2. Chronic small vessel ischemic disease of the brain with cerebralvolume loss. Small chronic lacunar infarcts in the caudate nucleus bilaterally. The report was drafted by Perla Bueno MD (educational institution president) 10/22/2024 12:29 AM. I, Cullen Pro MD have personally reviewed and interpreted this examination/study. > Interpreting Provider: Cullen Pro MD on 10/22/2024 12:37 AM Matt Ferguson MD CT ORDERABLES Final Result * (ABNORMAL) URINALYSIS REFLEX TO MICROSCOPIC NO CULTURE (10/21/2024 10:00 AM CDT) Color UA Yellow Yellow, Straw 10/21/2024 10:21 AM [facility] Clarity UA Turbid(A) Clear 10/21/2024 10:21 AM [facility] Glucose UA Normal Normal 10/21/2024 10:21 AM [facility] Bilirubin UA Negative Negative 10/21/2024 10:21 AM [facility] Ketone UA Negative Negative 10/21/2024 10:21 AM [facility] Specific [place] UA 1.041(H) 1.005 - 1.030 10/21/2024 10:21 AM [facility] Blood UA Trace(A) Negative 10/21/2024 10:21 AM [facility] pH UA 5.5 5.0 - 8.0 10/21/2024 10:21 AM [facility] Protein UA Trace(A) Negative 10/21/2024 10:21 AM [facility] Urobilinogen UA Normal Normal mg/dL 10/21/2024 10:21 AM [facility] Nitrite UA Negative Negative 10/21/2024 10:21 AM [facility] Leukocyte Esterase UA 500 PHILIP/uL(A) Negative 10/21/2024 10:21 AM [facility] RBC UA 21-50(A) 0 - 5 # /hpf 10/21/2024 10:21 AM [facility] WBC UA >100(A) 0 - 5 # /hpf 10/21/2024 10:21 AM [facility] Bacteria UA 2+(A) None Seen 10/21/2024 10:21 AM [facility] Squamous Epithelial Cells 0-2 0 - 5 /hpf 10/21/2024 10:21 AM [facility] Mucus UA 1+ /LPF 10/21/2024 10:21 AM [facility] Urine URINE SPECIMEN OBTAINED BY CLEAN CATCH PROCEDURE / Unknown Collection / Unknown 10/21/2024 10:00 AM CDT 10/21/2024 10:08 AM [facility] us Matt Ferguson MD LAB - URINALYSIS ORDERABLES F inal Result Performing Organization Address [facility]/ZIP Co de Phone Number [facility] [facility] [address] [place] [address], [facility] [phone] * EKG 12-LEAD - If not done in ED (10/21/2024 1:01 AM CDT) Ventricular Rate 74 BPM SL MUSE Atrial Rate 74 BPM [facility] MUSE P-R Interval 198 ms [facility] MUSE QRS Duration ms 82 ms H MUSE Q-T Interval ms 406 ms [facility] MUSE QTC Calculation (Bezet) 450 ms SL MUSE Calculated P Lacrosse 34 degrees [facility] MUSE Calculated R Lacrosse -40 degrees SL MUSE Calculated T Lacrosse 20 degrees [facility] MUSE Interpretation EKG NORMAL SINUS RHYTHM LEFT AXIS DEVIATION MINIMAL VOLTAGE CRITERIA FOR LVH, MAY BE NORMAL VARIANT ( R in aVL ) ABNORMAL ECG NO PREVIOUS ECGS AVAILABLE Confirmed by KUNAL DONG MD ([id number]) on 10/21/2024 2:15:32 PM [facility] MUSE 10/21/2024 1:01 AM CDT 10/21/2024 2:15 PM CDT us Matt Ferguson MD ECG ORDERABLES Edited Result - Final Performing Organization Address [facility] de Phone Number [facility] [place] * TROPONIN-I HIGH SENSITIVE REFLEX 1HOUR (10/20/2024 11:56 PM CDT) Pathologist [facility] Troponin I High Sensitive 9 <=14 ng/L 10/21/2024 12:39 AM CDT [facility] Delta Troponin I HS 10/21/2024 12:39 AM CDT [facility] Comment:Delta value intentio adelso not calculated. Baseline to 1 hour specimen collection interval exceeded. Blood BLOOD SPECIMEN / Unknown Venipuncture / Unknown 10/20/2024 11:56 PM CDT 10/21/2024 12:02 AM CDT us Matt Ferguson MD LAB - CHEMISTRY ORDERABLES Fi nal Result Performing Organization Address [facility]/ZIP Co de Phone Number [facility] [address] [place] [address], [facility] [phone] * LIPID PROFILE (10/20/2024 11:22 PM CDT) Cholesterol Total 132 <200 mg/dL 10/21/2024 1:05 AM T [facility] HDL 43 >40 mg/dL 10/21/2024 1:05 AM T [facility] Comment: ATP III Classification of HDL Cholesterol: <40 mg/dL: Considered a major risk factor. >60 mg/dL: Considered a negative risk factor. LDL Calculated 59 <100 mg/dL 10/21/2024 1:05 AM T [facility] Comment: ATP III Classification of LDL Cholesterol: <100 mg/dL: Optimal 100 - 129 mg/dL: Near Optimal/Above Optimal 130 - 159 mg/dL: Borderline High 160 - 189 mg/dL: High >190 mg/dL: Very High LDL is calculated using the Friedewald equation. Triglycerides 148 <150 mg/dL 10/21/2024 1:05 AM T [facility] Comment: ATP III Classification of Triglycerides: <150 mg/dL: Normal 150 - 199 mg/dL: Borderline High 200 - 400 mg/dL: High >500 mg/dL: Very High Blood BLOOD SPECIMEN / Unknown Venipuncture / Unknown 10/20/2024 11:22 PM CDT 10/20/2024 11:52 PM CDT Matt Ferguson MD LAB - CHEMISTRY ORDERABLES Fi nal Result [facility] [address] [place] [address], [facility] [phone] * CT Angio Brain Neck Stroke (10/20/2024 11:15 PM CDT) Anatomical Region Laterality Modality Head Computed Tomogra phy 10/20/2024 11:2 9 PM CDT Impressions 10/20/2024 11:44 PM CDT IMPRESSION: 1. No large arterial occlusions or significant stenoses identified in the head or neck. > Interpreting Provider: Cullen Pro MD on 10/20/2024 11:44 PM Narrative 10/20/2024 11:44 PM CDT PROCEDURE: CT ANGIO BRAIN NECK STROKE, DATE/TIME OF EXAM: 10/20/2024 11:16 PM, LOCATION [facility] INDICATION: I63.9: Cerebrovascular accident (CVA), unspecified mechanism (HCC) ADDITIONAL CLINICAL INFORMATION: Ordering Provider Reason For Exam: Technologist Note: Additional: EXAMINATION: 1. Computed tomographic (CT) angiography of the head with contrast 2. CT angiography of the neck with contrast TECHNIQUE: CT angiography of the head and neck was obtained after the uneventful administration of intravenous contrast. Three dimensional postprocessing was performed by the technologist and sent to the workstation for review. CONTRAST: IOPAMIDOL 76 % IV SOLN:75 mL COMPARISON: Comparison is made with a study from earlier today. FINDINGS: Non-angiographic findings: Please refer to the report of a concurrent noncontrast head CT for detailed intracranial findings. No soft tissue abnormalities are identified in the neck. Moderate multilevel degenerative disc and joint disease is noted in the cervical spine. Angiographic findings: Neck: There is atherosclerotic disease of the aortic arch. The configuration of the brachiocephalic vessels is typical. There is scattered atherosclerotic calcification of the innominate and subclavian arteries. There is atherosclerotic disease in the right carotid bifurcation and origin of the right internal carotid artery with less than 50 percent focal stenosis. The right common and internal carotid arteries otherwise appear patent. There is atherosclerotic disease in the left carotid bifurcation and origin of the left internal carotid artery with less than 50 percent focal stenosis. The left common and internal carotid arteries otherwise appear patent. The cervical vertebral arteries are patent. Head: There is atherosclerotic disease involving the distal internal carotid arteries without significant focal stenosis. The anterior cerebral arteries are patent. The middle cerebral arteries are patent. The posterior cerebral arteries are patent with origin of the right posterior cerebral artery. The distal vertebral arteries are patent. The basilar artery is patent. No aneurysms, spot sign, or signs of a high flow vascular malformation are identified. The cerebral dural venous sinuses are patent. Procedure Note Cullen Pro MD - 10/20/2024 PROCEDURE: CT ANGIO BRAIN NECK STROKE, DATE/TIME OF EXAM: 1:16 PM, LOCATION [facility] INDICATION: I63.9: Cerebrovascular accident (CVA), unspecified mechanism (HCC) ADDITIONAL CLINICAL INFORMATION: Ordering Provider Reason For Exam: Technologist Note: Additional: EXAMINATION: 1. Computed tomographic (CT) angiography of the head with contrast 2. CT angiography of the neck with contrast TECHNIQUE: CT angiography of the head and neck was obtained after the uneventful administration of intravenous contrast. Three dimensional postprocessing was performed by the technologist and sent to the workstation for review. CONTRAST: IOPAMIDOL 76 % IV SOLN:75 mL COMPARISON: Comparison is made with a study from earlier today. FINDINGS: Non-angiographic findings: Please refer to the report of a concurrent noncontrast head CT fordetailed intracranial findings. No soft tissue abnormalities are identified in the neck. Moderate multilevel degenerative disc and joint disease is noted in the cervical spine. Angiographic findings: Neck: There is atherosclerotic disease of the aortic arch. The configurationof the brachiocephalic vessels is typical. There is scatteredatherosclerotic calcification of the innominate and subclavian arteries. There is atherosclerotic disease in the right carotid bifurcation and origin ofthe right internal carotid artery with less than 50 percent focal stenosis.The right common and internal carotid arteries otherwise appear patent.There is atherosclerotic disease in the left carotid bifurcation and origin of the left internal carotid artery with less than 50 percent focalstenosis. The left common and internal carotid arteries otherwise appear patent.The cervical vertebral arteries are patent. Head: There is atherosclerotic disease involving the distal internal carotid arteries without significant focal stenosis. The anterior cerebralarteries are patent. The middle cerebral arteries are patent. The posterior cerebral arteries are patent with origin of the right posterior cerebral artery. The distal vertebral arteries are patent. The basilar artery is patent. No aneurysms, spot sign, or signs of a high flowvascular malformation are identified. The cerebral dural venous sinuses are patent. IMPRESSION: 1. No large arterial occlusions or significant stenoses identified inthe head or neck. > Interpreting Provider: Cullen Pro MD on 10/20/2024 11:44 PM Matt Ferguson MD CT ORDERABLES Final Result * TROPONIN-I HIGH SENSITIVE BASELINE + 1HR (10/20/2024 11:13 PM CDT) Troponin I High Sensitive 8 <=14 ng/L 10/21/2024 12:11 AM CDT [facility] Blood BLOOD SPECIMEN / Unknown Venipuncture / Unknown 10/20/2024 11:13 PM CDT 10/20/2024 11:52 PM CDT us Matt Ferguson MD LAB - CHEMISTRY ORDERABLES Fi nal Result [place] [id number] [place] [address], [facility] [phone] * XR CHEST 1VW PORTABLE (10/20/2024 11:10 PM CDT) Anatomical Region Laterality Modality Chest Digital Radiogra phy 10/21/2024 5:49 AM CDT Impressions 10/21/2024 5:50 AM CDT IMPRESSION: No acute findings in the chest. > Interpreting Provider: Renato Auguste MD on 10/21/2024 5:50 AM Narrative 10/21/2024 5:50 AM CDT PROCEDURE: XR CHEST 1VW PORTABLE DATE/TIME OF EXAM: 10/20/2024 11:54 PM CLINICAL INFORMATION: None relevant/not provided if blank. Indication: I63.9: Cerebrovascular accident (CVA), unspecified mechanism (HCC) Additional History: COMPARISON: None. FINDINGS: Lungs are moderately expanded. No acute consolidations or air space opacities are seen. No pleural effusion or pneumothorax seen. Cardiac and mediastinal opacities and outline are normally maintained. Degenerative changes noted in the spine. Procedure Note Renato Auguste MD - 10/21/2024 PROCEDURE: XR CHEST 1VW PORTABLE DATE/TIME OF EXAM: 10/20/2024 11:54 PM CLINICAL INFORMATION: None relevant/not provided if blank. Indication: I63.9: Cerebrovascular accident (CVA), unspecified mechanism (HCC) Additional History: COMPARISON: None. FINDINGS: Lungs are moderately expanded. No acute consolidations or air space opacities are seen. No pleural effusion or pneumothorax seen. Cardiac and mediastinal opacities and outline are normally maintained. Degenerative changes noted in the spine. IMPRESSION: No acute findings in the chest. > Interpreting Provider: Renato Auguste MD on 10/21/2024 5:50AM Matt Ferguson MD DIAGNOSTIC IMAGING ORDERABLES Final Result * (ABNORMAL) ISTAT CREATININE (10/20/2024 11:03 PM CDT) Creatinine POCT 0.90 0.60 - 1.30 mg/dL 10/20/2024 11:04 PM CDT [facility] eGFR by CKD-EPI 70(L) >90 mL/min/1.7 3 m2 10/20/2024 11:04 PM CDT [facility] Sample iSTAT BARBARA 10/20/2024 11:04 PM CDT [facility] Blood BLOOD SPECIMEN / Unknown 10/20/2024 11:03 PM CDT 10/20/2024 11:04 PM CDT Matt Ferguson MD LAB - POINT OF CARE ORDERABLE S Final Result [address] [address], [place] [phone] * INR WHOLE BLOOD - POINT OF CARE (IP) STROKE (10/20/2024 11:02 PM CDT) INR 0.9 0.9 - 1.2 10/20/2024 11:03 PM CDT [facility] Device [id number] 10/20/2024 11:03 PM CDT [facility] Qc Scientist ID [id number] 10/20/2024 11:03 PM CDT [facility] Blood BLOOD SPECIMEN / Unknown 10/20/2024 11:02 PM CDT 10/20/2024 11:03 PM CDT Matt Ferguson MD LAB - POINT OF CARE ORDERABLE S Final Result [address] [address], [place] [phone] * CT Brain Stroke (10/20/2024 10:57 PM CDT) Anatomical Region Laterality Modality Head Computed Tomogra phy 10/20/2024 11:0 2 PM CDT Impressions 10/20/2024 11:16 PM CDT IMPRESSION: 1. Accounting for the presence of intravenous contrast, no definite evidence of acute intracranial process. 2. Chronic small vessel ischemic disease of the brain with cerebral volume loss. Small chronic lacunar infarcts in the caudate nucleus bilaterally. These findings were discussed in detail with the patient's care provider, Dr. Bae by Dr. Pro via telephone at 10/20/2024 11:09 PM with readback comprehension and verification. > Interpreting Provider: Cullen Pro MD on 10/20/2024 11:16 PM Narrative 10/20/2024 11:16 PM CDT PROCEDURE: CT BRAIN STROKE, DATE/TIME OF EXAM: 10/20/2024 10:57 PM, LOCATION [facility] INDICATION: I63.9: Cerebrovascular accident (CVA), unspecified mechanism (HCC) ADDITIONAL CLINICAL INFORMATION: Ordering Provider Reason For Exam: cva Technologist Note: Additional: TECHNIQUE: CT of the head was performed without contrast according to standard protocol. CONTRAST: COMPARISON: No prior study is available for comparison at the time of this dictation. FINDINGS: The study is degraded by the residual intravenous contrast. Accounting for the presence of intravascular contrast which reduces the sensitivity to detect subtle intracranial hemorrhage, no distinct acute intracranial hemorrhage, or intra- or extra-axial fluid collections are identified. There is mild to moderate cerebral volume loss with associated ex vacuo ventricular dilatation. Small chronic lacunar infarcts in the caudate nucleus bilaterally. The basal cisterns are patent. No mass effect or midline shift is seen. The last-white matter differentiation is normal. Other than mild paranasal sinus disease, the visualized portions of the orbits, paranasal sinuses, and mastoids appear normal. No acute calvarial fracture is identified. Procedure Note Cullen Pro MD - 10/20/2024 PROCEDURE: CT BRAIN STROKE, DATE/TIME OF EXAM: 10/20/2024 10:57 PM, LOCATION [facility] INDICATION: I63.9: Cerebrovascular accident (CVA), unspecified mechanism (HCC) ADDITIONAL CLINICAL INFORMATION: Ordering Provider Reason For Exam: cva Technologist Note: Additional: TECHNIQUE: CT of the head was performed without contrast according to standard protocol. CONTRAST: COMPARISON: No prior study is available for comparison at the time ofthis dictation. FINDINGS: The study is degraded by the residual intravenous contrast. Accounting for the presence of intravascular contrast which reduces the sensitivity to detect subtle intracranial hemorrhage, no distinct acute intracranial hemorrhage, or intra- or extra-axial fluid collections are identified. There is mild to moderate cerebral volume loss withassociated ex vacuo ventricular dilatation. Small chronic lacunar infarcts in the caudate nucleus bilaterally. The basal cisterns are patent. No masseffect or midline shift is seen. The last-white matter differentiation isnormal. Other than mild paranasal sinus disease, the visualized portions of the orbits, paranasal sinuses, and mastoids appear normal. No acute calvarial fracture is identified. IMPRESSION: 1. Accounting for the presence of intravenous contrast, no definite evidence of acute intracranial process. 2. Chronic small vessel ischemic disease of the brain with cerebralvolume loss. Small chronic lacunar infarcts in the caudate nucleus bilaterally. These findings were discussed in detail with the patient's careprovider, Dr. Bae by Dr. Pro via telephone at 10/20/2024 11:09 PM withreadback comprehension and verification. > Interpreting Provider: Cullen Pro MD on 10/20/2024 11:16 PM Matt Ferguson MD CT ORDERABLES Final Result from Last 3 Months Insurance [facility] MANAGED MEDICARE ADV Advance Directives * Full Code (Latest Code Status on File) Date Activated Date Inactivated Comments 10/20/2024 10:57 PM 10/25/2024 5:08 PM Care Teams Marketing Automation Analyst Relationship Specialty Start Date End Date Denny Crawley MD [address] [place] [address] PCP - General Internal Medicine 10/25/24
--- OUTSIDE RECORDS SUMMARY | 2024-11-15 19:48 | XMS_ITS | Clinical Summary ---
Author Organization [facility] Administrative Offices Address [address] [place] [address] Care Team Providers Care Cnc Lathe Machine Operator Name Role Phone Denny Crawley MD Primary Care Provider [phone] Encounters Date Type Department Care Team Description 10/31/2024 External Device Data [facility] ABSTRACTION Provider, Abstract 10/31/2024 External Device Data [facility] ABSTRACTION Provider, Abstract 10/30/2024 External Device Data [facility] ABSTRACTION Provider, Abstract 09/05/2024 External Device Data [facility] ABSTRACTION Provider, Abstract 09/04/2024 External Device Data [facility] ABSTRACTION Provider, Abstract from Last 3 Months Social History Tobacco Use Types Packs/Day Years Used Date Smoking Tobacco: Never Assessed Comments Unknown Sex and Gender Information Value Date Recorded Sex Assigned at Not on file Legal Sex Female 2:52 PM DISABILITY REPRESENTATIVE Gender Identity Not on file Sexual Orientation [...] (#1) 2024 01/03/2020 BREAST CANCER SCREENING 06/19/2025 06/20/19 26, 05/10/2023, 05/04/2022, Additional history exists DTAP/TDAP/TD VACCINES (2 - T d or Tdap) 12/20/2030 12/20/2020 RSV VACCINE (60+ or ) (1 - 1-dose 75+ series) 07/26/2031 Procedures Procedure Name Priority Date/Time Associated Diagnosis Comments MAMMO 3D SOLITARIO SCREEN BILAT W OR WO CAD Routine 06/19/2024 1:06 PM DISABILITY REPRESENTATIVE Visit for screening mammogram from Last 3 Months or Most Recently Relevant to Health Maintenance Results * MAMMO 3D SOLITARIO SCREEN BILAT W OR WO CAD (06/19/2024 1:06 PM DISABILITY REPRESENTATIVE) Anatomical Region Laterality Modality Breast Bilateral Mammography 06/19/2024 1:06 PM DISABILITY REPRESENTATIVE Impressions 06/19/2024 1:42 PM DISABILITY REPRESENTATIVE IMPRESSION: No mammographic evidence of malignancy. RECOMMENDATIONS: Routine screening mammogram in one year. DICTATION LOCATION: [facility] Narrative 06/19/2024 1:42 PM DISABILITY REPRESENTATIVE MAMMO 3D SOLITARIO SCREEN BILAT W OR [...] [facility] DS[facility] [id number] Care Teams Cnc Lathe Machine Operator Relationship Specialty Start Date End Date Denny Crawley MD PCP - General Internal Medicine 04/24/21
--- OUTSIDE RECORDS SUMMARY | 2024-11-15 19:48 | XMS_ITS | Referral Summary ---
Author Organization [facility] Physician Office Building [address] [place] [address] Care Team Providers Care Mine Geologist Name Role Phone Denny Crawley MD Primary Care Provider [phone] Jose Hale MD Unavailable + Allergies Active Allergy Reactions Criticality Noted Date Comments Ciprofloxacin Swelling Medium 06/22/2017 per [facility] Penicillin Swelling Medium 03/27/2021 per [facility] Sulfa (Sulfonamide Antibiotics) Swelling Medium 06/17 [...] cervical vertebra, unspecified fracture morphology, initial encounter ([facility]) Take 2 tablets (650 mg [...] PRN. Assessment & Plan (05/13/2021 4:04 PM LIABILITY CLAIMS EXAMINER): One month status post Procedure(s): EXCHANGE INTRAOCULAR [...] level Assessment & Plan (04/08/2021 2:41 PM LIABILITY CLAIMS EXAMINER): One week status post Procedure(s): EXCHANGE INTRAOCULAR [...] level Assessment & Plan (04/03/2021 1:13 PM LIABILITY CLAIMS EXAMINER): One day status post Procedure(s): EXCHANGE INTRAOCULAR [...] activity. 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 file Not on file Last Filed Vital Signs Vital Sign Reading Time Taken Comments Blood Pressure 141/66 04/02/2021 1:20 PM LIABILITY CLAIMS EXAMINER Pulse 71 04/02/2021 1:20 PM LIABILITY CLAIMS EXAMINER Temperature 36.2 C (97.2 F) 04/02/2021 12:35 PM LIABILITY CLAIMS EXAMINER Respiratory Rate 21 04/02/2021 1:20 PM LIABILITY CLAIMS EXAMINER Oxygen Saturation 98% 04/02/2021 1:20 PM LIABILITY CLAIMS EXAMINER Inhaled Oxygen Concentration - - Weight 88.5 kg (195 lb) 04/02/2021 9:09 AM LIABILITY CLAIMS EXAMINER Height 165.1 cm (5' 5) 04/02/2021 9:09 AM LIABILITY CLAIMS EXAMINER Body Mass Index 32.45 04/02/2021 9:09 AM LIABILITY CLAIMS EXAMINER Plan of Treatment Not on file Medical Devices Implanted Type Area Sr. Vendor Management Associate Device Identifier Shelf Expiration Date Model / Serial / Lot Nic Surgical [id number] Kelman Multiflex Iii 5.5mm 13mm 1 Piece Uv Absorbent Anterior - [id number] - [id number] Implanted:Qty: 1 on 04/02/2021 by Ludwin Mcdaniel MD at [facility] Lens Left: Lens [employer] [id number] 04/17/2021 [id number] / [id number] / 0 Insurance [facility] [facility] PPO [facility] H[facility]/PPO Address: [address] [address] [place] [address] [facility] ACCESS CHOICE Member Subscriber Plan / Payer (Ef fective 2020-Present) Name:Maine Calvo Relation to Subscriber:Self Name:Maine Calvo Payer ID:[id number] ([facility]) Group ID:Not on file Type:[employer] Address: [address] [employer] ACCESS CHOICE Member Subscriber Plan / Payer (Ef fective 2019-Present) Name:Maine Calvo Relation to Subscriber:Self Name:Maine Calvo Payer ID:[id number] ([employer]) Type:[facility] Address: [address] [facility] HMO/PPO Address: [address] [address] [place] [address] [facility] Address: [address] [address] [place] [address] [id number] Advance Directives For more information, please contact: [phone] * Full Code (Latest Code Status on File) Date Activated Date Inactivated Comments 12/21/2020 12:57 AM 12/31/2020 3:08 AM Care Teams Mine Geologist Relationship Specialty Start Date End Date Denny Crawley MD [address] [facility] [address] [place] [address] PCP - General Internal Medicine 06/14/17 Jose Hale MD [address] [facility] [address] [place] [address] Orthopedic Surgery 12/30/20
--- OUTSIDE RECORDS SUMMARY | 2024-11-15 19:48 | XMS_ITS | Clinical Summary ---
Author Organization [facility] Physician Office Building [id number] [place] [id number] Care Team Providers Care Scientific Writer Name Role Phone Denny Crawley MD Primary Care Provider [phone] Jose Hale MD Unavailable + Allergies Active Allergy Reactions Criticality Noted Date Comments Ciprofloxacin Swelling Medium 06/22/2017 per [facility] Penicillin Swelling Medium 03/27/2021 per [facility] Sulfa (Sulfonamide Antibiotics) Swelling Medium [...] vertebra, unspecified fracture morphology, initial encounter ([facility]) Take 2 tablets (650 mg total) by [...] PRN. Assessment & Plan (05/13/2021 4:04 PM CNC MACHINE SETTER): One month status post Procedure(s): EXCHANGE INTRAOCULAR [...] level Assessment & Plan (04/08/2021 2:41 PM CNC MACHINE SETTER): One week status post Procedure(s): EXCHANGE INTRAOCULAR [...] level Assessment & Plan (04/03/2021 1:13 PM CNC MACHINE SETTER): One day status post Procedure(s): EXCHANGE INTRAOCULAR [...] activity. 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 Not on file Obstetrics History Last Filed Vital Signs Vital Sign Reading Time Taken Comments Blood Pressure 141/66 04/02/2021 1:20 PM CNC MACHINE SETTER Pulse 71 04/02/2021 1:20 PM CNC MACHINE SETTER Temperature 36.2 C (97.2 F) 04/02/2021 12:35 PM CNC MACHINE SETTER Respiratory Rate 21 04/02/2021 1:20 PM CNC MACHINE SETTER Oxygen Saturation 98% 04/02/2021 1:20 PM CNC MACHINE SETTER Inhaled Oxygen Concentration - - Weight 88.5 kg (195 lb) 04/02/2021 9:09 AM CNC MACHINE SETTER Height 165.1 cm (5' 5) 04/02/2021 9:09 AM CNC MACHINE SETTER Body Mass Index 32.45 04/02/2021 9:09 AM CNC MACHINE SETTER Plan of Treatment Not on file Medical Devices Implanted Type Area Rouge Presser Device Identifier Shelf Expiration Date Model / Serial / Lot Nic Surgical [id number] Kelman Multiflex Iii 5.5mm 13mm 1 Piece Uv Absorbent Anterior - [id number] - [id number] Implanted:Qty: 1 on 04/02/2021 by Ludwin Mcdaniel MD at [facility] Lens Left: Lens [employer] [id number] 04/17/2021 [id number] / [id number] / 0 Insurance [facility] PPO [facility] HMO/PPO Address: [address] [place] [address] [facility] CHOICE PLUS [facility] ACCESS CHOICE BLUE [employer] OOS [address] [place] [address] ACCESS CHOICE Member Subscriber Plan / Payer (Ef fective 2019-Present) Name:Maine Calvo James Relation to Subscriber:Self Name:Maine Calvo Payer ID:[id number] (NAIC) Type:[employer] Address: [address] CHOICE PLUS [facility] MEDICARE ADVANTAGE Advance Directives For more information, please contact: [phone] * Full Code (Latest Code Status on File) Date Activated Date Inactivated Comments 12/21/2020 12:57 AM 12/31/2020 3:08 AM Care Teams Scientific Writer Relationship Specialty Start Date End Date Denny Crawley MD [address] [address] PCP - General Internal Medicine 06/14/17 Jose Hale MD [address] [address] Orthopedic Surgery 12/30/20
[2024-11-15 20:19] LABS: Hematocrit 34.4 % (37.0-47.0); Hemoglobin 11.6 g/dL (12.0-15.0); Immature Granulocyte Percent A 0.3 % (0-0.5); Lymphocytes Absolute Auto 2.37 K/mm3 (0.9-3.2); Mean Corpuscular HGB Conc 33.7 g/dl (32-36); Mean Corpuscular Hemoglobin 30.1 pg (26-34); Mean Corpuscular Volume 89.1 fl (80-100); Nucleated Red Blood Cells Absolute Auto 0.000 K/mm3 (0.0-0.012); Nucleated Red Blood Cells Perc 0.0 % (0.0-0.2); Platelet Count Result 229 k/mm3 (150-375); Red Blood Count 3.86 M/mm3 (4.2-5.4); White Blood Count 10.0 K/mm3 (4.5-10.0)
[2024-11-15] MEDS: cefTRIAXone 2 GM in SODIUM CHLORIDE 0.9% IV 100 ML 200 ML IVPB (20:21)
[2024-11-15] MEDS: FAMOTIDINE 20 MG/2 ML VIAL IV PUSH (20:21)
[2024-11-15] MEDS: LORATADINE 10 MG TABLET PO (20:22)
[2024-11-15 20:27] VITALS: PULSE 70; RESP 14; O2SAT 100
[2024-11-15 20:30] VITALS: BP 152/56; PULSE 71; RESP 17; O2SAT 100
--- OUTSIDE RECORDS SUMMARY | 2024-11-15 20:31 | XMS_ITS | Encounter Summary ---
Author Organization [facility] Healthcare Address [address] [place] [address] Care Team Providers Care Laminating Machine Feeder Name Role Phone Denny Crawley MD Primary Care Provider [phone] Jose Hale MD Unavailable + Encounter Details Date Type Department Care Team (Latest Contact Info) Description 12/20/2020 Ophth Exam Ophthalmology Arash Moon MD PhD [address] [facility] 1 [facility] [id number] [place], [place] [id number] Social History Tobacco Use Types Packs/Day Years Used Date Smoking Tobacco: Never Smokeless Tobacco: Never Alcohol Use Standard Drinks/Week Comments No 0 (1 standard drink = 0.6 oz pur e alcohol) PHQ-2 Answer Date Recorded PHQ-2 Score 0 06/22/2018 Comments Unknown Sex and Gender Information Value Date Recorded Sex Assigned at Not on file Legal Sex Female 11:27 PM PUFF IRON OPERATOR Gender Identity Not on file Sexual [...] lens nor IOL present Vitreous Normal, no Angier's sign no Shaf er's sign, s/p vitrectomy Fundus Exam Right eye Left eye Disc large area of PPA, no disc edema large area of PPA, no disc edema. displaced 3-piece IOL overlying nerve head and posterior pole C/D Ratio 0.5 0.5 Macula Normal Normal Vessels Normal Normal Periphery Normal, PROTOTYPE CARPENTER with no RT/RDs. No h gideon Normal, PROTOTYPE CARPENTER with no RT/RDs. No heme Care Teams Laminating Machine Feeder Relationship Specialty Start Date End Date Denny Crawley MD [address] [address] PCP - General Internal Medicine 06/14/17 Jose Hale MD [address] [address] Orthopedic Surgery 12/30/20 documented as of this encounter
--- OUTSIDE RECORDS SUMMARY | 2024-11-15 20:32 | XMS_ITS | Referral Summary ---
Author Organization [facility] Physician Office Building [address] [place] [id number] Care Team Providers Care Fishing Line Winding Machine Operator Name Role Phone Denny Crawley MD Primary Care Provider [phone] Jose Hale MD Unavailable + Allergies Active Allergy Reactions Criticality Noted Date Comments Ciprofloxacin Swelling Medium 06/22/2017 per [facility] Penicillin Swelling Medium 03/27/2021 per [facility] Sulfa (Sulfonamide Antibiotics) Swelling Medium 06/17 Swelling [...] cervical vertebra, unspecified fracture morphology, initial encounter ([facility]) Take 2 tablets (650 mg [...] PRN. Assessment & Plan (05/13/2021 4:04 PM BRANCH EXAMINER): One month status post Procedure(s): EXCHANGE [...] level Assessment & Plan (04/08/2021 2:41 PM BRANCH EXAMINER): One week status post Procedure(s): EXCHANGE [...] level Assessment & Plan (04/03/2021 1:13 PM BRANCH EXAMINER): One day status post Procedure(s): EXCHANGE [...] activity. 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 file Not on file Last Filed Vital Signs Vital Sign Reading Time Taken Comments Blood Pressure 141/66 04/02/2021 1:20 PM BRANCH EXAMINER Pulse 71 04/02/2021 1:20 PM BRANCH EXAMINER Temperature 36.2 C (97.2 F) 04/02/2021 12:35 PM BRANCH EXAMINER Respiratory Rate 21 04/02/2021 1:20 PM BRANCH EXAMINER Oxygen Saturation 98% 04/02/2021 1:20 PM BRANCH EXAMINER Inhaled Oxygen Concentration - - Weight 88.5 kg (195 lb) 04/02/2021 9:09 AM BRANCH EXAMINER Height 165.1 cm (5' 5) 04/02/2021 9:09 AM BRANCH EXAMINER Body Mass Index 32.45 04/02/2021 9:09 AM BRANCH EXAMINER Plan of Treatment Not on file Medical Devices Implanted Type Area Dehairer Device Identifier Shelf Expiration Date Model / Serial / Lot Nic Surgical [id number] Kelman Multiflex Iii 5.5mm 13mm 1 Piece Uv Absorbent Anterior - [id number] - [id number] Implanted:Qty: 1 on 04/02/2021 by Ludwin Mcdaniel MD at [facility] Lens Left: Lens [employer] [id number] 04/17/2021 [id number] / [id number] / 0 Insurance [employer] [facility] PPO [facility] CHOICE PLUS [facility] ACCESS CHOICE Member Subscriber Plan / Payer (Ef fective 2020-Present) Name:Maine Calvo Relation to Subscriber:Self Name:Maine Calvo Payer ID:[id number] ([facility]) Group ID:Not on file Type:[employer] Address: [address] [employer] ACCESS CHOICE Member Subscriber Plan / Payer (Ef fective 2019-Present) Name:Maine Calvo Relation to Subscriber:Self Name:Maine Calvo Payer ID:[id number] (NAIC) Type:[facility] Address: [address] CHOICE PLUS [address] Advance Directives For more information, please contact: [phone] * Full Code (Latest Code Status on File) Date Activated Date Inactivated Comments 12/21/2020 12:57 AM 12/31/2020 3:08 AM Care Teams Fishing Line Winding Machine Operator Relationship Specialty Start Date End Date Denny Crawley MD [address] [facility] [address] [place] [address] PCP - General Internal Medicine 06/14/17 Jose Hale MD [address] [facility] [address] [place] [address] Orthopedic Surgery 12/30/20
--- OUTSIDE RECORDS SUMMARY | 2024-11-15 20:32 | XMS_ITS | Clinical Summary ---
Author Organization [facility] Cue Address [facility] [place] [address] Care Team Providers Care Business Dean Name Role Phone Denny Crawley MD Primary Care Provider [phone] [facility] Cue,non-owned Affiliates and Associated Physician Practices is amultiple site organization consisting of ambulatory clinics and hospital sitesin [place], [place], [place]. This disclosure is being madepursuant to the Care Everywhere program and may not contain all information available regarding this patient. Last updated 18.[facility] Cue Allergies Active Allergy Reactions Criticality Noted Date [...] contrast in 6-8 weeks - 30 day gambling monitor on discharge - Follow up in stroke [...] contrast in 6-8 weeks - 30 day gambling monitor on discharge - Follow up in stroke [...] contrast in 6-8 weeks - 30 day gambling monitor on discharge - Follow up in stroke [...] contrast in 6-8 weeks - 30 day gambling monitor on discharge - Follow up in stroke [...] contrast in 6-8 weeks - 30 day gambling monitor on discharge - Follow up in stroke [...] contrast in 6-8 weeks - 30 day gambling monitor on discharge - Follow up in stroke [...] contrast in 6-8 weeks - 30 day gambling monitor on discharge - Follow up in stroke [...] contrast in 6-8 weeks - 30 day gambling monitor on discharge - Follow up in stroke [...] contrast in 6-8 weeks - 30 day gambling monitor on discharge - Follow up in stroke [...] contrast in 6-8 weeks - 30 day gambling monitor on discharge - Follow up in stroke [...] contrast in 6-8 weeks - 30 day gambling monitor on discharge - Follow up in stroke [...] contrast in 6-8 weeks - 30 day gambling monitor on discharge - Follow up in stroke [...] contrast in 6-8 weeks - 30 day gambling monitor on discharge - Follow up in stroke [...] contrast in 6-8 weeks - 30 day gambling monitor on discharge - Follow up in stroke [...] contrast in 6-8 weeks - 30 day gambling monitor on discharge - Follow up in stroke [...] contrast in 6-8 weeks - 30 day gambling monitor on discharge - Follow up in stroke [...] contrast in 6-8 weeks - 30 day gambling monitor on discharge - Follow up in stroke [...] contrast in 6-8 weeks - 30 day gambling monitor on discharge - Follow up in stroke [...] PM CDT Office Visit Transitional Care at [address] [phone] Janet Kaye, SECRETARY ADMINISTRATIVE ASSISTANT-BULK RECEIVER Hospital discharge follow-up (Primary Dx); Essential hypertension; Type 2 diabetes mellitus without complication, without long-term current use of insulin (HCC); Cerebrovascular accident (CVA), unspecified mechanism (HCC); Neuropathy 10/30/2024 Travel 10/29/2024 Telephone Transitional Care at [address] [phone] Stephanei Park, lead applications developer 10/26/2024 Telephone Transitional Care at [address] [phone] Stephanie Park, lead applications developer 10/20/2024 10:47 PM CDT - 10/25/2024 4:03 PM CDT Hospital Encounter SL 6S ACUTE [address] [place] [address] Matt Ferguson MD Esechie, Aimalohi, MD Archuleta, [...] and heating? Patient unable to answer 10/21/2024 [facility] of Occupat ional Health - Occupational Stress [...] any time in the past [address] [facility], were you homeless or living in a penitentiary (including now)? Patient unable to answer 10/21/2024 Comments No Sex and Gender Information Value Date Recorded Sex Assigned at Not on file Legal Sex Female 4:47 AM WEBSITE DESIGNER Gender Identity Not on file Sexual Orientation [...] Office Visit [facility] - Neurology [address] [place] [address], [place] [phone] Galilea Joseph PA-C [address] [place] [address] [address] [place] [phone] 03/01/2025 1:30 PM WEBSITE DESIGNER Appointment [facility] MRI [address] [place] [phone] Elsie Chapman MD [address] [place] [address] 03/27/2025 12:30 PM WEBSITE DESIGNER Office Visit [facility] - Nephrology [address] [place] [address], [place] [phone] Alexandria Garrison APRN-GEORGETTE [address] [place] [phone] Clarence Willson MD [address] [place] [address] 3[address] [place] [phone] Health Maintenance Due Date Last Done Comments [...] resultswithin the time period is included. Pathologist [facility] Glucose WB/POC 270(H) 70 - 99 mg/dL 10/25/2024 12:24 PM CDT [facility] Specimen Type Arterial/C apillary 10/25/2024 12:24 PM CDT [facility] Blood BLOOD SPECIMEN / Unknown 10/25/2024 12:22 PM CDT 10/25/2024 12:24 PM CDT us Memo Costa MD LAB - POINT OF CARE ORDERABLES Final Result [facility] [address] [place] [phone], [facility] [phone] * METANEPHRINES FRACTIONATED PLASMA (10/25/2024 10:48 AM CDT) [facility] Metanephrine <0.10 0.00 - 0.49 nmol/L 10/30/2024 1:23 PM CDT [facility] ([facility]) Normetanephrine 0.61 0.00 - 0.89 nmol/L 10/30/2024 1:23 PM CDT [facility] ([facility]) Interpretation Metanephrine See Note 10/30/2024 1:23 PM CDT [facility] ([facility]) Comment: INTERPRETIVE INFORMATION: Metanephrines, Plasma (Free) [...] developed and its performance characteristics determined by [facility]. It has not been cleared or approved by the US Food and Drug Administration. This test was performed in a CLIA certified laboratory and is intended for clinical purposes. Performed By: [facility] [address] [place] [address] Green Chain Offbearer: Bennett Singleton MD, PhD [place] Number: [id number] Blood BLOOD SPECIMEN / Unknown Lab Venipuncture / Unknown 10/25/2024 10:48 AM CDT 10/25/2024 10:55 AM CDT Marixa Arroyo MD LAB - CHEMISTRY ORDERABLES nal Result [facility]) [address] [place] [address], [facility] * RENIN ACTIVITY (10/25/2024 10:48 AM CDT) Renin 1.1 ng/mL/hr 10/28/2024 5:50 PM CDT [facility] ([facility]) Comment: INTERPRETIVE INFORMATION: Renin Activity Adult, Normal sodium diet: Supine ................. 0.2-1.6 ng/mL/hr Upright ................ 0.5-4.0 ng/mL/hr Children, Normal sodium diet, Supine: [place] (1-7 days) ..... 2.0-35.0 ng/mL/hr Cord blood [...] developed and its performance characteristics determined by [facility]. It has not been cleared or approved by the US Food and Drug Administration. This test was performed in a CLIA certified laboratory and is intended for clinical purposes. Performed By: [facility] [address] [place] [address] Green Chain Offbearer: Bennett Singleton MD, PhD CLIA Number: [id number] Blood BLOOD SPECIMEN / Unknown Lab Venipuncture / Unknown 10/25/2024 10:48 AM CDT 10/25/2024 11:19 AM CDT Marixa Arroyo MD LAB - CHEMISTRY ORDERABLES Fi nal Result Performing Organization Address [facility] Co de Phone Number [facility] ([facility]) [address] [place] [address] * ALDOSTERONE BLOOD (10/25/2024 10:48 AM CDT) Aldosterone <3.0 ng/dL 10/28/2024 12:34 AM CDT [facility] ([facility]) Comment: INTERPRETIVE INFORMATION: Aldosterone, Serum Reference [...] reference intervals for this test in the [facility] Test Directory ([facility]). Performed By: [facility] [address] [place] [address] Green Chain Offbearer: Bennett Singleton MD, PhD CLIA Number: [id number] Blood BLOOD SPECIMEN / Unknown Lab Venipuncture / Unknown 10/25/2024 10:48 AM CDT 10/25/2024 10:55 AM CDT Marixa Arroyo MD LAB - CHEMISTRY ORDERABLES Fi nal Result Performing Organization Address City/[facility]/ZIP Co de Phone Number [facility] ([facility]) [address] * (ABNORMAL) CBC W/O DIFFERENTIAL (10/25/2024 10:48 AM CDT) Only the most recent of5 resultswithin the time period is included. Pathologist [facility] WBC 8.3 4.0 - 10.7 x10E9/L 10/25/2024 11:27 AM [facility] RBC Count 3.78(L) 3.90 - 5.20 x10E12/L 10/25/2024 11:27 AM [facility] Hemoglobin 11.3(L) 11.9 - 15.8 g/dL 10/25/2024 11:27 AM [facility] Hematocrit 31.9(L) 34.8 - 46.1 % 10/25/2024 11:27 AM [facility] MCV 84.4 80.0 - 98.0 fL 10/25/2024 11:27 AM [facility] MCH 29.9 26.7 - 33.6 pg 10/25/2024 11:27 AM [facility] MCHC 35.4 31.7 - 36.3 g/dL 10/25/2024 11:27 AM [facility] RDW-CV 12.1 11.3 - 14.8 % 10/25/2024 11:27 AM [facility] Platelet Count 196 150 - 420 x10E9/L 10/25/2024 11:27 AM [facility] MPV 12.6(H) 7.8 - 11.4 fL 10/25/2024 11:27 AM [facility] Blood BLOOD SPECIMEN / Unknown Lab Venipuncture / Unknown 10/25/2024 10:48 AM CDT 10/25/2024 11:19 AM CDT us Marixa Arroyo MD LAB - HEMATOLOGY ORDERABLES F inal Result [facility] [address] [place] [phone], [facility] [phone] * (ABNORMAL) COMPREHENSIVE METABOLIC PANEL (10/25/2024 10:48 AM CDT) Only the most recent of5 resultswithin the time period is included. Pathologist [facility] BUN 15 7 - 26 mg/dL 10/25/2024 12:17 PM [facility] Creatinine 0.83 0.56 - 0.96 mg/dL 10/25/2024 12:17 PM [facility] Sodium 130(L) 136 - 145 mmol/L 10/25/2024 12:17 PM [facility] Potassium 4.5 3.5 - 4.5 mmol/L 10/25/2024 12:17 PM [facility] Chloride 103 98 - 107 mmol/L 10/25/2024 12:17 PM [facility] CO2 19(L) 22 - 29 mmol/L 10/25/2024 12:17 PM [facility] Glucose 365(H) 70 - 99 mg/dL 10/25/2024 12:17 PM [facility] Calcium 8.6 8.4 - 10.2 mg/dL 10/25/2024 12:17 PM [facility] Protein Total 6.5 6.0 - 8.3 g/dL 10/25/2024 12:17 PM [facility] Albumin 3.2(L) 3.4 - 5.0 g/dL 10/25/2024 12:17 PM [facility] Bilirubin Total 0.5 0.2 - 1.2 mg/dL 10/25/2024 12:17 PM [facility] Alkaline Phosphatase 117 40 - 150 U/L 10/25/2024 12:17 PM [facility] ALT 34 5 - 55 U/L 10/25/2024 12:17 PM [facility] AST 32 5 - 34 U/L 10/25/2024 12:17 PM [facility] Anion Gap 8 6 - 16 10/25/2024 12:17 PM [facility] BUN/Creatinine Ratio 18 7 - 23 10/25/2024 12:17 PM [facility] Osmolality Calculated 286 275 - 295 mOsm/kg 10/25/2024 12:17 PM [facility] Albumin/Globulin Ratio 1.0(L) 1.1 - 2.3 10/25/2024 12:17 PM [facility] eGFR by CKD-EPI 77(L) >=90 mL/min/1.7 3 m2 10/25/2024 12:17 PM CDT [facility] Comment:Estimated Glomerular Filtration Rate (eGFR) calculated using the CKD-EPI Creatinine Equation (2020), per the National Kidney Foundation and [place] Society of Nephrology recommendations. Blood BLOOD SPECIMEN / Unknown Lab Venipuncture / Unknown 10/25/2024 10:48 AM CDT 10/25/2024 11:08 AM CDT us Marixa Arroyo MD LAB - CHEMISTRY ORDERABLES Fi nal Result Performing Organization Address City/[facility]/ZIP Co de Phone Number [address] [address], [place] [phone] * PHOSPHORUS BLOOD (10/25/2024 10:48 AM CDT) Only the most recent of5 resultswithin the time period is included. Phosphorus 3.2 2.9 - 5.1 mg/dL 10/25/2024 12:09 PM CDT [facility] Blood BLOOD SPECIMEN / Unknown Lab Venipuncture / Unknown 10/25/2024 10:48 AM CDT 10/25/2024 11:08 AM CDT us Marixa Arroyo MD LAB - CHEMISTRY ORDERABLES Fi nal Result Performing Organization Address [facility] Co de Phone Number [address] [address], [place] [phone] * MAGNESIUM BLOOD (10/25/2024 10:48 AM CDT) Only the most recent of5 resultswithin the time period is included. Magnesium 1.8 1.6 - 2.6 mg/dL 10/25/2024 12:09 PM CDT [facility] Blood BLOOD SPECIMEN / Unknown Lab Venipuncture / Unknown 10/25/2024 10:48 AM CDT 10/25/2024 11:08 AM CDT us Marixa Arroyo MD LAB - CHEMISTRY ORDERABLES Fi nal Result [address] [address], [facility] [phone] * CORTISOL BLOOD AM (10/24/2024 5:05 PM CDT) Cortisol AM 9.3 3.7 - 19.4 ug/dL 10/24/2024 7:01 PM CDT [facility] Blood BLOOD SPECIMEN / Unknown Lab Venipuncture / Unknown 10/24/2024 5:05 PM CDT 10/24/2024 6:13 PM CDT Narrative [facility] - 10/24/2024 7:01 PM CDT Normal cortisol levels are generally highest in the morning hours and lowest from late evening through the manager product support hours (8 PM to 4 AM). The PM measurements of cortisol run approximately one-half to one-third of the AM values. 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 Right kidney: Size:11.0 [...] - 4.940 uIU/mL 10/23/2024 7:42 AM CDT [facility] Blood BLOOD SPECIMEN / Unknown Lab Venipuncture / Unknown 10/23/2024 6:10 AM CDT 10/23/2024 6:42 AM CDT us Elsie Chapman MD LAB - CHEMISTRY ORDERABLES F inal Result [facility] [address] [place] [address], [facility] [phone] * (ABNORMAL) HEMOGLOBIN A1C (10/23/2024 6:10 AM CDT) Only the most recent of2 resultswithin the time period is included. Hemoglobin A1c 7.1(H) <=5.6 % 10/23/2024 2:39 PM CDT [facility] Estimated Average Glucose 157 mg/dL 10/23/2024 2:39 PM CDT [facility] Comment: HbA1c Interpretation: Normal : < 5.7% Pre-diabetes: 5.7-6.4% Diabetes: Equal to or greater than 6.5% Test results diagnostic of diabetes should be repeated for confirmation. Treatment target values recommended by ADA and other clinical organizations should be used to evaluate metabolic control in patients. Reference: [place] Diabetes Association, Standards of Care in Diabetes [...] LAB - CHEMISTRY ORDERABLES F inal Result [facility] [id number] [place] [address], [facility] [phone] * MRI Brain Wo Contrast (10/22/2024 5:10 [...] DATE/TIME OF EXAM: 10/22/2024 5:11 PM, LOCATION [facility] INDICATION: I63.9: Cerebrovascular accident (CVA), unspecified mechanism [...] DATE/TIME OF EXAM: 10/22/2024 5:11 PM, LOCATION [facility] INDICATION: I63.9: Cerebrovascular accident (CVA), unspecified mechanism [...] 12:37 PM Patient Status: I/P Study Site: [facility] Primary Location: [facility] Technical Quality: Fair Exam Type: ECHO COMPLETE [...] Provider: Matt Ferguson Attending Physician: Matt Ferguson College Director: Vel Doyle Left Ventricle The left ventricle [...] 12:37 PM Patient Status: I/P Study Site: [facility] Primary Location: [facility] EStudy Info Technical Quality: Fair Exam Type: [...] Provider: Matt Ferguson Attending Physician: Matt Ferguson College Director: Vel Doyle Left Ventricle The left ventricle [...] report was drafted by Perla Bueno MD (oral and maxillofacial surgery resident) 10/22/2024 12:29 AM. I, Cullen Pro MD have personally reviewed and interpreted this examination/study. > Interpreting Provider: Cullen Pro MD on 10/22/2024 12:37 AM Narrative 10/22/2024 12:37 AM CDT PROCEDURE: CT HEAD WO CONTRAST, DATE/TIME OF EXAM: 10/21/2024 11:24 PM, LOCATION [facility] INDICATION: I63.9: Cerebrovascular accident (CVA), unspecified mechanism [...] DATE/TIME OF EXAM: 10/21/2024 11:24 PM, LOCATION [facility] INDICATION: I63.9: Cerebrovascular accident (CVA), unspecified mechanism [...] bilaterally. The report was drafted by Perla Beuno MD (oral and maxillofacial surgery resident) 10/22/2024 12:29 AM. I, Cullen Pro MD have personally reviewed and interpreted this examination/study. > Interpreting Provider: Cullen Pro MD on 10/22/2024 12:37 AM Matt Ferguson MD CT ORDERABLES Final Result * (ABNORMAL) URINALYSIS REFLEX TO MICROSCOPIC NO CULTURE (10/21/2024 10:00 AM CDT) Color UA Yellow Yellow, Straw 10/21/2024 10:21 AM [facility] Clarity UA Turbid(A) Clear 10/21/2024 10:21 AM [facility] Glucose UA Normal Normal 10/21/2024 10:21 AM [facility] Bilirubin UA Negative Negative 10/21/2024 10:21 AM [facility] Ketone UA Negative Negative 10/21/2024 10:21 AM [facility] Specific [place] UA 1.041(H) 1.005 - 1.030 10/21/2024 10:21 AM [facility] Blood UA Trace(A) Negative 10/21/2024 10:21 AM [facility] pH UA 5.5 5.0 - 8.0 10/21/2024 10:21 AM [facility] Protein UA Trace(A) Negative 10/21/2024 10:21 AM [facility] Urobilinogen UA Normal Normal mg/dL 10/21/2024 10:21 AM [facility] Nitrite UA Negative Negative 10/21/2024 10:21 AM [facility] Leukocyte Esterase UA 500 PHILIP/uL(A) Negative 10/21/2024 10:21 AM [facility] RBC UA 21-50(A) 0 - 5 # /hpf 10/21/2024 10:21 AM [facility] WBC UA >100(A) 0 - 5 # /hpf 10/21/2024 10:21 AM [facility] Bacteria UA 2+(A) None Seen 10/21/2024 10:21 AM [facility] Squamous Epithelial Cells 0-2 0 - 5 /hpf 10/21/2024 10:21 AM [facility] Mucus UA 1+ /LPF 10/21/2024 10:21 AM [facility] Urine URINE SPECIMEN OBTAINED BY CLEAN CATCH PROCEDURE / Unknown Collection / Unknown 10/21/2024 10:00 AM CDT 10/21/2024 10:08 AM [facility] us Matt Ferguson MD LAB - URINALYSIS ORDERABLES F inal Result Performing Organization Address [facility]/ZIP Co de Phone Number [facility] [address] [place] [address], [facility] [phone] * EKG 12-LEAD - If not done in ED (10/21/2024 1:01 AM CDT) Ventricular Rate 74 BPM SL MUSE Atrial Rate 74 BPM [facility] MUSE P-R Interval 198 ms [facility] MUSE QRS Duration ms 82 ms H MUSE Q-T Interval ms 406 ms [facility] MUSE QTC Calculation (Bezet) 450 ms SL MUSE Calculated P [place] 34 degrees [facility] MUSE Calculated R [place] -40 degrees SL MUSE Calculated T [place] 20 degrees [facility] MUSE Interpretation EKG NORMAL SINUS RHYTHM LEFT AXIS DEVIATION MINIMAL VOLTAGE CRITERIA FOR LVH, MAY BE NORMAL VARIANT ( R in aVL ) ABNORMAL ECG NO PREVIOUS ECGS AVAILABLE Confirmed by KUNAL DONG MD ([id number]) on 10/21/2024 2:15:32 PM [facility] MUSE 10/21/2024 1:01 AM CDT 10/21/2024 2:15 PM CDT us Matt Ferguson MD ECG ORDERABLES Edited Result - Final Performing Organization Address [facility] de Phone Number [facility] * TROPONIN-I HIGH SENSITIVE REFLEX 1HOUR (10/20/2024 11:56 PM CDT) Pathologist [facility] Troponin I High Sensitive 9 <=14 ng/L 10/21/2024 12:39 AM CDT [facility] Delta Troponin I HS 10/21/2024 12:39 AM CDT [facility] Comment:Delta value intentio adelso not calculated. Baseline to 1 hour specimen collection interval exceeded. Blood BLOOD SPECIMEN / Unknown Venipuncture / Unknown 10/20/2024 11:56 PM CDT 10/21/2024 12:02 AM CDT us Matt Ferguson MD LAB - CHEMISTRY ORDERABLES Fi nal Result Performing Organization Address [facility]/ZIP Co de Phone Number [facility] [address] [place] [address], [facility] [phone] * LIPID PROFILE (10/20/2024 11:22 PM CDT) Cholesterol Total 132 <200 mg/dL 10/21/2024 1:05 AM T [facility] HDL 43 >40 mg/dL 10/21/2024 1:05 AM T [facility] Comment: ATP III Classification of HDL Cholesterol: <40 mg/dL: Considered a major risk factor. >60 mg/dL: Considered a negative risk factor. LDL Calculated 59 <100 mg/dL 10/21/2024 1:05 AM T [facility] Comment: ATP III Classification of LDL Cholesterol: <100 mg/dL: Optimal 100 - 129 mg/dL: Near Optimal/Above Optimal 130 - 159 mg/dL: Borderline High 160 - 189 mg/dL: High >190 mg/dL: Very High LDL is calculated using the Friedewald equation. Triglycerides 148 <150 mg/dL 10/21/2024 1:05 AM T [facility] Comment: ATP III Classification of Triglycerides: <150 mg/dL: Normal 150 - 199 mg/dL: Borderline High 200 - 400 mg/dL: High >500 mg/dL: Very High Blood BLOOD SPECIMEN / Unknown Venipuncture / Unknown 10/20/2024 11:22 PM CDT 10/20/2024 11:52 PM CDT Matt Ferguson MD LAB - CHEMISTRY ORDERABLES Fi nal Result [facility] [address] [place] [address], [facility] [phone] * CT Angio Brain Neck Stroke (10/20/2024 [...] DATE/TIME OF EXAM: 10/20/2024 11:16 PM, LOCATION [facility] INDICATION: I63.9: Cerebrovascular accident (CVA), unspecified mechanism [...] STROKE, DATE/TIME OF EXAM: 1:16 PM, LOCATION [facility] INDICATION: I63.9: Cerebrovascular accident (CVA), unspecified mechanism [...] LAB - CHEMISTRY ORDERABLES Fi nal Result [place] [address] [id number] [place] [address], [facility] [phone] * XR CHEST 1VW PORTABLE (10/20/2024 11:10 [...] - 1.30 mg/dL 10/20/2024 11:04 PM CDT [facility] eGFR by CKD-EPI 70(L) >90 mL/min/1.7 3 m2 10/20/2024 11:04 PM CDT [facility] Sample iSTAT BARBARA 10/20/2024 11:04 PM CDT [facility] Blood BLOOD SPECIMEN / Unknown 10/20/2024 11:03 PM CDT 10/20/2024 11:04 PM CDT Matt Ferguson MD LAB - POINT OF CARE ORDERABLE S Final Result [address] [address], [place] [phone] * INR WHOLE BLOOD - POINT OF CARE (IP) STROKE (10/20/2024 11:02 PM CDT) INR 0.9 0.9 - 1.2 10/20/2024 11:03 PM CDT [facility] Device [id number] 10/20/2024 11:03 PM CDT [facility] Cane Flume Feeding Machine Operator ID [id number] 10/20/2024 11:03 PM CDT [facility] Blood BLOOD SPECIMEN / Unknown 10/20/2024 11:02 PM CDT 10/20/2024 11:03 PM CDT Matt Ferguson MD LAB - POINT OF CARE ORDERABLE S Final Result [address] [address], [place] [phone] * CT Brain Stroke (10/20/2024 10:57 PM [...] DATE/TIME OF EXAM: 10/20/2024 10:57 PM, LOCATION [facility] INDICATION: I63.9: Cerebrovascular accident (CVA), unspecified mechanism [...] DATE/TIME OF EXAM: 10/20/2024 10:57 PM, LOCATION [facility] INDICATION: I63.9: Cerebrovascular accident (CVA), unspecified mechanism [...] Final Result from Last [address] [facility] MANAGED MEDICARE ADV Advance Directives * Full Code (Latest Code Status on File) Date Activated Date Inactivated Comments 10/20/2024 10:57 PM 10/25/2024 5:08 PM Care Teams Business Dean Relationship Specialty Start Date End Date Denny Crawley MD [address] [place] [address] PCP - General Internal Medicine 10/25/24
--- OUTSIDE RECORDS SUMMARY | 2024-11-15 20:32 | XMS_ITS | Clinical Summary ---
Author Organization [facility] Administrative Offices Address [address] [place] [id number] Care Team Providers Care Automatic Screwmaker Name Role Phone Denny Crawley MD Primary Care Provider [phone] Encounters Date Type Department Care Team Description [...] on file Legal Sex Female 2:52 PM PREFORMING MACHINE OPERATOR Gender Identity Not on file Sexual [...] OR WO CAD Routine 06/19/2024 1:06 PM PREFORMING MACHINE OPERATOR Visit for screening mammogram from Last 3 Months or Most Recently Relevant to Health Maintenance Results * MAMMO 3D SOLITARIO SCREEN BILAT W OR WO CAD (06/19/2024 1:06 PM PREFORMING MACHINE OPERATOR) Anatomical Region Laterality Modality Breast Bilateral Mammography 06/19/2024 1:06 PM PREFORMING MACHINE OPERATOR Impressions 06/19/2024 1:42 PM PREFORMING MACHINE OPERATOR IMPRESSION: No mammographic evidence of malignancy. RECOMMENDATIONS: Routine screening mammogram in one year. DICTATION LOCATION: [facility] Narrative 06/19/2024 1:42 PM PREFORMING MACHINE OPERATOR MAMMO 3D SOLITARIO SCREEN BILAT W [...] Most Recently Relevant to Health Maintenance Insurance [facility] DUAL COMPLETE PPO DSNP [facility] [id number] Care Teams Automatic Screwmaker Relationship Specialty Start Date End Date Denny Crawley MD PCP - General Internal Medicine 04/24/21
--- OUTSIDE RECORDS SUMMARY | 2024-11-15 20:32 | XMS_ITS | Clinical Summary ---
Author Organization [facility] Physician Office Building [address] [place] [id number] Care Team Providers Care Security Sme Name Role Phone Denny Crawley MD Primary Care Provider [phone] Jose Hale MD Unavailable + Allergies Active Allergy Reactions Criticality Noted Date Comments Ciprofloxacin Swelling Medium 06/22/2017 per [facility] Penicillin Swelling Medium 03/27/2021 per [facility] Sulfa (Sulfonamide Antibiotics) Swelling Medium 06/17 [...] initial encounter (FORM[facility]) Take 2 tablets (650 mg total) by [...] PRN. Assessment & Plan (05/13/2021 4:04 PM AIRPLANE DESIGNER): One month status post Procedure(s): EXCHANGE INTRAOCULAR [...] level Assessment & Plan (04/08/2021 2:41 PM AIRPLANE DESIGNER): One week status post Procedure(s): EXCHANGE INTRAOCULAR [...] level Assessment & Plan (04/03/2021 1:13 PM AIRPLANE DESIGNER): One day status post Procedure(s): EXCHANGE INTRAOCULAR [...] activity. 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 file Not on file Obstetrics History Last Filed Vital Signs Vital Sign Reading Time Taken Comments Blood Pressure 141/66 04/02/2021 1:20 PM AIRPLANE DESIGNER Pulse 71 04/02/2021 1:20 PM AIRPLANE DESIGNER Temperature 36.2 C (97.2 F) 04/02/2021 12:35 PM AIRPLANE DESIGNER Respiratory Rate 21 04/02/2021 1:20 PM AIRPLANE DESIGNER Oxygen Saturation 98% 04/02/2021 1:20 PM AIRPLANE DESIGNER Inhaled Oxygen Concentration - - Weight 88.5 kg (195 lb) 04/02/2021 9:09 AM AIRPLANE DESIGNER Height 165.1 cm (5' 5) 04/02/2021 9:09 AM AIRPLANE DESIGNER Body Mass Index 32.45 04/02/2021 9:09 AM AIRPLANE DESIGNER Plan of Treatment Not on file Medical Devices Implanted Type Area V Belt Mold Assembler And Curer Device Identifier Shelf Expiration Date Model / Serial / Lot Nic Surgical [id number] Kelman Multiflex Iii 5.5mm 13mm 1 Piece Uv Absorbent Anterior - [id number] - [id number] Implanted:Qty: 1 on 04/02/2021 by Ludwin Mcdaniel MD at [facility] Lens Left: [employer] [id number] 04/17/2021 [id number] / [id number] / 0 Insurance [facility] PPO [facility] HMO/PPO Address: [address] [place] [address] [facility] ACCESS CHOICE BLUE [employer] OOS [address] [place] [address] ACCESS CHOICE Member Subscriber Plan / Payer (Ef fective 2019-Present) Name:Maine Calvo James Relation to Subscriber:Self Name:Maine Calvo Payer ID:[id number] (NAIC) Type:[employer] Address: [address] CHOICE PLUS [facility] ADV[facility] Advance Directives For more information, please contact: [phone] * Full Code (Latest Code Status on File) Date Activated Date Inactivated Comments 12/21/2020 12:57 AM 12/31/2020 3:08 AM Care Teams Security Sme Relationship Specialty Start Date End Date Denny Crawley MD [id number] [address] PCP - General Internal Medicine 06/14/17 Jose Hale MD [address] [address] Orthopedic Surgery 12/30/20
[2024-11-15 20:49] LABS: Alanine Aminotransferase 26 U/L (6-35); Albumin Level 4.1 g/dL (3.5-5.1); Alkaline Phosphatase 107 U/L (38-126); Anion Gap 9 mmol/L (4-12); Aspartate Amino Transferase 33 U/L (14-36); Bilirubin,Total 0.6 mg/dL (0.2-1.3); Blood Urea Nitrogen 19 mg/dL (7-17); Calcium 9.5 mg/dL (8.4-10.2); Carbon Dioxide 17 mmol/L (22-30); Chloride 100 mmol/L (98-107); Estimated Glomerular Filt Rate 57; Glucose 145 mg/dL (65-110); Potassium 5.0 mmol/L (3.4-5.0); Sodium 126 mmol/L (137-145); Total Protein 7.7 g/dL (6.3-8.2)
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
[2024-11-15] MEDS: SODIUM CHLORIDE 0.9% IV 1,000 ML 999 ML IV CONT (21:47)
== END 2024-11-15 23:01 | disposition home or self-care (01) ==
PROVIDERS: Emergency Provider Emergency Medicine
DX: R06.02 Shortness of breath (principal); R23.2 Flushing; R20.8 Other disturbances of skin sensation; R25.8 Other abnormal involuntary movements; T36.8X5A Adverse effect of other systemic antibiotics, initial encounter; N39.0 Urinary tract infection, site not specified; E87.1 Hypo-osmolality and hyponatremia; E11.39 Type 2 diabetes mellitus with other diabetic ophthalmic complication; H42 Glaucoma in diseases classified elsewhere; E78.00 Pure hypercholesterolemia, unspecified; I10 Essential (primary) hypertension; F32.A Depression, unspecified; Z86.73 Personal history of transient ischemic attack (TIA), and cerebral infarction without residual deficits; Z90.710 Acquired absence of both cervix and uterus; Z79.84 Long term (current) use of oral hypoglycemic drugs; Z79.899 Other long term (current) drug therapy
CPT/HCPCS: 36415; 80053; 85025; 96361; 96365; 96375; 99284; A9270; J0696; J2919; J7030